=== PATIENT | male | born 1945 | race Caucasian/White ===

== ENCOUNTER → 2020-06-19 | Outpatient (CLI) | payer MEDICARE ==
[2014-05-10 12:00] VITALS: BP 143/79
[~2020-06-19] MED LIST: BUPR150T27 PO; DULO30CA44 PO; FURO-68 PO; INSU100I17 SQ; INSU100I18 SQ; INSU300I SQ; LACT10SO35 PO; LINA5TAB PO; LISI-334 PO; METF10007 PO; PANT40TA77 PO; PROP10TA PO
== END | disposition home or self-care (01) ==
LOC: LAB 14:57
PROVIDERS: ATTEND Internal Medicine Gastroenterology
DX: Z20.828 Contact with and (suspected) exposure to other viral communicable diseases (principal)
CPT/HCPCS: U0003-CS

== ENCOUNTER → 2020-06-22 | Day surgery (SDC) | payer MEDICARE, BC ==
[~2020-06-22] MED LIST changes: +IV RINGERS,LACTATED 1000ML 1,000 ML IV ONE; +LIDOCAINE 2% PF 5 ML VIAL. ONE; +PROPOFOL 10 MG/ML (20ML) VIAL. IV ONE
[2020-06-22 09:30] VITALS: BP 150/76
--- NOTE | 2020-06-29 11:08 | PATHOLOGY ---
[facility] Accession Number: [id number] . 01 Material submitted: . colon - RANDOM COLON BX . 01 Clinical history: . DIARRHEA, HX VARICES, COLITIS . 02 Diagnosis: Large bowel "random", endoscopic biopsy: - Large bowel mucosa with features suggestive of collagenous colitis. - Negative for active inflammation, crypt architectural distortion, granulomatous inflammation, dysplasia, and malignancy. (MLK:pit; 06/29/2020) QTP 06/29/2020 1037 Local . 02 Electronically signed: . Marco A Escalona MD, Pathologist NPI- [id number] . 01 Gross description: . The specimen is received in formalin, labeled "Derick Orourke, random colon biopsy". Received are multiple (greater than 10) segments of pale sanchez soft tissue ranging in size from 0.2 to 0.4 cm in maximum dimensions. The specimen is submitted entirely in cassette A1. (CAA; 06/22/2020) QAC/QA 06/22/2020 1653 Local . 02 Pathologist provided ICD-10: R19.7 . 02 CPT . 279310 Specimen Comment: A courtesy copy of this report has been sent to [phone], [phone] Specimen Comment: [id number] Specimen Comment: Report sent to / Performed at: 01 [facility] [address], [place] [id number] MD Dominick Draper MD Phone: [phone] Performed at: 02 [facility] [address] [place], [place] [id number] MD Derick Whaley MD Phone: [phone]
== END | disposition home or self-care (01) ==
LOC: ENDOS 07:38
PROVIDERS: ATTEND Internal Medicine Gastroenterology
DX: R19.7 Diarrhea, unspecified (principal); D64.9 Anemia, unspecified; I10 Essential (primary) hypertension; K52.89 Other specified noninfective gastroenteritis and colitis; K64.0 First degree hemorrhoids; K31.89 Other diseases of stomach and duodenum; I85.10 Secondary esophageal varices without bleeding; K74.60 Unspecified cirrhosis of liver; E11.9 Type 2 diabetes mellitus without complications; F41.9 Anxiety disorder, unspecified; Z98.890 Other specified postprocedural states; Z79.899 Other long term (current) drug therapy; Z83.3 Family history of diabetes mellitus; Z82.49 Family history of ischemic heart disease and other diseases of the circulatory system; Z79.84 Long term (current) use of oral hypoglycemic drugs
CPT/HCPCS: 43235; 45380; J2704

== ENCOUNTER 2020-09-03 10:00 | Outpatient (CLI) | payer MEDICARE, BC ==
[~2020-09-03] VITALS: Ht 190.5 cm; Wt 116.1 kg
[~2020-09-03 10:00] MED LIST changes: -IV RINGERS,LACTATED 1000ML 1,000 ML IV ONE; -LIDOCAINE 2% PF 5 ML VIAL. ONE; -PROPOFOL 10 MG/ML (20ML) VIAL. IV ONE
[2020-09-03] MEDS ORDERED: DULA0.75 SQ (10:31)
[2020-09-03] MEDS ORDERED: PROP80CA3 PO (10:31)
[2020-09-03 10:36] LABS: BASO % 1 % (0-3); EOS # 0.1 x10^3/uL (0.0-0.7); EOS % 3 % (0-3); HEMATOCRIT 32.5 % (39.0-53.0); HEMOGLOBIN 11.1 g/dL (13.0-17.5); LYMPH # 0.6 x10^3/uL (1.0-4.8); LYMPH % 22 % (24-48); MEAN CORPUSCULAR HEMOGLOBIN 33 pg (25-35); MEAN CORPUSCULAR HGB CONC 34 g/dL (31-37); MEAN CORPUSCULAR VOLUME 98 fL (79-100); MONO # 0.4 x10^3/uL (0.0-1.1); MONO % 13 % (0-9); NEUT # 1.7 x10^3/uL (1.8-7.7); NEUT % 62 % (31-73); PLATELET COUNT 73 x10^3/uL (140-400); RED BLOOD COUNT 3.33 x10^6/uL (4.30-5.70); RED CELL DISTRIBUTION WIDTH 15.3 % (11.5-14.5); WHITE BLOOD COUNT 2.8 x10^3/uL (4.0-11.0)
[2020-09-03 10:40] VITALS: BP 143/78
[2020-09-03] MEDS ORDERED: LIDOCAINE WITH 8.4% SOD BICARB 3 ML DISP.SYRIN. ONE (10:46)
[2020-09-03 10:47] LABS: CALCIUM 8.8 mg/dL (8.5-10.1); GFR 72.8; POTASSIUM 4.7 mmol/L (3.5-5.1)
[2020-09-03 11:07] VITALS: BP 150/78
[2020-09-03] MEDS ORDERED: LIDOCAINE WITH 8.4% SOD BICARB 3 ML DISP.SYRIN. INJ ONE (11:15)
[2020-09-03 11:20] VITALS: BP 150/70
[2020-09-03] MEDS ORDERED: ALBUMIN HUMAN 25% 200 ML IV ONE (11:31)
[2020-09-03 11:35] VITALS: BP 149/72
[2020-09-03] MEDS ORDERED: ALBUMIN HUMAN 25% 100 ML IV ONE ×2 (11:45)
[2020-09-03 11:50] VITALS: BP 131/69
[2020-09-03 12:20] VITALS: BP 152/76
--- NOTE | 2020-09-03 12:38 | NUR ---
pt discharged home with family. JONNA cheng.
--- NOTE | 2020-09-03 15:29 | RAD ---
Ultrasound-guided paracentesis 09/03/2020 1:26 PM Procedure: The risks and benefits of the procedure were discussed the patient. Informed consent was obtained. A timeout procedure was performed. Sonographic evaluation of the abdomen was performed demonstrating ascites . The right lower quadrant was prepped and draped using maximum sterile barrier technique. 1% lidocaine without epinephrine was administered for local anesthesia. Real-time ultrasonographic guidance was used in passing a 5 Frisian Yueh catheter into the fluid collection. 6.5 L of serous ascites was removed. The catheter was removed and pressure held to achieve hemostasis. A sterile dressing was applied. Impression: Successful ultrasound-guided paracentesis
== END 2020-09-03 12:42 | disposition home or self-care (01) ==
LOC: INTRAD 10:00
PROVIDERS: ATTEND Family Medicine
DX: R18.8 Other ascites (principal); I10 Essential (primary) hypertension; E78.00 Pure hypercholesterolemia, unspecified; F41.9 Anxiety disorder, unspecified; F32.9 Major depressive disorder, single episode, unspecified; M19.90 Unspecified osteoarthritis, unspecified site; M10.9 Gout, unspecified; Z85.46 Personal history of malignant neoplasm of prostate; Z79.899 Other long term (current) drug therapy; Z98.890 Other specified postprocedural states
CPT/HCPCS: 36415; 49083; 80048; 85025; 85610; C1892; J3490; P9046

== ENCOUNTER 2020-10-18 08:28 | Outpatient (CLI) | payer MEDICARE, BC ==
[2020-10-18] VITALS (8 sets, daily range): BP systolic 127–154; BP diastolic 62–86
[~2020-10-18] VITALS: Ht 190.5 cm; Wt 108.9 kg
[~2020-10-18 08:28] MED LIST changes: +DULA0.75 SQ; +PROP80CA3 PO
[2020-10-18 08:53] LABS: HEMATOCRIT 32.7 % (39.0-53.0); RED BLOOD COUNT 3.38 x10^6/uL (4.30-5.70); RED CELL DISTRIBUTION WIDTH 14.8 % (11.5-14.5); WHITE BLOOD COUNT 2.9 x10^3/uL (4.0-11.0)
[2020-10-18 09:02] LABS: CALCIUM 8.5 mg/dL (8.5-10.1); CREATININE 1.1 mg/dL (0.7-1.3); GFR 65.3
[2020-10-18 09:06] LABS: PROTHROMBIN TIME PATIENT 15.8 SEC (11.7-14.0)
[2020-10-18] MEDS ORDERED: LIDOCAINE WITH 8.4% SOD BICARB 3 ML DISP.SYRIN. ONE (09:19)
[2020-10-18] MEDS ORDERED: LIDOCAINE WITH 8.4% SOD BICARB 3 ML DISP.SYRIN. INJ ONE (09:30)
[2020-10-18] MEDS ORDERED: ALBUMIN HUMAN 25% 100 ML IV ONE ×4 (09:48→10:10)
--- NOTE | 2020-10-18 10:59 | NUR ---
Patient d/c, taken to vehicle via wheelchair. Instructions on incision site care, paracentesis given to patient. No questions at time of d/c. Told to continue home medications. All belongings w/ patient.
--- NOTE | 2020-10-18 12:18 | RAD ---
Ultrasound-guided paracentesis 10/18/2020 10:14 AM Procedure: The risks and benefits of the procedure were discussed the patient. Informed consent was obtained. A timeout procedure was performed. Sonographic evaluation of the abdomen was performed demonstrating ascites . The right lower quadrant was prepped and draped using maximum sterile barrier technique. 1% lidocaine without epinephrine was administered for local anesthesia. Real-time ultrasonographic guidance was used in passing a 5 Lebanese Yueh catheter into the fluid collection. 8.1 L of serous ascites was removed. The catheter was removed and pressure held to achieve hemostasis. A sterile dressing was applied. Impression: Successful ultrasound-guided paracentesis
== END 2020-10-18 11:00 | disposition home or self-care (01) ==
LOC: INTRAD 08:28
PROVIDERS: ATTEND Family Medicine
DX: R18.8 Other ascites (principal); K74.60 Unspecified cirrhosis of liver; I10 Essential (primary) hypertension; E78.00 Pure hypercholesterolemia, unspecified; E11.9 Type 2 diabetes mellitus without complications; M19.90 Unspecified osteoarthritis, unspecified site; F41.9 Anxiety disorder, unspecified; M10.9 Gout, unspecified; F32.9 Major depressive disorder, single episode, unspecified; Z98.42 Cataract extraction status, left eye; Z98.41 Cataract extraction status, right eye; Z90.89 Acquired absence of other organs; Z79.899 Other long term (current) drug therapy; Z98.890 Other specified postprocedural states; Z87.19 Personal history of other diseases of the digestive system; Z86.69 Personal history of other diseases of the nervous system and sense organs; Z85.46 Personal history of malignant neoplasm of prostate; Z79.4 Long term (current) use of insulin; Z72.89 Other problems related to lifestyle
CPT/HCPCS: 36415; 49083; 80048; 85027; 85610; C1892; J3490; P9046

== ENCOUNTER 2020-11-01 07:39 | Outpatient (CLI) | payer MEDICARE, BC ==
[~2020-11-01] VITALS: Ht 190.5 cm; Wt 108.9 kg
[2020-11-01] VITALS (8 sets, daily range): BP systolic 112–159; BP diastolic 62–83
[2020-11-01] MEDS ORDERED: LIDOCAINE WITH 8.4% SOD BICARB 3 ML DISP.SYRIN. ONE (08:12)
[2020-11-01] MEDS: LIDOCAINE WITH 8.4% SOD BICARB 3 ML DISP.SYRIN. IJ ONE ×2 (08:41→08:45)
[2020-11-01] MEDS ORDERED: ALBUMIN HUMAN 25% 200 ML IV ONE (08:57)
[2020-11-01] MEDS ORDERED: ALBUMIN HUMAN 25% 100 ML IV ONE ×2 (09:15)
--- NOTE | 2020-11-01 12:59 | RAD ---
Procedure: Ultrasound guided paracentesis Clinical Indication: Adult male with abdominal ascites Sedation: Local anesthesia only Antibiotics: None Fluoro Time: None Contrast: Not applicable Sterility: The procedure was performed in its entirety using appropriate elements of sterile technique. Consent: The procedure was explained in its entirety to the patient or the patients designated residential sales representative by a member of the treatment team, including a discussion of the risks, benefits and commonly accepted alternatives to the procedure, as well as the expected consequences of no therapy whatsoever. Discussion of the risks included, but was not limited to, those that are most frequent and those that are rare but possibly severe or life-threatening, as well as the possibility of unforeseen complications. Technique and Findings: Following informed consent, the patient was prepped and draped in the usual sterile fashion. Ultrasound interrogation of the abdomen revealed abdominal ascites. A hard copy ultrasound image was recorded. 1% Lidocaine was used to achieve local anesthesia over the area of interest, and a 6 Lao [id number] catheter was advanced into the peritoneal cavity under ultrasound guidance. 7400 cc of thin yellow ascites was then withdrawn. The catheter was removed and hemostasis was achieved with manual compression. Complications: No immediate Impression: 1. Ultrasound-guided paracentesis as described
== END 2020-11-01 10:20 | disposition home or self-care (01) ==
LOC: INTRAD 07:39
PROVIDERS: ATTEND Family Medicine
DX: K74.69 Other cirrhosis of liver (principal); I10 Essential (primary) hypertension; E11.9 Type 2 diabetes mellitus without complications; E78.00 Pure hypercholesterolemia, unspecified; M19.90 Unspecified osteoarthritis, unspecified site; M10.9 Gout, unspecified; F41.9 Anxiety disorder, unspecified; F32.9 Major depressive disorder, single episode, unspecified; Z85.46 Personal history of malignant neoplasm of prostate; Z79.899 Other long term (current) drug therapy; Z79.4 Long term (current) use of insulin; Z98.890 Other specified postprocedural states; Z72.89 Other problems related to lifestyle
CPT/HCPCS: 49083; C1892; J3490; P9046

== ENCOUNTER 2020-11-08 09:05 | Inpatient (IN) | payer MEDICARE, BC ==
[~2020-11-08] VITALS: Ht 190.5 cm; Wt 102.0 kg
[2020-11-08 08:50] VITALS: BP 142/71
[~2020-11-08 09:05] MED LIST changes: -LISI-334 PO; +LISI20TA18 PO
[2020-11-08] MEDS ORDERED: LOPE-101 PO (10:48)
[2020-11-08 11:59] VITALS: BP 141/70
--- NOTE | 2020-11-08 12:11 | PDOC2 ---
GI CONSULT Date of Service: DATE: 11/08/20 TIME: 11:47 Reason For Consult: cirrhosis liver, paracentesis, chronic diarrhea HPI: HPI: 75 y/o male transferred from [facility] w/ shortness of breath, +COVID 11/02/20. H/o cirrhosis reportedly from fatty liver and alcohol. H/o variceal bleeding and ascites/paracentesis in 2013. S/p TIPS then - no issues w/ bleeding or ascites since then until 08/2020 - TIPS thrombosed (see US here 09/17, also reports MRI by urologist in showed non-functioning TIPS). Paracentesis x 4 since then, last 7.4L on 11/01. Takes furosemide at home. He thought maybe he needed paracentesis again because he felt so short of breath but also says his abdomen is still pretty soft and isn't as big as it has been in the past before previous paracentesis. At [facility]: WBC 3.4, Hgb 10.8, MCV 95, plt 77, INR 1.4, D-dimer 7.41, bili 2.2, AST 60, ALT45, Alk Phos 86, AG ratio 0.7, BNP 2992, troponin 0.066, magnesium 1.6, lactic acid 2.3, ammonia 62. CT chest: no PE, groundglass and bandlike opacities throughout both lungs c/w atypical infection, cirrhosis w/ TIPS and moderate ascites. No reflux, dysphagia, n/v, constipation, hematochezia, melena, or change in appetite. EGD and colonoscopy w/ Dr. Hunter in 06/2020 - pathology indicates colon biopsies w/ collagenous colitis. Takes Imodium PRN - current bowel pattern is 1 soft stool every other day or so. No GB, pancreas, or PUD history. No NSAIDs. Hasn't been drinking recently. PMH: PMH: HTN, HLD, DM, prostate cancer, OA, gout radiation, bilateral knee replacement, cataract removal, tonsillectomy FH: Family History: No pertinent hx Social History: Smoke: No ALCOHOL: other (intermittent sobriety, no alcohol recently) Drugs: None ROS: GEN: Denies fevers, chills, sweats HEENT: Denies blurred vision, sore throat CV: Denies chest pain RESP: +SOA GI: Per HPI : Denies hematuria, dysuria ENDO: Denies weight changes NEURO: Denies confusion, dizziness MSK: +weakness SKIN: Denies jaundice, pruritus Vitals: Vitals: Vital Signs Date Time Temp Pulse Resp B/P (MAP) Pulse Ox O2 Delivery O2 Flow Rate FiO2 11/08/20 10:49 Nasal Cannula 3.0 11/08/20 08:50 97.0 73 18 142/71 (94) 97 97.0 Labs: Labs: Per HPI. Allergies: Coded Allergies: No Known Drug Allergies (Unverified , 06/22/20) Imaging: Imaging: Per HPI. PE: GEN: breathing heavily HEENT: Atraumatic, PERRL LUNGS: tachypneic, diminished, NC 3L HEART: RR ABD: round, large w/ ascites, still soft EXTREMITY: trace BLE edema SKIN: No rashes, no jaundice NEURO/PSYCH: A & O 3 A/P: A/P: COVID-19 infection (+11/02), resp failure - per primary Pancytopenia, coagulopathy, mildly elevated bili and AST, hyperammonemia Elevated BNP and D-dimer, mildly elevated troponin, hypomagnesemia, lactic acidosis - per primary Cirrhosis, h/o variceal bleeding and ascites - s/p TIPS in 2013 - now thrombosed and requiring paracentesis every couple weeks (last 11/01/20 7.4L) - MELD 16 CRC screen - UTD (06/2020) Collagenous colitis - takes Imodium PRN - denies diarrhea currently -- Moderate ascites on chest CT. Could consider repeating paracentesis soon - will review w/ Dr. Hunter. DAV LUNDY Nov 08, 2020 12:11
[2020-11-08] MEDS ORDERED: LACTULOSE 20 GM/30 ML SOLUTION. PO PRN (12:15)
[2020-11-08] MEDS ORDERED: DEXAMETHASONE SOD PHOS 4 MG/ML VIAL IVP ONE (12:30)
[2020-11-08] MEDS ORDERED: MAG HYDROX/ALUMINUM HYD/SIMETH 30 ML ORAL.SUSP PO PRN (12:45)
[2020-11-08] MEDS ORDERED: ACETAMINOPHEN 325 MG TABLET. PO PRN (12:45)
[2020-11-08] MEDS ORDERED: CALCIUM CARBONATE 500 MG TAB.CHEW PO PRN (12:45)
[2020-11-08] MEDS ORDERED: BISACODYL 10 MG SUPP.RECT. PR PRN (12:45)
[2020-11-08] MEDS: cefTRIAXone IV Push 1 GM VIAL. IVP SCH (13:11)
[2020-11-08 13:20] LABS: BASO % 0 % (0-3); EOS % 0 % (0-3); HEMATOCRIT 32.8 % (39.0-53.0); LYMPH # 0.1 x10^3/uL (1.0-4.8); LYMPH % 8 % (24-48); MEAN CORPUSCULAR HEMOGLOBIN 32 pg (25-35); MEAN CORPUSCULAR HGB CONC 34 g/dL (31-37); MEAN CORPUSCULAR VOLUME 96 fL (79-100); MONO # 0.1 x10^3/uL (0.0-1.1); MONO % 7 % (0-9); NEUT # 1.3 x10^3/uL (1.8-7.7); NEUT % 85 % (31-73); PLATELET COUNT 57 x10^3/uL (140-400); RED BLOOD COUNT 3.42 x10^6/uL (4.30-5.70); RED CELL DISTRIBUTION WIDTH 14.8 % (11.5-14.5)
[2020-11-08 13:23] LABS: WHITE BLOOD COUNT 1.6 x10^3/uL (4.0-11.0)
[2020-11-08 13:43] LABS: ALBUMIN 2.6 g/dL (3.4-5.0); ALBUMIN/GLOBULIN RATIO 0.6 (1.0-1.7); CALCIUM 8.4 mg/dL (8.5-10.1); CREATININE 1.3 mg/dL (0.7-1.3); GFR 53.8; TOTAL BILIRUBIN 2.4 mg/dL (0.2-1.0); TOTAL PROTEIN 6.9 g/dL (6.4-8.2)
--- NOTE | 2020-11-08 13:57 | PDOC1 ---
History and Physical Date of Admission Date of Admission DATE: 11/08/20 TIME: 13:57 Identification/Chief Complaint Chief Complaint Shortness of breath Source Source: Chart review, Patient History of Present Illness History of Present Illness Mr Orourke is a 75-year-old male w/ PMHx prostate ca (s/p radx 2014), depression, DM2, Cirrhosis who presents to [facility] with report of shortness of breath that occurred upon waking day of admission when getting up to go to the restroom. Patient was recently diagnosed with COVID-19 on 11/02/2020. Has cirrhosis with regular paracentesis, last paracentesis was approximately 1 week ago at [facility]. Patient reports his abdomen does not feel overly distended and does not think he needs paracentesis at this time. Reports subjective fever and chills. Denies trauma. Very short of breath. H/o cirrhosis reportedly from fatty liver and alcohol. H/o variceal bleeding and ascites/paracentesis in 2013. S/p TIPS then - no issues w/ bleeding or ascites since then until 08/2020 - TIPS thrombosed (see US here 09/17, also reports MRI by urologist in showed non-functioning TIPS). Paracentesis x 4 since then, last 7.4L on 11/01. Labs at [facility] with WBC 3.4, Hb 10.8, platelets 77, NA 136, K3.9, BUN 20, CR 1, glucose 137, magnesium 1.6, bilirubin 2.2, AST 60, ALT 45, INR 1.4, troponin 0 0.066, BNP 2592, albumin 2.6, ammonia 62, lactic acid 2.3, D-dimer 7.41 CTPA with no pulmonary embolism, bilateral diffuse groundglass opacities, cirrhosis with TIPS moderate ascites. EKG appears NSR at 88 bpm, some baseline artifact noted primarily to aVL, NO ST elevation, LAFB, QRS 86ms, QT/QTc 396/483ms Patient was found to be hypoxic upon EMS arrival. Improved with supplemental O2. Patient transferred to [place] for further care due to lack of GI resources at [facility]. Seen bedside with O2 saturations 91% on 3 L nasal cannula O2. Patient notes that he feels terrible. He is requested Covid treatment advised remdesivir and liver disease has not been well studied. He wishes to move forward with treatment. Past Medical History Cardiovascular: HTN Hepatobiliary: Cirrhosis Musculoskeletal: Osteoarthritis Endocrine: Diabetes Past Surgical History Past Surgical History: Other (TIPS) Family History Family History: Hypertension Social History Smoke: No ALCOHOL: other (intermittent sobriety, no alcohol recently) Drugs: None Current Medications Current Medications Current Medications Furosemide (Lasix) 40 mg DAILY PO ; Start 11/09/20 at 09:00 Lactulose (Lactulose) 20 gm DAILY PO ; Start 11/09/20 at 09:00 Lactulose (Lactulose) 20 gm PRN DAILY PRN PO CONSTIPATION; Start 11/08/20 at 12:15 Dexamethasone Sodium Phosphate (Decadron) 6 mg DAILY IVP ; Start 11/09/20 at 09:00 Dexamethasone Sodium Phosphate (Decadron) 6 mg 1X ONCE IVP Last administered on 11/08/20at 13:10; Start 11/08/20 at 12:30; Stop 11/08/20 at 12:35; Status DC Ceftriaxone Sodium (Rocephin) 1 gm Q24H IVP Last administered on 11/08/20at 13:11; Start 11/08/20 at 13:00; Stop 11/12/20 at 13:01 Doxycycline Hyclate 100 mg/ Dextrose 100 ml @ 50 mls/hr Q12HR IV ; Start 11/08/20 at 21:00; Stop 11/13/20 at 20:59 Ondansetron HCl (Zofran) 4 mg PRN Q6HRS PRN IVP NAUSEA/VOMITING; Start 11/08/20 at 12:45 Al Hydroxide/Mg Hydroxide (Mylanta Plus Xs) 30 ml PRN Q3HRS PRN PO HEARTBURN / GAS; Start 11/08/20 at 12:45 Calcium Carbonate/ Glycine (Tums) 500 mg PRN Q3HRS PRN PO UPSET STOMACH; Start 11/08/20 at 12:45 Acetaminophen (Tylenol) 650 mg PRN Q6HRS PRN PO Headaches, Temp > 101.5F; Start 11/08/20 at 12:45 Bisacodyl (Dulcolax Supp) 10 mg PRN DAILY PRN NC CONSTIPATION; Start 11/08/20 at 12:45 Enoxaparin Sodium (Lovenox 40mg Syringe) 40 mg Q24H SQ ; Start 11/08/20 at 16:00 Active Scripts Active Reported Imodium A-D (Loperamide HCl) 2 Mg Capsule 2 Mg PO PRN PRN Propranolol Hcl 80 Mg Cap.sa.24h 80 Mg PO DAILY Lisinopril 20 Mg Tablet 20 Mg PO DAILY Lasix (Furosemide) 40 Mg Tablet 40 Mg PO DAILY Metformin Hcl 1,000 Mg Tablet 1,000 Mg PO BIDWMEALS Toujeo Solostar (Insulin Glargine,Hum.rec.anlog) 300 Unit/1 Ml Insuln.pen 30 Unit SQ DAILY Novolog Flexpen (Insulin Aspart) 100 Unit/1 Ml Insuln.pen 25 Unit SQ TIDAC uses sliding scale based on Dexacom Duloxetine Hcl 30 Mg Capsule.dr 30 Mg PO DAILY Allergies Allergies: Coded Allergies: No Known Drug Allergies (Unverified , 06/22/20) ROS General: YES: Chills, Fatigue, Malaise, Appetite; No: Night Sweats, Other PSYCHOLOGICAL ROS: YES: Anxiety; No: Behavioral Disorder, Concentration difficultie, Decreased libido, Depression, Disorientation, Hallucinations, Hostility, Irritablity, Memory difficulties, Mood Swings, Obsessive thoughts, Physical abuse, Sexual abuse, Sleep disturbances, Suicidal ideation, Other Eyes: No Blurry vision, No Decreased vision, No Double vision, No Dry eyes, No Excessive tearing, No Eye Pain, No Itchy Eyes, No Loss of vision, No Photophobia, No Scotomata, No Uses contacts, No Uses glasses, No Other HEENT: No: Heacaches, Visual Changes, Hearing change, Nasal congestion, Nasal discharge, Oral lesions, Sinus pain, Sore Throat, Epistaxis, Sneezing, Snoring, Tinnitus, Vertigo, Vocal changes, Other ALLERGY AND IMMUNOLOGY: No: Hives, Insect Bite Sensitivity, Itchy/Watery Eyes, Nasal Congestion, Post Nasal Drip, Seasonal Allergies, Other Hematological and Lymphatic: YES: Bleeding Problems; No: Blood Clots, Blood Transfusions, Brusing, Night Sweats, Pallor, Swollen Lymph Nodes, Other ENDOCRINE: No: Breast Changes, Galactorrhea, Hair Pattern Changes, Hot Flashes, Malaise/lethargy, Mood Swings, Palpitations, Polydipsia/polyuria, Skin Changes, Temperature Intolerance, Unexpected Weight Changes, Other Breast: No New/Changing Breast Lumps, No Nipple changes, No Nipple discharge, No Other Respiratory: YES: Cough, Shortness of breath; No: Hemoptysis, Orthopnea, Pleuritic Pain, SOB with excertion, Sputum Changes, Stridor, Tachypnea, Wheezing, Other Cardiovascular: No Chest Pain, No Palpitations, No Orthopnea, No Paroxysmal Noc. Dyspnea, No Edema, No Lt Headedness, No Other Gastrointestinal: Yes Nausea; No Vomiting, No Abdominal Pain, No Diarrhea, No Constipation, No Melena, No Hematochezia, No Other Genitourinary: No Dysuria, No Frequency, No Incontinence, No Hematuria, No Retention, No Discharge, No Urgency, No Pain, No Flank Pain, No Other, No , No , No , No , No , No , No Musculoskeletal: No Gait Disturbance, No Joint Pain, No Joint Stiffness, No Joint Swelling, No Muscle Pain, No Muscular Weakness, No Pain In:, No Swelling In:, No Other Neurological: No Behavorial Changes, No Bowel/Bladder ControlChng, No Confusion, No Dizziness, No Gait Disturbance, No Headaches, No Impaired Coor d/balance, No Memory Loss, No Numbness/Tingling, No Seizures, No Speech Problems, No Tremors, No Visual Changes, No Weakness, No Other Skin: No Dry Skin, No Eczema, No Hair Changes, No Lumps, No Mole Changes, No Mottling, No Nail Changes, No Pruritus, No Rash, No Skin Lesion Changes, No Other, No Acne Physical Exam General: Alert, Oriented X3, Cooperative, moderate distress HEENT: Atraumatic, PERRLA, EOMI, Mucous membr. moist/pink Lungs: Other (Bilateral rhonchi) Heart: S1S2, RRR, no thrills, no rubs, no gallops, no murmurs Abdomen: Normal bowel sounds, Soft, No tenderness, No hepatosplenomegaly, No masses, Other (Fluid wave) Rectal Exam: not examined Extremities: No clubbing, No cyanosis, No edema, Normal pulses, No tenderness/swelling Skin: No rashes, No breakdown, No significant lesion Neuro: Normal gait, Normal speech, Strength at 5/5 X4 ext, Normal tone, Sensation intact, Cranial nerves 3-12 NL, Reflexes 2+ Psych/Mental Status: Mental status NL, Mood NL Vitals Vitals Vital Signs Date Time Temp Pulse Resp B/P (MAP) Pulse Ox O2 Delivery O2 Flow Rate FiO2 11/08/20 11:59 97.5 71 22 141/70 (93) 98 Nasal Cannula 3.0 97.5 Labs Labs Laboratory Tests Test 11/08/20 13:08 White Blood Count 1.6 x10^3/uL (4.0-11.0) Red Blood Count 3.42 x10^6/uL (4.30-5.70) Hemoglobin 11.0 g/dL (13.0-17.5) Hematocrit 32.8 % (39.0-53.0) Mean Corpuscular Volume 96 fL (79-100) Mean Corpuscular Hemoglobin 32 pg (25-35) Mean Corpuscular Hemoglobin Concent 34 g/dL (31-37) Red Cell Distribution Width 14.8 % (11.5-14.5) Platelet Count 57 x10^3/uL (140-400) Neutrophils (%) (Auto) 85 % (31-73) Lymphocytes (%) (Auto) 8 % (24-48) Monocytes (%) (Auto) 7 % (0-9) Eosinophils (%) (Auto) 0 % (0-3) Basophils (%) (Auto) 0 % (0-3) Neutrophils # (Auto) 1.3 x10^3/uL (1.8-7.7) Lymphocytes # (Auto) 0.1 x10^3/uL (1.0-4.8) Monocytes # (Auto) 0.1 x10^3/uL (0.0-1.1) Eosinophils # (Auto) 0.0 x10^3/uL (0.0-0.7) Basophils # (Auto) 0.0 x10^3/uL (0.0-0.2) Sodium Level 134 mmol/L (136-145) Potassium Level 5.0 mmol/L (3.5-5.1) Chloride Level 100 mmol/L (98-107) Carbon Dioxide Level 27 mmol/L (21-32) Anion Gap 7 (6-14) Blood Urea Nitrogen 21 mg/dL (8-26) Creatinine 1.3 mg/dL (0.7-1.3) Estimated GFR (Cockcroft-Gault) 53.8 BUN/Creatinine Ratio 16 (6-20) Glucose Level 273 mg/dL (70-99) Calcium Level 8.4 mg/dL (8.5-10.1) Total Bilirubin 2.4 mg/dL (0.2-1.0) Aspartate Amino Transf (AST/SGOT) 56 U/L (15-37) Alanine Aminotransferase (ALT/SGPT) 44 U/L (16-63) Alkaline Phosphatase 83 U/L (46-116) Total Protein 6.9 g/dL (6.4-8.2) Albumin 2.6 g/dL (3.4-5.0) Albumin/Globulin Ratio 0.6 (1.0-1.7) Laboratory Tests Test 11/08/20 13:08 White Blood Count 1.6 x10^3/uL (4.0-11.0) Red Blood Count 3.42 x10^6/uL (4.30-5.70) Hemoglobin 11.0 g/dL (13.0-17.5) Hematocrit 32.8 % (39.0-53.0) Mean Corpuscular Volume 96 fL (79-100) Mean Corpuscular Hemoglobin 32 pg (25-35) Mean Corpuscular Hemoglobin Concent 34 g/dL (31-37) Red Cell Distribution Width 14.8 % (11.5-14.5) Platelet Count 57 x10^3/uL (140-400) Neutrophils (%) (Auto) 85 % (31-73) Lymphocytes (%) (Auto) 8 % (24-48) Monocytes (%) (Auto) 7 % (0-9) Eosinophils (%) (Auto) 0 % (0-3) Basophils (%) (Auto) 0 % (0-3) Neutrophils # (Auto) 1.3 x10^3/uL (1.8-7.7) Lymphocytes # (Auto) 0.1 x10^3/uL (1.0-4.8) Monocytes # (Auto) 0.1 x10^3/uL (0.0-1.1) Eosinophils # (Auto) 0.0 x10^3/uL (0.0-0.7) Basophils # (Auto) 0.0 x10^3/uL (0.0-0.2) Sodium Level 134 mmol/L (136-145) Potassium Level 5.0 mmol/L (3.5-5.1) Chloride Level 100 mmol/L (98-107) Carbon Dioxide Level 27 mmol/L (21-32) Anion Gap 7 (6-14) Blood Urea Nitrogen 21 mg/dL (8-26) Creatinine 1.3 mg/dL (0.7-1.3) Estimated GFR (Cockcroft-Gault) 53.8 BUN/Creatinine Ratio 16 (6-20) Glucose Level 273 mg/dL (70-99) Calcium Level 8.4 mg/dL (8.5-10.1) Total Bilirubin 2.4 mg/dL (0.2-1.0) Aspartate Amino Transf (AST/SGOT) 56 U/L (15-37) Alanine Aminotransferase (ALT/SGPT) 44 U/L (16-63) Alkaline Phosphatase 83 U/L (46-116) Total Protein 6.9 g/dL (6.4-8.2) Albumin 2.6 g/dL (3.4-5.0) Albumin/Globulin Ratio 0.6 (1.0-1.7) Images Images CTPA with no pulmonary embolism, bilateral diffuse groundglass opacities, cirrhosis with TIPS moderate ascites. VTE Prophylaxis Ordered VTE Prophylaxis Devices: No VTE Pharmacological Prophylaxi: Yes Assessment/Plan Assessment/Plan A/P: Acute respiratory failure with Hypoxia - related to COVID 19 pneumonia, will also treat for likely gram negative pneumonia as well given his cirrhosis and risk factors.. Steroids and remdesivir ordered. Wean O2 as tolerated COVID-19 - with pneumonia, have d/w patient risks of remdesivir in liver disease, he wishes to have treatment Cirrhosis - with ascites. S/p TIPS for variceal bleeding in 2013. GI following. Will continue diuretics and monitor. EGD and colonoscopy w/ Dr. Hunter in 06/2020 - path w/ collagenous colitis. Hyperammonemia - likely related to cirrhosis Elevated troponin - likely demand ischemia, will trend Anemia- likely of chronic disease. will trend Leukopenia - likely related to liver disease and covid 19, will monitor HTN HLD DM -on Toujeo and sliding scale, will convert to Lantus and increase sliding scale while he is on dexamethasone. Prostate cancer - s/p radiation therapy, in remission OA - stable Gout - not in flare currently FEN - ADA diet PPX - lovenox, will watch platelets FULL CODE Dispo - inpatient telemetry monitoring in COVID 19 isolation unit Justifications for Admission Other Justification Acute respiratory failure with hypoxia, COVID-19 pneumonia VERÓNICA HOWELL MD Nov 08, 2020 13:57
[2020-11-08] MEDS ORDERED: DEXTROSE 50% 25 GM / 50ML DISP.SYRIN. IV PRN (14:15)
[2020-11-08] MEDS ORDERED: guaiFENesin DM 200MG/20MG 10 ML SYRUP PO PRN (14:45)
[2020-11-08] MEDS ORDERED: REMDESIVIR LOAD in IV NORMAL SALINE 250ML TV IV ONE (15:00)
[2020-11-08 15:02] VITALS: BP 148/96
[2020-11-08 15:09] LABS: % BANDS 14 % (0-9); % LYMPHS 2 % (24-48); % MONOS 3 % (0-10); % SEGS 81 % (35-66)
[2020-11-08 15:10] LABS: PLT ESTIMATE DECREASED (ADEQUATE)
[2020-11-08] MEDS: ENOXAPARIN 40 MG/0.4 ML SYRINGE. SQ SCH (15:52)
[2020-11-08] MEDS: THIAMINE 100 MG TABLET. PO SCH (15:52)
[2020-11-08] MEDS: ZINC SULFATE 220 MG CAPSULE. PO SCH (15:52)
[2020-11-08] MEDS: PROPRANOLOL ER 80 MG CAP.ER.24H. PO SCH (15:52)
[2020-11-08] MEDS: INSULIN LISPRO 300 UNITS/3 ML VIAL. SQ SCH ×2 (17:30→17:31)
[2020-11-08] MEDS: INSULIN GLARGINE SYRINGE. SQ SCH (20:46)
[2020-11-08] MEDS: DOXYCYCLINE HYCLATE 100 MG in IV DEXTROSE 5% 100ML 100 ML IV SCH (20:46)
[2020-11-08 20:51] VITALS: BP 172/79
[2020-11-08] MEDS ORDERED: INSULIN LISPRO 300 UNITS/3 ML VIAL. SQ ONE (21:45)
[2020-11-08] MEDS: ALBUTEROL SULFATE 8GM INHALER. INH PRN (22:55)
[2020-11-08 23:22] VITALS: BP 138/80
[2020-11-09 04:52] LABS: BASO % 0 % (0-3); EOS % 0 % (0-3); HEMATOCRIT 29.2 % (39.0-53.0); HEMOGLOBIN 9.9 g/dL (13.0-17.5); LYMPH # 0.1 x10^3/uL (1.0-4.8); LYMPH % 10 % (24-48); MEAN CORPUSCULAR HEMOGLOBIN 32 pg (25-35); MEAN CORPUSCULAR HGB CONC 34 g/dL (31-37); MEAN CORPUSCULAR VOLUME 94 fL (79-100); MONO # 0.2 x10^3/uL (0.0-1.1); MONO % 12 % (0-9); NEUT % 78 % (31-73); PLATELET COUNT 61 x10^3/uL (140-400); RED CELL DISTRIBUTION WIDTH 14.8 % (11.5-14.5)
[2020-11-09 04:54] LABS: WHITE BLOOD COUNT 1.3 x10^3/uL (4.0-11.0)
[2020-11-09 05:02] VITALS: BP 156/81
[2020-11-09 05:13] LABS: ALBUMIN 2.2 g/dL (3.4-5.0); ALBUMIN/GLOBULIN RATIO 0.6 (1.0-1.7); CALCIUM 7.9 mg/dL (8.5-10.1); CREATININE 1.1 mg/dL (0.7-1.3); GFR 65.3; POTASSIUM 4.3 mmol/L (3.5-5.1); TOTAL BILIRUBIN 1.3 mg/dL (0.2-1.0); TOTAL PROTEIN 6.1 g/dL (6.4-8.2)
[2020-11-09 05:35] LABS: MAGNESIUM 2.1 mg/dL (1.8-2.4)
[2020-11-09 07:00] VITALS: BP 153/70
[2020-11-09] MEDS: THIAMINE 100 MG TABLET. PO SCH (08:48)
[2020-11-09] MEDS: PROPRANOLOL ER 80 MG CAP.ER.24H. PO SCH (08:48)
[2020-11-09] MEDS: DOXYCYCLINE HYCLATE 100 MG in IV DEXTROSE 5% 100ML 100 ML IV SCH ×2 (08:48→20:12)
[2020-11-09] MEDS: DULoxetine HCL 30 MG CAPSULE.DR PO SCH (08:48)
[2020-11-09] MEDS: ZINC SULFATE 220 MG CAPSULE. PO SCH (08:48)
[2020-11-09] MEDS: LACTULOSE 20 GM/30 ML SOLUTION. PO SCH ×2 (08:49→09:00)
[2020-11-09] MEDS: DEXAMETHASONE SOD PHOS 4 MG/ML VIAL IVP SCH (08:49)
[2020-11-09] MEDS: FUROSEMIDE 40 MG TABLET. PO SCH (08:49)
[2020-11-09] MEDS: INSULIN LISPRO 300 UNITS/3 ML VIAL. SQ SCH ×6 (08:54→17:04)
--- NOTE | 2020-11-09 10:20 | PDOC ---
Date of Service: DATE: 11/09/20 TIME: 10:05 Subjective: Subjective: Doing okay. Objective: Objective: D/w nurse - no GI concerns. Vital Signs: Vital Signs Date Time Temp Pulse Resp B/P (MAP) Pulse Ox O2 Delivery O2 Flow Rate FiO2 11/09/20 08:48 62 153/70 11/09/20 07:00 96.1 18 91 Nasal Cannula 2.0 96.1 Labs: Laboratory Tests Test 11/08/20 11:58 11/08/20 13:08 11/09/20 04:30 Glucose (Fingerstick) 208 mg/dL White Blood Count 1.6 x10^3/uL 1.3 x10^3/uL Red Blood Count 3.42 x10^6/uL 3.10 x10^6/uL Hemoglobin 11.0 g/dL 9.9 g/dL Hematocrit 32.8 % 29.2 % Mean Corpuscular Volume 96 fL 94 fL Mean Corpuscular Hemoglobin 32 pg 32 pg Mean Corpuscular Hemoglobin Concent 34 g/dL 34 g/dL Red Cell Distribution Width 14.8 % 14.8 % Platelet Count 57 x10^3/uL 61 x10^3/uL Neutrophils (%) (Auto) 85 % 78 % Lymphocytes (%) (Auto) 8 % 10 % Monocytes (%) (Auto) 7 % 12 % Eosinophils (%) (Auto) 0 % 0 % Basophils (%) (Auto) 0 % 0 % Neutrophils # (Auto) 1.3 x10^3/uL 1.0 x10^3/uL Lymphocytes # (Auto) 0.1 x10^3/uL 0.1 x10^3/uL Monocytes # (Auto) 0.1 x10^3/uL 0.2 x10^3/uL Eosinophils # (Auto) 0.0 x10^3/uL 0.0 x10^3/uL Basophils # (Auto) 0.0 x10^3/uL 0.0 x10^3/uL Segmented Neutrophils % 81 % Band Neutrophils % 14 % Lymphocytes % 2 % Monocytes % 3 % Platelet Estimate Decreased Sodium Level 134 mmol/L 139 mmol/L Potassium Level 5.0 mmol/L 4.3 mmol/L Chloride Level 100 mmol/L 104 mmol/L Carbon Dioxide Level 27 mmol/L 26 mmol/L Anion Gap 7 9 Blood Urea Nitrogen 21 mg/dL 26 mg/dL Creatinine 1.3 mg/dL 1.1 mg/dL Estimated GFR (Cockcroft-Gault) 53.8 65.3 BUN/Creatinine Ratio 16 24 Glucose Level 273 mg/dL 248 mg/dL Calcium Level 8.4 mg/dL 7.9 mg/dL Total Bilirubin 2.4 mg/dL 1.3 mg/dL Aspartate Amino Transf (AST/SGOT) 56 U/L 44 U/L Alanine Aminotransferase (ALT/SGPT) 44 U/L 37 U/L Alkaline Phosphatase 83 U/L 75 U/L Total Protein 6.9 g/dL 6.1 g/dL Albumin 2.6 g/dL 2.2 g/dL Albumin/Globulin Ratio 0.6 0.6 D-Dimer (Mara) 3.96 ug/mlFEU Magnesium Level 2.1 mg/dL Ferritin 456 ng/mL Lactate Dehydrogenase 391 U/L Creatine Kinase 114 U/L HR-Wam-C-Type Natriuretic Peptide 897 pg/mL PE: GEN: in COVID isolation - visual exam done LUNGS: NC, seems more comfortable today HEART: RR ABD: stable distention NEURO/PSYCH: A & O 3 A/P: COVID-19 pneumonia Pancytopenia, elevated bili and AST (better) Cirrhosis, h/o variceal bleeding and ascites, TIPS occluded H/o collagenous colitis - no diarrhea currently -- Paracentesis PRN - last on 11/01 and 10/18. Justicifation of Admission Dx: Justifications for Admission: Justification of Admission Dx: Comment: DAV LUNDY Nov 09, 2020 10:20
[2020-11-09 11:00] VITALS: BP 152/70
--- NOTE | 2020-11-09 11:14 | PDOC ---
[employer] PROGRESS NOTE Date of Service DOS: DATE: 11/09/20 TIME: 11:01 Chief Complaint Chief Complaint A/P: Acute respiratory failure with Hypoxia - related to COVID 19 pneumonia, will also treat for likely gram negative pneumonia as well given his cirrhosis and risk factors.. Steroids and remdesivir ordered. Wean O2 as tolerated COVID-19 - with pneumonia, have d/w patient risks of remdesivir in liver disease, he wishes to have treatment Cirrhosis - with ascites. S/p TIPS for variceal bleeding in 2013. GI following. Will continue diuretics and monitor. EGD and colonoscopy w/ Dr. Hunter in 06/2020 - path w/ collagenous colitis. Hyperammonemia - likely related to cirrhosis Elevated troponin - likely demand ischemia, will trend Anemia- likely of chronic disease. will trend Leukopenia - likely related to liver disease and covid 19, will monitor HTN HLD DM -on Toujeo and sliding scale, will convert to Lantus and increase sliding sca le while he is on dexamethasone. Prostate cancer - s/p radiation therapy, in remission OA - stable Gout - not in flare currently FEN - ADA diet PPX - lovenox, will watch platelets FULL CODE Dispo - inpatient telemetry monitoring in COVID 19 isolation unit History of Present Illness History of Present Illness Mr Orourke is a 75-year-old male w/ PMHx prostate ca (s/p radx 2014), depression, DM2, Cirrhosis who presents to [place] ED with report of shortness of breath that occurred upon waking day of admission when getting up to go to the restroom. Patient was recently diagnosed with COVID-19 on 11/02/2020. Has cirrhosis with regular paracentesis, last paracentesis was approximately 1 week ago at [facility]. Patient reports his abdomen does not feel overly distended and does not think he needs paracentesis at this time. Reports subjective fever and chills. Denies trauma. Very short of breath. H/o cirrhosis reportedly from fatty liver and alcohol. H/o variceal bleeding and ascites/paracentesis in 2013. S/p TIPS then - no issues w/ bleeding or ascites since then until 08/2020 - TIPS thrombosed (see US here 09/17, also reports MRI by urologist in showed non-functioning TIPS). Paracentesis x 4 since then, last 7.4L on 11/01. Labs at [facility] with WBC 3.4, Hb 10.8, platelets 77, NA 136, K3.9, BUN 20, CR 1, glucose 137, magnesium 1.6, bilirubin 2.2, AST 60, ALT 45, INR 1.4, troponin 0 0.066, BNP 2592, albumin 2.6, ammonia 62, lactic acid 2.3, D-dimer 7.41 CTPA with no pulmonary embolism, bilateral diffuse groundglass opacities, cirrhosis with TIPS moderate ascites. EKG appears NSR at 88 bpm, some baseline artifact noted primarily to aVL, NO ST elevation, LAFB, QRS 86ms, QT/QTc 396/483ms Patient was found to be hypoxic upon EMS arrival. Improved with supplemental O2. Patient transferred to [place] for further care due to lack of GI resources at [place]. Seen bedside with O2 saturations 91% on 3 L nasal cannula O2. Patient notes that he feels terrible. He is requested Covid treatment advised remdesivir and liver disease has not been well studied. He wishes to move forward with treatment. 11/09: Patient afebrile, breathing on 2 L nasal cannula. Remdesivir day 2/. WBC 1.6 yesterday, WBC 1.3 today. This could be seen in viral infections or hypersplenism secondary to cirrhosis. Continue to monitor. Continue Rocephin, doxy, steroids, and supportive care. Vitals/I&O Vitals/I&O: Vital Signs Date Time Temp Pulse Resp B/P (MAP) Pulse Ox O2 Delivery O2 Flow Rate FiO2 11/09/20 08:48 62 153/70 11/09/20 07:00 96.1 18 91 Nasal Cannula 2.0 96.1 I & O 11/08/20 11/08/20 11/09/20 15:00 23:00 07:00 Intake Total 180 ml 180 ml Balance 180 ml 180 ml Physical Exam General: Alert, Oriented X3, mild distress Heart: Regular rate Lungs: Clear, Other Abdomen: Normal bowel sounds, Soft, Other (Fluid wave) Extremities: No clubbing, No cyanosis, No tenderness/swelling Skin: No rashes, No breakdown, No significant lesion Labs Labs: Laboratory Tests Test 11/08/20 11:58 11/08/20 13:08 11/09/20 04:30 Glucose (Fingerstick) 208 mg/dL (70-99) White Blood Count 1.6 x10^3/uL (4.0-11.0) 1.3 x10^3/uL (4.0-11.0) Red Blood Count 3.42 x10^6/uL (4.30-5.70) 3.10 x10^6/uL (4.30-5.70) Hemoglobin 11.0 g/dL (13.0-17.5) 9.9 g/dL (13.0-17.5) Hematocrit 32.8 % (39.0-53.0) 29.2 % (39.0-53.0) Mean Corpuscular Volume 96 fL (79-100) 94 fL (79-100) Mean Corpuscular Hemoglobin 32 pg (25-35) 32 pg (25-35) Mean Corpuscular Hemoglobin Concent 34 g/dL (31-37) 34 g/dL (31-37) Red Cell Distribution Width 14.8 % (11.5-14.5) 14.8 % (11.5-14.5) Platelet Count 57 x10^3/uL (140-400) 61 x10^3/uL (140-400) Neutrophils (%) (Auto) 85 % (31-73) 78 % (31-73) Lymphocytes (%) (Auto) 8 % (24-48) 10 % (24-48) Monocytes (%) (Auto) 7 % (0-9) 12 % (0-9) Eosinophils (%) (Auto) 0 % (0-3) 0 % (0-3) Basophils (%) (Auto) 0 % (0-3) 0 % (0-3) Neutrophils # (Auto) 1.3 x10^3/uL (1.8-7.7) 1.0 x10^3/uL (1.8-7.7) Lymphocytes # (Auto) 0.1 x10^3/uL (1.0-4.8) 0.1 x10^3/uL (1.0-4.8) Monocytes # (Auto) 0.1 x10^3/uL (0.0-1.1) 0.2 x10^3/uL (0.0-1.1) Eosinophils # (Auto) 0.0 x10^3/uL (0.0-0.7) 0.0 x10^3/uL (0.0-0.7) Basophils # (Auto) 0.0 x10^3/uL (0.0-0.2) 0.0 x10^3/uL (0.0-0.2) Segmented Neutrophils % 81 % (35-66) Band Neutrophils % 14 % (0-9) Lymphocytes % 2 % (24-48) Monocytes % 3 % (0-10) Platelet Estimate Decreased (ADEQUATE) Sodium Level 134 mmol/L (136-145) 139 mmol/L (136-145) Potassium Level 5.0 mmol/L (3.5-5.1) 4.3 mmol/L (3.5-5.1) Chloride Level 100 mmol/L (98-107) 104 mmol/L (98-107) Carbon Dioxide Level 27 mmol/L (21-32) 26 mmol/L (21-32) Anion Gap 7 (6-14) 9 (6-14) Blood Urea Nitrogen 21 mg/dL (8-26) 26 mg/dL (8-26) Creatinine 1.3 mg/dL (0.7-1.3) 1.1 mg/dL (0.7-1.3) Estimated GFR (Cockcroft-Gault) 53.8 65.3 BUN/Creatinine Ratio 16 (6-20) 24 (6-20) Glucose Level 273 mg/dL (70-99) 248 mg/dL (70-99) Calcium Level 8.4 mg/dL (8.5-10.1) 7.9 mg/dL (8.5-10.1) Total Bilirubin 2.4 mg/dL (0.2-1.0) 1.3 mg/dL (0.2-1.0) Aspartate Amino Transf (AST/SGOT) 56 U/L (15-37) 44 U/L (15-37) Alanine Aminotransferase (ALT/SGPT) 44 U/L (16-63) 37 U/L (16-63) Alkaline Phosphatase 83 U/L (46-116) 75 U/L (46-116) Total Protein 6.9 g/dL (6.4-8.2) 6.1 g/dL (6.4-8.2) Albumin 2.6 g/dL (3.4-5.0) 2.2 g/dL (3.4-5.0) Albumin/Globulin Ratio 0.6 (1.0-1.7) 0.6 (1.0-1.7) D-Dimer (Mara) 3.96 ug/mlFEU (0.00-0.50) Magnesium Level 2.1 mg/dL (1.8-2.4) Ferritin 456 ng/mL (26-388) Lactate Dehydrogenase 391 U/L (85-227) Creatine Kinase 114 U/L (39-308) [id number]-[id number]-Type Natriuretic Peptide 897 pg/mL (0-449) Comment Review of Relevant I have reviewed the following items amador (where applicable) has been applied. Medications: Current Medications Medications (Trade) Dose Ordered Sig/Gaby Route PRN Reason Start Time Stop Time Status Last Admin Dose Admin Furosemide (Lasix) 40 mg DAILY PO 11/09/20 09:00 11/09/20 08:49 Dexamethasone Sodium Phosphate (Decadron) 6 mg DAILY IVP 11/09/20 09:00 11/09/20 08:49 Dexamethasone Sodium Phosphate (Decadron) 6 mg 1X ONCE IVP 11/08/20 12:30 11/08/20 12:35 DC 11/08/20 13:10 Ceftriaxone Sodium (Rocephin) 1 gm Q24H IVP 11/08/20 13:00 11/12/20 13:01 11/08/20 13:11 Doxycycline Hyclate 100 mg/ Dextrose 100 ml @ 50 mls/hr Q12HR IV 11/08/20 21:00 11/13/20 20:59 11/09/20 08:48 Enoxaparin Sodium (Lovenox 40mg Syringe) 40 mg Q24H SQ 11/08/20 16:00 11/08/20 15:52 Duloxetine HCl (Cymbalta) 30 mg DAILY PO 11/09/20 09:00 11/09/20 08:48 Insulin Human Lispro (HumaLOG) 8 units TIDWMEALS SQ 11/08/20 17:00 11/09/20 08:54 Insulin Glargine (Lantus Syringe) 30 unit QHS SQ 11/08/20 21:00 11/08/20 20:46 Insulin Human Lispro (HumaLOG) 0-9 UNITS TIDWMEALS SQ 11/08/20 17:00 11/09/20 08:54 Remdesivir 200 mg/ Sodium Chloride 210 ml @ 210 mls/hr 1X ONCE IV 11/08/20 15:00 11/08/20 15:59 DC 11/08/20 15:51 Zinc Sulfate (Orazinc) 220 mg DAILY PO 11/08/20 14:45 11/09/20 08:48 Thiamine Mononitrate (Vitamin B-1) 100 mg DAILY PO 11/08/20 14:45 11/09/20 08:48 Propranolol HCl (Inderal La) 80 mg DAILY PO 11/08/20 14:45 11/09/20 08:48 Albuterol Sulfate (Ventolin Hfa) 2 puff PRN Q4HRS PRN INH SHORTNESS OF BREATH 11/08/20 15:15 11/08/20 22:55 Insulin Human Lispro (HumaLOG) 13 units 1X ONCE SQ 11/08/20 21:45 11/08/20 21:53 DC 11/08/20 21:51 Justifications for Admission Other Justification Acute respiratory failure with hypoxia, COVID-19 pneumonia DASH ROBLES MD Nov 09, 2020 11:14
[2020-11-09] MEDS: cefTRIAXone IV Push 1 GM VIAL. IVP SCH (12:02)
[2020-11-09] MEDS: ONDANSETRON PF 4 MG/2 ML VIAL. IVP PRN ×2 (12:17→20:13)
[2020-11-09 15:00] VITALS: BP 144/71
[2020-11-09] MEDS: REMDESIVIR 100mg in NORMAL SALINE 250ML X 4 DAYS IV SCH (15:13)
[2020-11-09] MEDS: ENOXAPARIN 40 MG/0.4 ML SYRINGE. SQ SCH (15:14)
[2020-11-09 19:51] VITALS: BP 137/68
[2020-11-09] MEDS: FAMOTIDINE 20 MG TABLET. PO SCH (20:12)
[2020-11-09] MEDS: INSULIN GLARGINE SYRINGE. SQ SCH (20:45)
[2020-11-09 23:26] VITALS: BP 141/81
[2020-11-10 03:52] VITALS: BP 153/81
[2020-11-10 05:38] LABS: CALCIUM 8.5 mg/dL (8.5-10.1); CREATININE 0.9 mg/dL (0.7-1.3); GFR 82.3; POTASSIUM 4.2 mmol/L (3.5-5.1)
[2020-11-10 07:00] VITALS: BP 159/82
[2020-11-10] MEDS: PROPRANOLOL ER 80 MG CAP.ER.24H. PO SCH (08:52)
[2020-11-10] MEDS: DULoxetine HCL 30 MG CAPSULE.DR PO SCH (08:53)
[2020-11-10] MEDS: ZINC SULFATE 220 MG CAPSULE. PO SCH (08:53)
[2020-11-10] MEDS: THIAMINE 100 MG TABLET. PO SCH (08:53)
[2020-11-10] MEDS: FUROSEMIDE 40 MG TABLET. PO SCH (08:53)
[2020-11-10] MEDS: DEXAMETHASONE SOD PHOS 4 MG/ML VIAL IVP SCH (08:54)
[2020-11-10] MEDS: DOXYCYCLINE HYCLATE 100 MG in IV DEXTROSE 5% 100ML 100 ML IV SCH ×2 (08:57→20:57)
[2020-11-10] MEDS: INSULIN LISPRO 300 UNITS/3 ML VIAL. SQ SCH ×6 (09:09→17:35)
[2020-11-10 11:00] VITALS: BP 180/86
[2020-11-10 11:51] LABS: ALBUMIN 2.4 g/dL (3.4-5.0); BASO % 0 % (0-3); DIRECT BILIRUBIN 0.5 mg/dL (0.0-0.2); EOS % 0 % (0-3); HEMATOCRIT 31.3 % (39.0-53.0); HEMOGLOBIN 10.3 g/dL (13.0-17.5); LYMPH # 0.2 x10^3/uL (1.0-4.8); LYMPH % 5 % (24-48); MEAN CORPUSCULAR HEMOGLOBIN 32 pg (25-35); MEAN CORPUSCULAR HGB CONC 33 g/dL (31-37); MEAN CORPUSCULAR VOLUME 96 fL (79-100); MONO # 0.3 x10^3/uL (0.0-1.1); MONO % 9 % (0-9); NEUT # 3.2 x10^3/uL (1.8-7.7); NEUT % 86 % (31-73); PLATELET COUNT 87 x10^3/uL (140-400); RED BLOOD COUNT 3.26 x10^6/uL (4.30-5.70); RED CELL DISTRIBUTION WIDTH 15.1 % (11.5-14.5); TOTAL BILIRUBIN 1.3 mg/dL (0.2-1.0); TOTAL PROTEIN 6.5 g/dL (6.4-8.2); WHITE BLOOD COUNT 3.7 x10^3/uL (4.0-11.0)
[2020-11-10] MEDS: ALBUTEROL SULFATE 8GM INHALER. INH PRN (12:18)
[2020-11-10 15:00] VITALS: BP 177/85
[2020-11-10] MEDS: REMDESIVIR 100mg in NORMAL SALINE 250ML X 4 DAYS IV SCH (17:24)
[2020-11-10] MEDS: ENOXAPARIN 40 MG/0.4 ML SYRINGE. SQ SCH (17:24)
[2020-11-10] MEDS: cefTRIAXone IV Push 1 GM VIAL. IVP SCH (17:24)
[2020-11-10 19:00] VITALS: BP 168/84
--- NOTE | 2020-11-10 20:13 | PDOC ---
[employer] PROGRESS NOTE Date of Service DOS: DATE: 11/10/20 TIME: 20:12 Chief Complaint Chief Complaint A/P: Acute respiratory failure with Hypoxia - related to COVID 19 pneumonia, will also treat for likely gram negative pneumonia as well given his cirrhosis and risk factors.. Steroids and remdesivir ordered. Wean O2 as tolerated COVID-19 - with pneumonia, have d/w patient risks of remdesivir in liver disease, he wishes to have treatment Cirrhosis - with ascites. S/p TIPS for variceal bleeding in 2013. GI following. Will continue diuretics and monitor. EGD and colonoscopy w/ Dr. Hunter in 06/2020 - path w/ collagenous colitis. Hyperammonemia - likely related to cirrhosis Elevated troponin - likely demand ischemia, will trend Anemia- likely of chronic disease. will trend Leukopenia - likely related to liver disease and covid 19, will monitor HTN HLD DM -on Toujeo and sliding scale, will convert to Lantus and increase sliding sca le while he is on dexamethasone. Prostate cancer - s/p radiation therapy, in remission OA - stable Gout - not in flare currently FEN - ADA diet PPX - lovenox, will watch platelets FULL CODE Dispo - inpatient telemetry monitoring in COVID 19 isolation unit History of Present Illness History of Present Illness Mr Orourke is a 75-year-old male w/ PMHx prostate ca (s/p radx 2014), depression, DM2, Cirrhosis who presents to [place] ED with report of shortness of breath that occurred upon waking day of admission when getting up to go to the restroom. Patient was recently diagnosed with COVID-19 on 11/02/2020. Has cirrhosis with regular paracentesis, last paracentesis was approximately 1 week ago at [facility]. Patient reports his abdomen does not feel overly distended and does not think he needs paracentesis at this time. Reports subjective fever and chills. Denies trauma. Very short of breath. H/o cirrhosis reportedly from fatty liver and alcohol. H/o variceal bleeding and ascites/paracentesis in 2013. S/p TIPS then - no issues w/ bleeding or ascites since then until 08/2020 - TIPS thrombosed (see US here 09/17, also reports MRI by urologist in showed non-functioning TIPS). Paracentesis x 4 since then, last 7.4L on 11/01. Labs at [facility] with WBC 3.4, Hb 10.8, platelets 77, NA 136, K3.9, BUN 20, CR 1, glucose 137, magnesium 1.6, bilirubin 2.2, AST 60, ALT 45, INR 1.4, troponin 0 0.066, BNP 2592, albumin 2.6, ammonia 62, lactic acid 2.3, D-dimer 7.41 CTPA with no pulmonary embolism, bilateral diffuse groundglass opacities, cirrhosis with TIPS moderate ascites. EKG appears NSR at 88 bpm, some baseline artifact noted primarily to aVL, NO ST elevation, LAFB, QRS 86ms, QT/QTc 396/483ms Patient was found to be hypoxic upon EMS arrival. Improved with supplemental O2. Patient transferred to [place] for further care due to lack of GI resources at [place]. Seen bedside with O2 saturations 91% on 3 L nasal cannula O2. Patient notes that he feels terrible. He is requested Covid treatment advised remdesivir and liver disease has not been well studied. He wishes to move forward with treatment. 11/09: Patient afebrile, breathing on 2 L nasal cannula. Remdesivir day 2/. WBC 1.6 yesterday, WBC 1.3 today. This could be seen in viral infections or hypersplenism secondary to cirrhosis. Continuetomonitor. Continue Rocephin, doxy, steroids, and supportive care. 11/10: Afebrile, breathing 2 L nasal cannula. WBC slightly improved. Liver enzymes are not significantly elevated, will continue to monitor. Continue treatment with remdesivir, steroids, antibiotics. Vitals/I&O Vitals/I&O: Vital Signs Date Time Temp Pulse Resp B/P (MAP) Pulse Ox O2 Delivery O2 Flow Rate FiO2 11/10/20 15:00 97.9 58 18 177/85 (115) 93 Nasal Cannula 6.0 97.9 I & O 11/09/20 11/09/20 11/10/20 15:00 23:00 07:00 Intake Total 400 ml 200 ml 120 ml Output Total 550 ml Balance 400 ml 200 ml -430 ml Physical Exam General: Alert, Oriented X3, mild distress Heart: Regular rate Lungs: Clear, Other Abdomen: Normal bowel sounds, Soft, Other (Fluid wave) Extremities: No clubbing, No cyanosis, No tenderness/swelling Skin: No rashes, No breakdown, No significant lesion Labs Labs: Laboratory Tests Test 11/10/20 03:30 White Blood Count 3.7 x10^3/uL (4.0-11.0) Red Blood Count 3.26 x10^6/uL (4.30-5.70) Hemoglobin 10.3 g/dL (13.0-17.5) Hematocrit 31.3 % (39.0-53.0) Mean Corpuscular Volume 96 fL (79-100) Mean Corpuscular Hemoglobin 32 pg (25-35) Mean Corpuscular Hemoglobin Concent 33 g/dL (31-37) Red Cell Distribution Width 15.1 % (11.5-14.5) Platelet Count 87 x10^3/uL (140-400) Neutrophils (%) (Auto) 86 % (31-73) Lymphocytes (%) (Auto) 5 % (24-48) Monocytes (%) (Auto) 9 % (0-9) Eosinophils (%) (Auto) 0 % (0-3) Basophils (%) (Auto) 0 % (0-3) Neutrophils # (Auto) 3.2 x10^3/uL (1.8-7.7) Lymphocytes # (Auto) 0.2 x10^3/uL (1.0-4.8) Monocytes # (Auto) 0.3 x10^3/uL (0.0-1.1) Eosinophils # (Auto) 0.0 x10^3/uL (0.0-0.7) Basophils # (Auto) 0.0 x10^3/uL (0.0-0.2) Sodium Level 140 mmol/L (136-145) Potassium Level 4.2 mmol/L (3.5-5.1) Chloride Level 105 mmol/L (98-107) Carbon Dioxide Level 28 mmol/L (21-32) Anion Gap 7 (6-14) Blood Urea Nitrogen 24 mg/dL (8-26) Creatinine 0.9 mg/dL (0.7-1.3) Estimated GFR (Cockcroft-Gault) 82.3 Glucose Level 193 mg/dL (70-99) Calcium Level 8.5 mg/dL (8.5-10.1) Total Bilirubin 1.3 mg/dL (0.2-1.0) Direct Bilirubin 0.5 mg/dL (0.0-0.2) Aspartate Amino Transf (AST/SGOT) 47 U/L (15-37) Alanine Aminotransferase (ALT/SGPT) 36 U/L (16-63) Alkaline Phosphatase 76 U/L (46-116) Total Protein 6.5 g/dL (6.4-8.2) Albumin 2.4 g/dL (3.4-5.0) Comment Review of Relevant I have reviewed the following items amador (where applicable) has been applied. Medications: Current Medications Medications (Trade) Dose Ordered Sig/Gaby Route PRN Reason Start Time Stop Time Status Last Admin Dose Admin Famotidine (Pepcid) 20 mg QHS PO 11/09/20 21:00 11/09/20 20:12 Justifications for Admission Other Justification Acute respiratory failure with hypoxia, COVID-19 pneumonia DASH ROBLES MD Nov 10, 2020 20:13
[2020-11-10] MEDS: FAMOTIDINE 20 MG TABLET. PO SCH (20:57)
--- NOTE | 2020-11-10 21:00 | NUR ---
FSBS result per pt was 308, night time sched Lantus 30 units given. Will continue to monitor patient.
[2020-11-10] MEDS: INSULIN GLARGINE SYRINGE. SQ SCH (21:33)
[2020-11-10] MEDS ORDERED: LOPERAMIDE 2 MG CAPSULE PO PRN (21:45)
[2020-11-10 23:00] VITALS: BP 190/86
[2020-11-11] VITALS (7 sets, daily range): BP systolic 154–182; BP diastolic 79–88
[2020-11-11] MEDS ORDERED: hydrALAZINE 20 MG/ML VIAL. IVP PRN (00:15)
[2020-11-11 05:36] LABS: BASO % 0 % (0-3); EOS % 0 % (0-3); HEMATOCRIT 30.6 % (39.0-53.0); HEMOGLOBIN 10.2 g/dL (13.0-17.5); LYMPH # 0.1 x10^3/uL (1.0-4.8); LYMPH % 4 % (24-48); MEAN CORPUSCULAR HEMOGLOBIN 32 pg (25-35); MEAN CORPUSCULAR HGB CONC 33 g/dL (31-37); MEAN CORPUSCULAR VOLUME 95 fL (79-100); MONO # 0.3 x10^3/uL (0.0-1.1); MONO % 10 % (0-9); NEUT # 2.3 x10^3/uL (1.8-7.7); NEUT % 86 % (31-73); PLATELET COUNT 70 x10^3/uL (140-400); RED BLOOD COUNT 3.21 x10^6/uL (4.30-5.70); RED CELL DISTRIBUTION WIDTH 15.2 % (11.5-14.5); WHITE BLOOD COUNT 2.7 x10^3/uL (4.0-11.0)
[2020-11-11 05:48] LABS: CALCIUM 8.5 mg/dL (8.5-10.1); CREATININE 0.9 mg/dL (0.7-1.3); GFR 82.3; POTASSIUM 4.2 mmol/L (3.5-5.1)
[2020-11-11 05:50] LABS: ALBUMIN 2.4 g/dL (3.4-5.0); DIRECT BILIRUBIN 0.5 mg/dL (0.0-0.2); TOTAL BILIRUBIN 1.3 mg/dL (0.2-1.0); TOTAL PROTEIN 6.3 g/dL (6.4-8.2)
[2020-11-11 06:36] LABS: MAGNESIUM 1.9 mg/dL (1.8-2.4)
[2020-11-11] MEDS: DOXYCYCLINE HYCLATE 100 MG in IV DEXTROSE 5% 100ML 100 ML IV SCH ×2 (08:28→20:28)
[2020-11-11] MEDS: THIAMINE 100 MG TABLET. PO SCH (08:29)
[2020-11-11] MEDS: ZINC SULFATE 220 MG CAPSULE. PO SCH (08:29)
[2020-11-11] MEDS: DEXAMETHASONE SOD PHOS 4 MG/ML VIAL IVP SCH (08:29)
[2020-11-11] MEDS: FUROSEMIDE 40 MG TABLET. PO SCH (08:29)
[2020-11-11] MEDS: PROPRANOLOL ER 80 MG CAP.ER.24H. PO SCH (08:29)
[2020-11-11] MEDS: DULoxetine HCL 30 MG CAPSULE.DR PO SCH (08:29)
[2020-11-11] MEDS: INSULIN LISPRO 300 UNITS/3 ML VIAL. SQ SCH ×6 (08:32→17:42)
--- NOTE | 2020-11-11 09:20 | PDOC ---
[employer] PROGRESS NOTE Date of Service DOS: DATE: 11/11/20 TIME: 09:19 Chief Complaint Chief Complaint A/P: Acute respiratory failure with Hypoxia - related to COVID 19 pneumonia, will also treat for likely gram negative pneumonia as well given his cirrhosis and risk factors.. Steroids and remdesivir ordered. Wean O2 as tolerated COVID-19 - with pneumonia, have d/w patient risks of remdesivir in liver disease, he wishes to have treatment Cirrhosis - with ascites. S/p TIPS for variceal bleeding in 2013. GI following. Will continue diuretics and monitor. EGD and colonoscopy w/ Dr. Hunter in 06/2020 - path w/ collagenous colitis. Hyperammonemia - likely related to cirrhosis Elevated troponin - likely demand ischemia, will trend Anemia- likely of chronic disease. will trend Leukopenia - likely related to liver disease and covid 19, will monitor HTN HLD DM -on Toujeo and sliding scale, will convert to Lantus and increase sliding sca le while he is on dexamethasone. Prostate cancer - s/p radiation therapy, in remission OA - stable Gout - not in flare currently FEN - ADA diet PPX - lovenox, will watch platelets FULL CODE Dispo - inpatient telemetry monitoring in COVID 19 isolation unit History of Present Illness History of Present Illness Mr Orourke is a 75-year-old male w/ PMHx prostate ca (s/p radx 2014), depression, DM2, Cirrhosis who presents to [place] ED with report of shortness of breath that occurred upon waking day of admission when getting up to go to the restroom. Patient was recently diagnosed with COVID-19 on 11/02/2020. Has cirrhosis with regular paracentesis, last paracentesis was approximately 1 week ago at [facility]. Patient reports his abdomen does not feel overly distended and does not think he needs paracentesis at this time. Reports subjective fever and chills. Denies trauma. Very short of breath. H/o cirrhosis reportedly from fatty liver and alcohol. H/o variceal bleeding and ascites/paracentesis in 2013. S/p TIPS then - no issues w/ bleeding or ascites since then until 08/2020 - TIPS thrombosed (see US here 09/17, also reports MRI by urologist in showed non-functioning TIPS). Paracentesis x 4 since then, last 7.4L on 11/01. Labs at [facility] with WBC 3.4, Hb 10.8, platelets 77, NA 136, K3.9, BUN 20, CR 1, glucose 137, magnesium 1.6, bilirubin 2.2, AST 60, ALT 45, INR 1.4, troponin 0 0.066, BNP 2592, albumin 2.6, ammonia 62, lactic acid 2.3, D-dimer 7.41 CTPA with no pulmonary embolism, bilateral diffuse groundglass opacities, cirrhosis with TIPS moderate ascites. EKG appears NSR at 88 bpm, some baseline artifact noted primarily to aVL, NO ST elevation, LAFB, QRS 86ms, QT/QTc 396/483ms Patient was found to be hypoxic upon EMS arrival. Improved with supplemental O2. Patient transferred to [place] for further care due to lack of GI resources at [place]. Seen bedside with O2 saturations 91% on 3 L nasal cannula O2. Patient notes that he feels terrible. He is requested Covid treatment advised remdesivir and liver disease has not been well studied. He wishes to move forward with treatment. 11/09: Patient afebrile, breathing on 2 L nasal cannula. Remdesivir day 2/. WBC 1.6 yesterday, WBC 1.3 today. This could be seen in viral infections or hypersplenism secondary to cirrhosis. Continuetomonitor. Continue Rocephin, doxy, steroids, and supportive care. 11/10: Afebrile, breathing 2 L nasal cannula. WBC slightly improved. Liver enzymes are not significantly elevated, will continue to monitor. Continue treatment with remdesivir, steroids, antibiotics. 11/11: Patient breathing on 6 L nasal cannula. Afebrile. LFTs good. Continue remdesivir, steroids, antibiotics. Vitals/I&O Vitals/I&O: Vital Signs Date Time Temp Pulse Resp B/P (MAP) Pulse Ox O2 Delivery O2 Flow Rate FiO2 11/11/20 08:29 62 174/86 11/11/20 07:00 96.1 24 94 Nasal Cannula 6.0 96.1 I & O 11/10/20 11/10/20 11/11/20 15:00 23:00 07:00 Intake Total 120 ml 0 ml Output Total 250 ml Balance -130 ml 0 ml Physical Exam General: Alert, Oriented X3, mild distress Heart: Regular rate Lungs: Clear, Other Abdomen: Normal bowel sounds, Soft, Other (Fluid wave) Extremities: No clubbing, No cyanosis, No tenderness/swelling Skin: No rashes, No breakdown, No significant lesion Labs Labs: Laboratory Tests Test 11/11/20 04:30 11/11/20 05:00 [id number]-[id number]-Type Natriuretic Peptide 2865 pg/mL (0-449) White Blood Count 2.7 x10^3/uL (4.0-11.0) Red Blood Count 3.21 x10^6/uL (4.30-5.70) Hemoglobin 10.2 g/dL (13.0-17.5) Hematocrit 30.6 % (39.0-53.0) Mean Corpuscular Volume 95 fL (79-100) Mean Corpuscular Hemoglobin 32 pg (25-35) Mean Corpuscular Hemoglobin Concent 33 g/dL (31-37) Red Cell Distribution Width 15.2 % (11.5-14.5) Platelet Count 70 x10^3/uL (140-400) Neutrophils (%) (Auto) 86 % (31-73) Lymphocytes (%) (Auto) 4 % (24-48) Monocytes (%) (Auto) 10 % (0-9) Eosinophils (%) (Auto) 0 % (0-3) Basophils (%) (Auto) 0 % (0-3) Neutrophils # (Auto) 2.3 x10^3/uL (1.8-7.7) Lymphocytes # (Auto) 0.1 x10^3/uL (1.0-4.8) Monocytes # (Auto) 0.3 x10^3/uL (0.0-1.1) Eosinophils # (Auto) 0.0 x10^3/uL (0.0-0.7) Basophils # (Auto) 0.0 x10^3/uL (0.0-0.2) D-Dimer (Mara) 8.55 ug/mlFEU (0.00-0.50) Sodium Level 140 mmol/L (136-145) Potassium Level 4.2 mmol/L (3.5-5.1) Chloride Level 105 mmol/L (98-107) Carbon Dioxide Level 32 mmol/L (21-32) Anion Gap 3 (6-14) Blood Urea Nitrogen 24 mg/dL (8-26) Creatinine 0.9 mg/dL (0.7-1.3) Estimated GFR (Cockcroft-Gault) 82.3 Glucose Level 228 mg/dL (70-99) Calcium Level 8.5 mg/dL (8.5-10.1) Magnesium Level 1.9 mg/dL (1.8-2.4) Ferritin 542 ng/mL (26-388) Total Bilirubin 1.3 mg/dL (0.2-1.0) Direct Bilirubin 0.5 mg/dL (0.0-0.2) Aspartate Amino Transf (AST/SGOT) 44 U/L (15-37) Alanine Aminotransferase (ALT/SGPT) 40 U/L (16-63) Alkaline Phosphatase 81 U/L (46-116) Lactate Dehydrogenase 518 U/L (85-227) Creatine Kinase 90 U/L (39-308) Total Protein 6.3 g/dL (6.4-8.2) Albumin 2.4 g/dL (3.4-5.0) Comment Review of Relevant I have reviewed the following items amador (where applicable) has been applied. Medications: Current Medications Medications (Trade) Dose Ordered Sig/Gaby Route PRN Reason Start Time Stop Time Status Last Admin Dose Admin Loperamide HCl (Imodium) 2 mg PRN Q15MIN PRN PO DIARRHEA 11/10/20 21:45 11/10/20 22:34 Justifications for Admission Other Justification Acute respiratory failure with hypoxia, COVID-19 pneumonia DASH ROBLES MD Nov 11, 2020 09:20
[2020-11-11] MEDS: cefTRIAXone IV Push 1 GM VIAL. IVP SCH (12:38)
[2020-11-11] MEDS: REMDESIVIR 100mg in NORMAL SALINE 250ML X 4 DAYS IV SCH (14:23)
[2020-11-11] MEDS: ENOXAPARIN 40 MG/0.4 ML SYRINGE. SQ SCH (17:40)
[2020-11-11] MEDS: FAMOTIDINE 20 MG TABLET. PO SCH (20:27)
[2020-11-11] MEDS: INSULIN GLARGINE SYRINGE. SQ SCH (21:17)
[2020-11-12 02:16] VITALS: BP 171/88
[2020-11-12 07:17] LABS: ALBUMIN 2.4 g/dL (3.4-5.0); DIRECT BILIRUBIN 0.5 mg/dL (0.0-0.2); TOTAL BILIRUBIN 1.5 mg/dL (0.2-1.0); TOTAL PROTEIN 6.5 g/dL (6.4-8.2)
[2020-11-12 07:20] LABS: BASO % 0 % (0-3); EOS % 0 % (0-3); HEMATOCRIT 31.8 % (39.0-53.0); HEMOGLOBIN 10.5 g/dL (13.0-17.5); LYMPH # 0.1 x10^3/uL (1.0-4.8); LYMPH % 3 % (24-48); MEAN CORPUSCULAR HEMOGLOBIN 32 pg (25-35); MEAN CORPUSCULAR HGB CONC 33 g/dL (31-37); MEAN CORPUSCULAR VOLUME 96 fL (79-100); MONO # 0.4 x10^3/uL (0.0-1.1); MONO % 10 % (0-9); NEUT # 3.3 x10^3/uL (1.8-7.7); NEUT % 87 % (31-73); PLATELET COUNT 68 x10^3/uL (140-400); RED BLOOD COUNT 3.33 x10^6/uL (4.30-5.70); RED CELL DISTRIBUTION WIDTH 14.9 % (11.5-14.5); WHITE BLOOD COUNT 3.9 x10^3/uL (4.0-11.0)
[2020-11-12 07:31] VITALS: BP 180/92
[2020-11-12] MEDS: INSULIN LISPRO 300 UNITS/3 ML VIAL. SQ SCH ×6 (08:00→17:00)
[2020-11-12] MEDS: DEXAMETHASONE SOD PHOS 4 MG/ML VIAL IVP SCH (08:17)
[2020-11-12] MEDS: ZINC SULFATE 220 MG CAPSULE. PO SCH (08:17)
[2020-11-12] MEDS: PROPRANOLOL ER 80 MG CAP.ER.24H. PO SCH (08:18)
[2020-11-12] MEDS: ALBUTEROL SULFATE 8GM INHALER. INH PRN (08:18)
[2020-11-12] MEDS: THIAMINE 100 MG TABLET. PO SCH (08:18)
[2020-11-12] MEDS: DULoxetine HCL 30 MG CAPSULE.DR PO SCH (08:18)
[2020-11-12] MEDS: FUROSEMIDE 40 MG TABLET. PO SCH (08:18)
[2020-11-12] MEDS: DOXYCYCLINE HYCLATE 100 MG in IV DEXTROSE 5% 100ML 100 ML IV SCH ×2 (08:19→20:29)
--- NOTE | 2020-11-12 10:29 | PDOC ---
PROGRESS NOTES Date of Service: DATE: 11/12/20 TIME: 10:29 Chief Complaint Chief Complaint impression Acute respiratory failure with Hypoxia - related to COVID 19 pneumonia, will also treat for likely gram negative pneumonia as well given his cirrhosis and risk factors.. Steroids and remdesivir ordered. Wean O2 as tolerated COVID-19 - with pneumonia, have d/w patient risks of remdesivir in liver disease, he wishes to have treatment, WORSENING HYPOXIA Cirrhosis - with ascites. S/p TIPS for variceal bleeding in 2013. GI following. Will continue diuretics and monitor. EGD and colonoscopy w/ Dr. Hunter in 06/2020 - path w/ collagenous colitis. Hyperammonemia - likely related to cirrhosis Elevated troponin - likely demand ischemia, will trend Anemia- likely of chronic disease. will trend Leukopenia - likely related to liver disease and covid 19, will monitor HTN HLD DM -on Toujeo and sliding scale, will convert to Lantus and increase sliding scale while he is on dexamethasone. Prostate cancer - s/p radiation therapy, in remission OA - stable Gout - not in flare currently Pancytopenia, elevated bili and AST Cirrhosis, h/o variceal bleeding and ascites, TIPS occluded collagenous colitis - takes Imodium PRN at home PLAN FEN - ADA diet PPX - lovenox, will watch platelets DNR OF 11-12 D/W DR VELASCO Dispmaddie - inpatient telemetry monitoring in COVID 19 isolation unit paracentesis today 11-12 39 MIN pt exam, chart review, > 50% of time spent with exam, chart review, pt care coordination History of Present Illness History of Present Illness Mr Orourke is a 75-year-old male w/ PMHx prostate ca (s/p radx 2014), depression, DM2, Cirrhosis who presents to [facility] with report of shortness of breath that occurred upon waking day of admission when getting up to go to the restroom. Patient was recently diagnosed with COVID-19 on 11/02/2020. Has cirrhosis with regular paracentesis, last paracentesis was approximately 1 week ago at [facility]. Patient reports his abdomen does not feel overly distended and does not think he needs paracentesis at this time. Reports subjective fever and chills. Denies trauma. Very short of breath. H/o cirrhosis reportedly from fatty liver and alcohol. H/o variceal bleeding and ascites/paracentesis in 2013. S/p TIPS then - no issues w/ bleeding or ascites since then until 08/2020 - TIPS thrombosed (see US here 09/17, also reports MRI by urologist in showed non-functioning TIPS). Paracentesis x 4 since then, last 7.4L on 11/01. Labs at [facility] with WBC 3.4, Hb 10.8, platelets 77, NA 136, K3.9, BUN 20, CR 1, glucose 137, magnesium 1.6, bilirubin 2.2, AST 60, ALT 45, INR 1.4, troponin 0 0.066, BNP 2592, albumin 2.6, ammonia 62, lactic acid 2.3, D-dimer 7.41 CTPA with no pulmonary embolism, bilateral diffuse groundglass opacities, cirrhosis with TIPS moderate ascites. EKG appears NSR at 88 bpm, some baseline artifact noted primarily to aVL, NO ST elevation, LAFB, QRS 86ms, QT/QTc 396/483ms Patient was found to be hypoxic upon EMS arrival. Improved with supplemental O2. Patient transferred to [facility] for further care due to lack of GI resources at [facility]. Seen bedside with O2 saturations 91% on 3 L nasal cannula O2. Patient notes that he feels terrible. He is requested Covid treatment advised remdesivir and liver disease has not been well studied. He wishes to move forward with treatment. 11/09: Patient afebrile, breathing on 2 L nasal cannula. Remdesivir day 2/. WBC 1.6 yesterday, WBC 1.3 today. This could be seen in viral infections or hypersplenism secondary to cirrhosis. Continuetomonitor. Continue Rocephin, doxy, steroids, and supportive care. 11/10: Afebrile, breathing 2 L nasal cannula. WBC slightly improved. Liver enzymes are not significantly elevated, will continue to monitor. Continue treatment with remdesivir, steroids, antibiotics. 11/11: Patient breathing on 6 L nasal cannula. Afebrile. LFTs good. Continue remdesivir, steroids, antibiotics. 11-12 INC HYPOXIA ON NRB 15 LITERS NC , NOW DNR DR VELASCO CONSULTED Pancytopenia, elevated bili and AST (better) Cirrhosis, h/o variceal bleeding and ascites, TIPS occluded collagenous colitis - takes Imodium PRN at home Vitals Vitals Vital Signs Date Time Temp Pulse Resp B/P (MAP) Pulse Ox O2 Delivery O2 Flow Rate FiO2 11/12/20 08:18 62 180/92 11/12/20 07:31 97.8 24 90 Nasal Cannula 5.0 97.8 Physical Exam General: Alert, Oriented X3, Cooperative, mild distress Heart: Regular rate Lungs: Clear, Other Abdomen: Normal bowel sounds, Soft, Other (Fluid wave) Extremities: No clubbing, No cyanosis, No tenderness/swelling Skin: No rashes, No breakdown, No significant lesion Labs LABS PATIENT: MAT OROURKE ACCOUNT: [id number] : 1945 LOCATION: [address] [place] [address] AGE: 75 SEX: M EXAM STATUS: ADM IN ORD. PHYSICIAN: RENNY ARCINIEGA MD REASON: ascites PROCEDURE: ABDOMEN COMPLETE EXAM: ABDOMINAL ULTRASOUND. HISTORY: Ascites. COMPARISON: None. FINDINGS: Sonographic evaluation of the abdomen was performed. Mild hepatic surface nodularity is consistent with cirrhotic change. Hepatic parenchymal echotexture is coarsened. There are no focal lesions. The main portal vein is enlarged at 16 mm. It is mostly thrombosed. Portions of the intrahepatic portal venous system remains patent. The TIPS is not well visualized. The spleen measures 16.2 cm. Mild gallbladder wall thickening is consistent with liver disease. It is not distended. There is no sonographic Ibrahim sign. The common duct measures 4 mm. The pancreas is obscured currently. The right kidney measures 12.3 cm. Cortical thickness and echogenicity are preserved. There is no hydronephrosis. The left kidney measures 10.9 cm. Cortical thickness and echogenicity are preserved. There is no hydronephrosis. There is moderate ascites. The visualized portions of the abdominal aorta and inferior vena cava are grossly patent and normal in caliber. IMPRESSION: 1. Thrombosis of the main portal vein. The TIPS is not well-visualized and was not assessed on this study. 2. Cirrhotic change. Moderate ascites. No focal lesions are appreciated. 3. Moderate splenomegaly. 4. The pancreas is obscured currently. Electronically signed by: George Main MD (09/17/2020 8:38 PM) [facility] DICTATED and SIGNED BY: SUSANA MAIN MD DATE: 09/17/20 [id number] Laboratory Tests Test 11/12/20 06:17 White Blood Count 3.9 x10^3/uL (4.0-11.0) Red Blood Count 3.33 x10^6/uL (4.30-5.70) Hemoglobin 10.5 g/dL (13.0-17.5) Hematocrit 31.8 % (39.0-53.0) Mean Corpuscular Volume 96 fL (79-100) Mean Corpuscular Hemoglobin 32 pg (25-35) Mean Corpuscular Hemoglobin Concent 33 g/dL (31-37) Red Cell Distribution Width 14.9 % (11.5-14.5) Platelet Count 68 x10^3/uL (140-400) Neutrophils (%) (Auto) 87 % (31-73) Lymphocytes (%) (Auto) 3 % (24-48) Monocytes (%) (Auto) 10 % (0-9) Eosinophils (%) (Auto) 0 % (0-3) Basophils (%) (Auto) 0 % (0-3) Neutrophils # (Auto) 3.3 x10^3/uL (1.8-7.7) Lymphocytes # (Auto) 0.1 x10^3/uL (1.0-4.8) Monocytes # (Auto) 0.4 x10^3/uL (0.0-1.1) Eosinophils # (Auto) 0.0 x10^3/uL (0.0-0.7) Basophils # (Auto) 0.0 x10^3/uL (0.0-0.2) Total Bilirubin 1.5 mg/dL (0.2-1.0) Direct Bilirubin 0.5 mg/dL (0.0-0.2) Aspartate Amino Transf (AST/SGOT) 45 U/L (15-37) Alanine Aminotransferase (ALT/SGPT) 37 U/L (16-63) Alkaline Phosphatase 112 U/L (46-116) Total Protein 6.5 g/dL (6.4-8.2) Albumin 2.4 g/dL (3.4-5.0) Comment Review of Relevant I have reviewed the following items amador (where applicable) has been applied. Labs Laboratory Tests Test 11/11/20 04:30 11/11/20 05:00 11/12/20 06:17 VQ-Aeo-O-Type Natriuretic Peptide 2865 pg/mL (0-449) White Blood Count 2.7 x10^3/uL (4.0-11.0) 3.9 x10^3/uL (4.0-11.0) Red Blood Count 3.21 x10^6/uL (4.30-5.70) 3.33 x10^6/uL (4.30-5.70) Hemoglobin 10.2 g/dL (13.0-17.5) 10.5 g/dL (13.0-17.5) Hematocrit 30.6 % (39.0-53.0) 31.8 % (39.0-53.0) Mean Corpuscular Volume 95 fL (79-100) 96 fL (79-100) Mean Corpuscular Hemoglobin 32 pg (25-35) 32 pg (25-35) Mean Corpuscular Hemoglobin Concent 33 g/dL (31-37) 33 g/dL (31-37) Red Cell Distribution Width 15.2 % (11.5-14.5) 14.9 % (11.5-14.5) Platelet Count 70 x10^3/uL (140-400) 68 x10^3/uL (140-400) Neutrophils (%) (Auto) 86 % (31-73) 87 % (31-73) Lymphocytes (%) (Auto) 4 % (24-48) 3 % (24-48) Monocytes (%) (Auto) 10 % (0-9) 10 % (0-9) Eosinophils (%) (Auto) 0 % (0-3) 0 % (0-3) Basophils (%) (Auto) 0 % (0-3) 0 % (0-3) Neutrophils # (Auto) 2.3 x10^3/uL (1.8-7.7) 3.3 x10^3/uL (1.8-7.7) Lymphocytes # (Auto) 0.1 x10^3/uL (1.0-4.8) 0.1 x10^3/uL (1.0-4.8) Monocytes # (Auto) 0.3 x10^3/uL (0.0-1.1) 0.4 x10^3/uL (0.0-1.1) Eosinophils # (Auto) 0.0 x10^3/uL (0.0-0.7) 0.0 x10^3/uL (0.0-0.7) Basophils # (Auto) 0.0 x10^3/uL (0.0-0.2) 0.0 x10^3/uL (0.0-0.2) D-Dimer (Mara) 8.55 ug/mlFEU (0.00-0.50) Sodium Level 140 mmol/L (136-145) Potassium Level 4.2 mmol/L (3.5-5.1) Chloride Level 105 mmol/L (98-107) Carbon Dioxide Level 32 mmol/L (21-32) Anion Gap 3 (6-14) Blood Urea Nitrogen 24 mg/dL (8-26) Creatinine 0.9 mg/dL (0.7-1.3) Estimated GFR (Cockcroft-Gault) 82.3 Glucose Level 228 mg/dL (70-99) Calcium Level 8.5 mg/dL (8.5-10.1) Magnesium Level 1.9 mg/dL (1.8-2.4) Ferritin 542 ng/mL (26-388) Total Bilirubin 1.3 mg/dL (0.2-1.0) 1.5 mg/dL (0.2-1.0) Direct Bilirubin 0.5 mg/dL (0.0-0.2) 0.5 mg/dL (0.0-0.2) Aspartate Amino Transf (AST/SGOT) 44 U/L (15-37) 45 U/L (15-37) Alanine Aminotransferase (ALT/SGPT) 40 U/L (16-63) 37 U/L (16-63) Alkaline Phosphatase 81 U/L (46-116) 112 U/L (46-116) Lactate Dehydrogenase 518 U/L (85-227) Creatine Kinase 90 U/L (39-308) Total Protein 6.3 g/dL (6.4-8.2) 6.5 g/dL (6.4-8.2) Albumin 2.4 g/dL (3.4-5.0) 2.4 g/dL (3.4-5.0) Laboratory Tests Test 11/12/20 06:17 White Blood Count 3.9 x10^3/uL (4.0-11.0) Red Blood Count 3.33 x10^6/uL (4.30-5.70) Hemoglobin 10.5 g/dL (13.0-17.5) Hematocrit 31.8 % (39.0-53.0) Mean Corpuscular Volume 96 fL (79-100) Mean Corpuscular Hemoglobin 32 pg (25-35) Mean Corpuscular Hemoglobin Concent 33 g/dL (31-37) Red Cell Distribution Width 14.9 % (11.5-14.5) Platelet Count 68 x10^3/uL (140-400) Neutrophils (%) (Auto) 87 % (31-73) Lymphocytes (%) (Auto) 3 % (24-48) Monocytes (%) (Auto) 10 % (0-9) Eosinophils (%) (Auto) 0 % (0-3) Basophils (%) (Auto) 0 % (0-3) Neutrophils # (Auto) 3.3 x10^3/uL (1.8-7.7) Lymphocytes # (Auto) 0.1 x10^3/uL (1.0-4.8) Monocytes # (Auto) 0.4 x10^3/uL (0.0-1.1) Eosinophils # (Auto) 0.0 x10^3/uL (0.0-0.7) Basophils # (Auto) 0.0 x10^3/uL (0.0-0.2) Total Bilirubin 1.5 mg/dL (0.2-1.0) Direct Bilirubin 0.5 mg/dL (0.0-0.2) Aspartate Amino Transf (AST/SGOT) 45 U/L (15-37) Alanine Aminotransferase (ALT/SGPT) 37 U/L (16-63) Alkaline Phosphatase 112 U/L (46-116) Total Protein 6.5 g/dL (6.4-8.2) Albumin 2.4 g/dL (3.4-5.0) Medications Current Medications Furosemide (Lasix) 40 mg DAILY PO Last administered on 11/12/20at 08:18; Start 11/09/20 at 09:00 Lactulose (Lactulose) 20 gm DAILY PO ; Start 11/09/20 at 09:00; Stop 11/09/20 at 10:20; Status DC Lactulose (Lactulose) 20 gm PRN DAILY PRN PO CONSTIPATION; Start 11/08/20 at 12:15 Dexamethasone Sodium Phosphate (Decadron) 6 mg DAILY IVP Last administered on 11/12/20at 08:17; Start 11/09/20 at 09:00 Dexamethasone Sodium Phosphate (Decadron) 6 mg 1X ONCE IVP Last administered on 11/08/20at 13:10; Start 11/08/20 at 12:30; Stop 11/08/20 at 12:35; Status DC Ceftriaxone Sodium (Rocephin) 1 gm Q24H IVP Last administered on 11/11/20at 12:38; Start 11/08/20 at 13:00; Stop 11/12/20 at 13:01 Doxycycline Hyclate 100 mg/ Dextrose 100 ml @ 50 mls/hr Q12HR IV Last administered on 11/12/20at 08:19; Start 11/08/20 at 21:00; Stop 11/13/20 at 20:59 Ondansetron HCl (Zofran) 4 mg PRN Q6HRS PRN IVP NAUSEA/VOMITING Last administered on 11/09/20at 20:13; Start 11/08/20 at 12:45 Al Hydroxide/Mg Hydroxide (Mylanta Plus Xs) 30 ml PRN Q3HRS PRN PO HEARTBURN / GAS; Start 11/08/20 at 12:45 Calcium Carbonate/ Glycine (Tums) 500 mg PRN Q3HRS PRN PO UPSET STOMACH; Start 11/08/20 at 12:45 Acetaminophen (Tylenol) 650 mg PRN Q6HRS PRN PO Headaches, Temp > 101.5F; Start 11/08/20 at 12:45 Bisacodyl (Dulcolax Supp) 10 mg PRN DAILY PRN HI CONSTIPATION; Start 11/08/20 at 12:45 Enoxaparin Sodium (Lovenox 40mg Syringe) 40 mg Q24H SQ Last administered on 11/11/20at 17:40; Start 11/08/20 at 16:00 Duloxetine HCl (Cymbalta) 30 mg DAILY PO Last administered on 11/12/20at 08:18; Start 11/09/20 at 09:00 Insulin Human Lispro (HumaLOG) 8 units TIDWMEALS SQ Last administered on 11/12/20at 08:23; Start 11/08/20 at 17:00 Insulin Glargine (Lantus Syringe) 30 unit QHS SQ Last administered on 11/11/20at 21:17; Start 11/08/20 at 21:00 Insulin Human Lispro (HumaLOG) 0-9 UNITS TIDWMEALS SQ Last administered on 11/11/20at 17:41; Start 11/08/20 at 17:00 Dextrose (Dextrose 50%-Water Syringe) 12.5 gm PRN Q15MIN PRN IV SEE COMMENTS; Start 11/08/20 at 14:15 Remdesivir 200 mg/ Sodium Chloride 210 ml @ 210 mls/hr 1X ONCE IV Last administered on 11/08/20at 15:51; Start 11/08/20 at 15:00; Stop 11/08/20 at 15:59; Status DC Remdesivir 100 mg/ Sodium Chloride 230 ml @ 460 mls/hr Q24H IV Last administered on 11/11/20at 14:23; Start 11/09/20 at 15:00; Stop 11/12/20 at 15:29 Zinc Sulfate (Orazinc) 220 mg DAILY PO Last administered on 11/12/20at 08:17; Start 11/08/20 at 14:45 Thiamine Mononitrate (Vitamin B-1) 100 mg DAILY PO Last administered on 11/12/20at 08:18; Start 11/08/20 at 14:45 Guaifenesin (Robitussin Dm) 10 ml PRN Q6HRS PRN PO COUGH; Start 11/08/20 at 14:45 Propranolol HCl (Inderal La) 80 mg DAILY PO Last administered on 11/12/20at 08:18; Start 11/08/20 at 14:45 Albuterol Sulfate (Ventolin Hfa) 2 puff PRN Q4HRS PRN INH SHORTNESS OF BREATH Last administered on 11/12/20at 08:18; Start 11/08/20 at 15:15 Insulin Human Lispro (HumaLOG) 13 units 1X ONCE SQ Last administered on 11/08/20at 21:51; Start 11/08/20 at 21:45; Stop 11/08/20 at 21:53; Status DC Famotidine (Pepcid) 20 mg QHS PO Last administered on 11/11/20at 20:27; Start 11/09/20 at 21:00 Loperamide HCl (Imodium) 2 mg PRN Q15MIN PRN PO DIARRHEA Last administered on 11/10/20at 22:34; Start 11/10/20 at 21:45 Hydralazine HCl (Apresoline Inj) 10 mg PRN Q2HRS PRN IVP ELEVATED BP, SEE COMMENTS; Start 11/11/20 at 00:15 Active Scripts Active Reported Imodium A-D (Loperamide HCl) 2 Mg Capsule 2 Mg PO PRN PRN Propranolol Hcl 80 Mg Cap.sa.24h 80 Mg PO DAILY Lisinopril 20 Mg Tablet 20 Mg PO DAILY Lasix (Furosemide) 40 Mg Tablet 40 Mg PO DAILY Metformin Hcl 1,000 Mg Tablet 1,000 Mg PO BIDWMEALS Toujeo Solostar (Insulin Glargine,Hum.rec.anlog) 300 Unit/1 Ml Insuln.pen 30 Unit SQ DAILY Novolog Flexpen (Insulin Aspart) 100 Unit/1 Ml Insuln.pen 25 Unit SQ TIDAC uses sliding scale based on Dexacom Duloxetine Hcl 30 Mg Capsule.dr 30 Mg PO DAILY Vitals/I & O Vital Sign - Last 24 Hours 11/11/20 11/11/20 11/11/20 11/11/20 11:00 15:00 19:00 20:00 Temp 94.0 96.7 97.2 94.0 96.7 97.2 Pulse 59 58 60 Resp 26 22 30 B/P (MAP) 169/84 (112) 154/80 (104) 168/79 (108) Pulse Ox 94 94 92 O2 Delivery Nasal Cannula Nasal Cannula Nasal Cannula Nasal Cannula O2 Flow Rate 6.0 5.0 5.0 6.0 11/11/20 11/12/20 11/12/20 11/12/20 23:32 02:16 07:31 08:18 Temp 97.4 97.4 97.8 97.4 97.4 97.8 Pulse 57 57 62 62 Resp 25 24 B/P (MAP) 171/88 (115) 171/88 (115) 180/92 (121) 180/92 Pulse Ox 90 90 90 O2 Delivery Nasal Cannula Nasal Cannula Nasal Cannula O2 Flow Rate 5.0 5.0 5.0 Intake and Output 11/11/20 11/11/20 11/12/20 15:00 23:00 07:00 Intake Total 250 ml 0 ml Output Total 600 ml Balance 250 ml 0 ml -600 ml Nutrition Consultation Dietary Evaluation: Recommendations by RD: Dietary education by RD Comments: REC cardiac ( low Na ) diet , ADA offer snacks/supplements from unit prn Expected Outcomes/Goals: to meet >75% est nutr needs Malnutrition Findings: Food and Nutrition Intake (Sev: <50% est energy req 5days Weight Status: Overweight Fluid Accumulation (Severe): Severe Justicifation of Admission Dx: Justifications for Admission: Justification of Admission Dx: Comment: RENNY ARCINIEGA MD Nov 12, 2020 10:29
--- NOTE | 2020-11-12 10:57 | PDOC ---
Date of Service: DATE: 11/12/20 TIME: 10:50 Subjective: Subjective: "I just messed." I asked about ascites - first says he doesn't know if worse, then says worse. Objective: Objective: Nurse asks about paracentesis - pt brings it up. Says he gets confused, takes off O2, gets in chair. Vital Signs: Vital Signs Date Time Temp Pulse Resp B/P (MAP) Pulse Ox O2 Delivery O2 Flow Rate FiO2 11/12/20 08:18 62 180/92 11/12/20 07:31 97.8 24 90 Nasal Cannula 5.0 97.8 Labs: Laboratory Tests Test 11/12/20 06:17 White Blood Count 3.9 x10^3/uL Red Blood Count 3.33 x10^6/uL Hemoglobin 10.5 g/dL Hematocrit 31.8 % Mean Corpuscular Volume 96 fL Mean Corpuscular Hemoglobin 32 pg Mean Corpuscular Hemoglobin Concent 33 g/dL Red Cell Distribution Width 14.9 % Platelet Count 68 x10^3/uL Neutrophils (%) (Auto) 87 % Lymphocytes (%) (Auto) 3 % Monocytes (%) (Auto) 10 % Eosinophils (%) (Auto) 0 % Basophils (%) (Auto) 0 % Neutrophils # (Auto) 3.3 x10^3/uL Lymphocytes # (Auto) 0.1 x10^3/uL Monocytes # (Auto) 0.4 x10^3/uL Eosinophils # (Auto) 0.0 x10^3/uL Basophils # (Auto) 0.0 x10^3/uL Total Bilirubin 1.5 mg/dL Direct Bilirubin 0.5 mg/dL Aspartate Amino Transf (AST/SGOT) 45 U/L Alanine Aminotransferase (ALT/SGPT) 37 U/L Alkaline Phosphatase 112 U/L Total Protein 6.5 g/dL Albumin 2.4 g/dL PE: GEN: appears ill LUNGS: tachypneic, difficultly speaking - NC off and at foot of bed - I replaced HEART: RR ABD: some ascites but not tight NEURO/PSYCH: awake and alert A/P: COVID-19 resp failure - per primary Pancytopenia, elevated bili and AST (better) Cirrhosis, h/o variceal bleeding and ascites, TIPS occluded H/o collagenous colitis - takes Imodium PRN at home -- Worse than when I saw last week. Has had SOA associated w/ ascites in the past - doesn't seem to be the case this time but will ask for paracentesis, check ammonia. Justicifation of Admission Dx: Justifications for Admission: Justification of Admission Dx: Comment: DAV LUNDY Nov 12, 2020 10:57
[2020-11-12 11:38] VITALS: BP 148/82
[2020-11-12 11:39] LABS: CALCIUM 8.6 mg/dL (8.5-10.1); CREATININE 0.7 mg/dL (0.7-1.3); GFR 109.9; POTASSIUM 4.1 mmol/L (3.5-5.1)
[2020-11-12 11:45] LABS: BASE EXCESS ABG 3 mmol/L (-3-3); HCO3 ABG 28 mmol/L (21-28); PCO2 ABG 45 mmHg (35-46); SAT O2 ABG 79 % (92-99)
[2020-11-12 11:50] LABS: FIO2 ABG 40/ 5l nc; PO2 ABG 45 mmHg (65-108)
[2020-11-12 12:41] LABS: PROTHROMBIN TIME PATIENT 21.9 SEC (11.7-14.0)
[2020-11-12] MEDS: cefTRIAXone IV Push 1 GM VIAL. IVP SCH (13:00)
--- NOTE | 2020-11-12 13:10 | CONS ---
DATE OF CONSULTATION: PULMONARY CONSULTATION ATTENDING PHYSICIAN: Sb Carpenter MD REASON FOR CONSULTATION: Hypoxic respiratory failure. HISTORY OF PRESENT ILLNESS: The patient is a 75-year-old with history of prostate cancer, history of cirrhosis, who presented to [facility] after he was diagnosed with COVID-19 on 11/02/2020. The patient has history of cirrhosis with regular paracentesis. Last paracentesis was about a week ago. The patient had a TIPS procedure, which is now nonfunctioning. The patient was consulted by us today due to progressive hypoxia. He underwent a CT angiogram, which was reviewed by me. The patient has bilateral patchy ground glass infiltrates. No significant pleural effusion seen. There was no definite pulmonary embolism observed. The patient is now on 100% nonrebreather mask. He has a mild cough. No chest pain. Consultation requested for further evaluation and management. PAST MEDICAL HISTORY: Significant for hypertension and cirrhosis. ____ osteoarthritis and diabetes. No significant tobacco history. PAST SURGICAL HISTORY: TIPS. FAMILY HISTORY: Hypertension. ALLERGIES: None. MEDICATIONS: Reviewed as listed in the MRAD including remdesivir, dexamethasone and Rocephin. REVIEW OF SYSTEMS: Ten-point system obtained. Pertinent positives discussed in my history of present illness, otherwise noncontributory. All systems that were negative were reviewed as well. PHYSICAL EXAMINATION: VITAL SIGNS: He is on nonrebreather mask. Afebrile, blood pressure is stable. GENERAL: Visual exam done due to COVID-19 pneumonia. No paradoxical breathing, no skin rash. He is obese. LABORATORY DATA: Reviewed. His white cell count was 1.3, now is 3.9. ABGs with a pH of 7.42, pCO2 of 45 and a pO2 of 45 on 40% FiO2. IMPRESSION: 1. Acute hypoxic respiratory failure secondary to COVID-19 pneumonia. 2. No evidence of pulmonary embolism. 3. Abnormal CT chest with bilateral ground glass infiltrates, suggestive of COVID-19 pneumonia. 4. The patient with history of cirrhosis, status post TIPS procedure, which recently failed and has been requiring paracentesis regularly. 5. No significant tobacco history. 6. Markedly elevated D-dimer. We will need to follow closely. This could be secondary to multifactorial etiologies. 7. Leukopenia, now improving. Likely due to viral infection. RECOMMENDATIONS: 1. Discussed with the patient, RN and RT. We will continue 100% FiO2. 2. I have discussed advanced directives and he agrees to be DNR. 3. Continue present remdesivir, 5-day course. 4. IV dexamethasone. 5. Empiric antibiotic. 6. Lovenox for DVT prophylaxis and follow D-dimer as needed. 7. We will follow along with you. Critical care time 30 minutes. LORRI VELASCO MD DR: SARAY/isaac JOB#: [id number] / [id number]
[2020-11-12 15:19] VITALS: BP 151/80
[2020-11-12] MEDS: ENOXAPARIN 40 MG/0.4 ML SYRINGE. SQ SCH (17:24)
[2020-11-12] MEDS: REMDESIVIR 100mg in NORMAL SALINE 250ML X 4 DAYS IV SCH (17:24)
[2020-11-12 19:00] VITALS: BP 190/91
[2020-11-12] MEDS ORDERED: LORazepam 0.5 MG TABLET PO ONE (20:15)
[2020-11-12] MEDS: FAMOTIDINE 20 MG TABLET. PO SCH (20:27)
[2020-11-12] MEDS: INSULIN GLARGINE SYRINGE. SQ SCH (21:50)
[2020-11-12 21:55] LABS: BASE EXCESS ABG 2 mmol/L (-3-3); HCO3 ABG 26 mmol/L (21-28); PCO2 ABG 40 mmHg (35-46); PO2 ABG 86 mmHg (65-108); SAT O2 ABG 96 % (92-99)
[2020-11-12 21:59] LABS: FIO2 ABG 100% 15L NRB
[2020-11-12 23:00] VITALS: BP 161/78
[2020-11-13 03:00] VITALS: BP 165/76
--- NOTE | 2020-11-13 06:49 | PDOC ---
PROGRESS NOTES Date of Service: DATE: 11/13/20 TIME: 06:49 Chief Complaint Chief Complaint impression Acute respiratory failure with Hypoxia - related to COVID 19 pneumonia, will also treat for likely gram negative pneumonia as well given his cirrhosis and risk factors.. Steroids and remdesivir ordered. Wean O2 as tolerated COVID-19 - with pneumonia, have d/w patient risks of remdesivir in liver disease, he wishes to have treatment, WORSENING HYPOXIA Cirrhosis - with ascites. S/p TIPS for variceal bleeding in 2013. GI following. Will continue diuretics and monitor. EGD and colonoscopy w/ Dr. Hunter in 06/2020 - path w/ collagenous colitis. Hyperammonemia - likely related to cirrhosis Elevated troponin - likely demand ischemia, will trend Anemia- likely of chronic disease. will trend Leukopenia - likely related to liver disease and covid 19, will monitor HTN HLD DM -on Toujeo and sliding scale, will convert to Lantus and increase sliding scale while he is on dexamethasone. Prostate cancer - s/p radiation therapy, in remission OA - stable Gout - not in flare currently Pancytopenia, elevated bili and AST Cirrhosis, h/o variceal bleeding and ascites, TIPS occluded collagenous colitis - takes Imodium PRN at home SEVERE PROTEIN-CALORIC MALNUTRITION PLAN FEN - ADA diet PPX - lovenox, will watch platelets DNR OF 11-12 D/W DR KRISTA Bueno - inpatient telemetry monitoring in COVID 19 isolation unit paracentesis today 11-12 CANCELLED no paracentesis until COVID infection cleared. 11-13 POOR INTAKE, D/W RN, will consult hospice, DNR// Pulmonary status worsening. 29 MIN pt exam, chart review, > 50% of time spent with exam, chart review, pt care coordination History of Present Illness History of Present Illness Mr Orourke is a 75-year-old male w/ PMHx prostate ca (s/p radx 2014), depression, DM2, Cirrhosis who presents to [facility] ED with report of shortness of breath that occurred upon waking day of admission when getting up to go to the restroom. Patient was recently diagnosed with COVID-19 on 11/02/2020. Has cirrhosis with regular paracentesis, last paracentesis was approximately 1 week ago at [facility]. Patient reports his abdomen does not feel overly distended and does not think he needs paracentesis at this time. Reports subjective fever and chills. Denies trauma. Very short of breath. H/o cirrhosis reportedly from fatty liver and alcohol. H/o variceal bleeding and ascites/paracentesis in 2013. S/p TIPS then - no issues w/ bleeding or ascites since then until 08/2020 - TIPS thrombosed (see US here 09/17, also reports MRI by urologist in showed non-functioning TIPS). Paracentesis x 4 since then, last 7.4L on 11/01. Labs at [facility] with WBC 3.4, Hb 10.8, platelets 77, NA 136, K3.9, BUN 20, CR 1, glucose 137, magnesium 1.6, bilirubin 2.2, AST 60, ALT 45, INR 1.4, troponin 0 0.066, BNP 2592, albumin 2.6, ammonia 62, lactic acid 2.3, D-dimer 7.41 CTPA with no pulmonary embolism, bilateral diffuse groundglass opacities, cirrhosis with TIPS moderate ascites. EKG appears NSR at 88 bpm, some baseline artifact noted primarily to aVL, NO ST elevation, LAFB, QRS 86ms, QT/QTc 396/483ms Patient was found to be hypoxic upon EMS arrival. Improved with supplemental O2. Patient transferred to [facility] for further care due to lack of GI resources at [facility]. Seen bedside with O2 saturations 91% on 3 L nasal cannula O2. Patient notes that he feels terrible. He is requested Covid treatment advised remdesivir and liver disease has not been well studied. He wishes to move forward with treatment. 11/09: Patient afebrile, breathing on 2 L nasal cannula. Remdesivir day 2/5. WBC 1.6 yesterday, WBC 1.3 today. This could be seen in viral infections or hypersplenism secondary to cirrhosis. Continuetomonitor. Continue Rocephin, doxy, steroids, and supportive care. 11/10: Afebrile, breathing 2 L nasal cannula. WBC slightly improved. Liver e nzymes are not significantly elevated, will continue to monitor. Continue treatment with remdesivir, steroids, antibiotics. 11/11: Patient breathing on 6 L nasal cannula. Afebrile. LFTs good. Continue remdesivir, steroids, antibiotics. 11-12 INC HYPOXIA ON NRB 15 LITERS NC , NOW DNR DR VELASCO CONSULTED Pancytopenia, elevated bili and AST (better) Cirrhosis, h/o variceal bleeding and ascites, TIPS occluded collagenous colitis - takes Imodium PRN at home 1= HOSPICE intake discussed, poor prognosis, D/W CASE MGT Vitals Vitals Vital Signs Date Time Temp Pulse Resp B/P (MAP) Pulse Ox O2 Delivery O2 Flow Rate FiO2 11/13/20 03:00 97.1 71 30 165/76 (105) 92 NonRebreather Mask 15.0 97.1 Physical Exam General: Alert, Oriented X3, Cooperative, mild distress Heart: Regular rate Lungs: Clear, Other Abdomen: Normal bowel sounds, Soft, Other (Fluid wave) Extremities: No clubbing, No cyanosis, No tenderness/swelling Skin: No rashes, No breakdown, No significant lesion Labs LABS Laboratory Tests Test 11/12/20 11:43 11/12/20 12:05 11/12/20 21:45 O2 Saturation 79 % (92-99) 96 % (92-99) Arterial Blood pH 7.42 (7.35-7.45) 7.43 (7.35-7.45) Arterial Blood pCO2 at Patient Temp 45 mmHg (35-46) 40 mmHg (35-46) Arterial Blood pO2 at Patient Temp 45 mmHg (65-108) 86 mmHg (65-108) Arterial Blood HCO3 28 mmol/L (21-28) 26 mmol/L (21-28) Arterial Blood Base Excess 3 mmol/L (-3-3) 2 mmol/L (-3-3) FiO2 40/ 5l nc 100% 15l nrb Prothrombin Time 21.9 SEC (11.7-14.0) Prothromb Time International Ratio 1.9 (0.8-1.1) Activated Partial Thromboplast Time 32 SEC (24-38) Ammonia < 10 mcmol/L (11-34) Comment Review of Relevant I have reviewed the following items amador (where applicable) has been applied. Labs Laboratory Tests Test 11/12/20 06:17 11/12/20 11:43 11/12/20 12:05 11/12/20 21:45 White Blood Count 3.9 x10^3/uL (4.0-11.0) Red Blood Count 3.33 x10^6/uL (4.30-5.70) Hemoglobin 10.5 g/dL (13.0-17.5) Hematocrit 31.8 % (39.0-53.0) Mean Corpuscular Volume 96 fL (79-100) Mean Corpuscular Hemoglobin 32 pg (25-35) Mean Corpuscular Hemoglobin Concent 33 g/dL (31-37) Red Cell Distribution Width 14.9 % (11.5-14.5) Platelet Count 68 x10^3/uL (140-400) Neutrophils (%) (Auto) 87 % (31-73) Lymphocytes (%) (Auto) 3 % (24-48) Monocytes (%) (Auto) 10 % (0-9) Eosinophils (%) (Auto) 0 % (0-3) Basophils (%) (Auto) 0 % (0-3) Neutrophils # (Auto) 3.3 x10^3/uL (1.8-7.7) Lymphocytes # (Auto) 0.1 x10^3/uL (1.0-4.8) Monocytes # (Auto) 0.4 x10^3/uL (0.0-1.1) Eosinophils # (Auto) 0.0 x10^3/uL (0.0-0.7) Basophils # (Auto) 0.0 x10^3/uL (0.0-0.2) Sodium Level 145 mmol/L (136-145) Potassium Level 4.1 mmol/L (3.5-5.1) Chloride Level 107 mmol/L (98-107) Carbon Dioxide Level 34 mmol/L (21-32) Anion Gap 4 (6-14) Blood Urea Nitrogen 22 mg/dL (8-26) Creatinine 0.7 mg/dL (0.7-1.3) Estimated GFR (Cockcroft-Gault) 109.9 Glucose Level 119 mg/dL (70-99) Calcium Level 8.6 mg/dL (8.5-10.1) Total Bilirubin 1.5 mg/dL (0.2-1.0) Direct Bilirubin 0.5 mg/dL (0.0-0.2) Aspartate Amino Transf (AST/SGOT) 45 U/L (15-37) Alanine Aminotransferase (ALT/SGPT) 37 U/L (16-63) Alkaline Phosphatase 112 U/L (46-116) Total Protein 6.5 g/dL (6.4-8.2) Albumin 2.4 g/dL (3.4-5.0) O2 Saturation 79 % (92-99) 96 % (92-99) Arterial Blood pH 7.42 (7.35-7.45) 7.43 (7.35-7.45) Arterial Blood pCO2 at Patient Temp 45 mmHg (35-46) 40 mmHg (35-46) Arterial Blood pO2 at Patient Temp 45 mmHg (65-108) 86 mmHg (65-108) Arterial Blood HCO3 28 mmol/L (21-28) 26 mmol/L (21-28) Arterial Blood Base Excess 3 mmol/L (-3-3) 2 mmol/L (-3-3) FiO2 40/ 5l nc 100% 15l nrb Prothrombin Time 21.9 SEC (11.7-14.0) Prothromb Time International Ratio 1.9 (0.8-1.1) Activated Partial Thromboplast Time 32 SEC (24-38) Ammonia < 10 mcmol/L (11-34) Laboratory Tests Test 11/12/20 11:43 11/12/20 12:05 11/12/20 21:45 O2 Saturation 79 % (92-99) 96 % (92-99) Arterial Blood pH 7.42 (7.35-7.45) 7.43 (7.35-7.45) Arterial Blood pCO2 at Patient Temp 45 mmHg (35-46) 40 mmHg (35-46) Arterial Blood pO2 at Patient Temp 45 mmHg (65-108) 86 mmHg (65-108) Arterial Blood HCO3 28 mmol/L (21-28) 26 mmol/L (21-28) Arterial Blood Base Excess 3 mmol/L (-3-3) 2 mmol/L (-3-3) FiO2 40/ 5l nc 100% 15l nrb Prothrombin Time 21.9 SEC (11.7-14.0) Prothromb Time International Ratio 1.9 (0.8-1.1) Activated Partial Thromboplast Time 32 SEC (24-38) Ammonia < 10 mcmol/L (11-34) Medications Current Medications Furosemide (Lasix) 40 mg DAILY PO Last administered on 11/12/20at 08:18; Start 11/09/20 at 09:00 Lactulose (Lactulose) 20 gm DAILY PO ; Start 11/09/20 at 09:00; Stop 11/09/20 at 10:20; Status DC Lactulose (Lactulose) 20 gm PRN DAILY PRN PO CONSTIPATION; Start 11/08/20 at 12:15 Dexamethasone Sodium Phosphate (Decadron) 6 mg DAILY IVP Last administered on 11/12/20at 08:17; Start 11/09/20 at 09:00 Dexamethasone Sodium Phosphate (Decadron) 6 mg 1X ONCE IVP Last administered on 11/08/20at 13:10; Start 11/08/20 at 12:30; Stop 11/08/20 at 12:35; Status DC Ceftriaxone Sodium (Rocephin) 1 gm Q24H IVP Last administered on 11/12/20at 13:00; Start 11/08/20 at 13:00; Stop 11/12/20 at 13:01; Status DC Doxycycline Hyclate 100 mg/ Dextrose 100 ml @ 50 mls/hr Q12HR IV Last administered on 11/12/20at 20:29; Start 11/08/20 at 21:00; Stop 11/13/20 at 20:59 Ondansetron HCl (Zofran) 4 mg PRN Q6HRS PRN IVP NAUSEA/VOMITING Last administered on 11/09/20at 20:13; Start 11/08/20 at 12:45 Al Hydroxide/Mg Hydroxide (Mylanta Plus Xs) 30 ml PRN Q3HRS PRN PO HEARTBURN / GAS; Start 11/08/20 at 12:45 Calcium Carbonate/ Glycine (Tums) 500 mg PRN Q3HRS PRN PO UPSET STOMACH; Start 11/08/20 at 12:45 Acetaminophen (Tylenol) 650 mg PRN Q6HRS PRN PO Headaches, Temp > 101.5F; Start 11/08/20 at 12:45 Bisacodyl (Dulcolax Supp) 10 mg PRN DAILY PRN NM CONSTIPATION; Start 11/08/20 at 12:45 Enoxaparin Sodium (Lovenox 40mg Syringe) 40 mg Q24H SQ Last administered on 11/12/20at 17:24; Start 11/08/20 at 16:00 Duloxetine HCl (Cymbalta) 30 mg DAILY PO Last administered on 11/12/20at 08:18; Start 11/09/20 at 09:00 Insulin Human Lispro (HumaLOG) 8 units TIDWMEALS SQ Last administered on 11/12/20at 12:00; Start 11/08/20 at 17:00 Insulin Glargine (Lantus Syringe) 30 unit QHS SQ Last administered on 11/12/20at 21:50; Start 11/08/20 at 21:00 Insulin Human Lispro (HumaLOG) 0-9 UNITS TIDWMEALS SQ Last administered on 11/11/20at 17:41; Start 11/08/20 at 17:00 Dextrose (Dextrose 50%-Water Syringe) 12.5 gm PRN Q15MIN PRN IV SEE COMMENTS; Start 11/08/20 at 14:15 Remdesivir 200 mg/ Sodium Chloride 210 ml @ 210 mls/hr 1X ONCE IV Last a dministered on 11/08/20at 15:51; Start 11/08/20 at 15:00; Stop 11/08/20 at 15:59; Status DC Remdesivir 100 mg/ Sodium Chloride 230 ml @ 460 mls/hr Q24H IV Last administered on 11/12/20at 17:24; Start 11/09/20 at 15:00; Stop 11/12/20 at 15:29; Status DC Zinc Sulfate (Orazinc) 220 mg DAILY PO Last administered on 11/12/20at 08:17; Start 11/08/20 at 14:45 Thiamine Mononitrate (Vitamin B-1) 100 mg DAILY PO Last administered on 11/12/20at 08:18; Start 11/08/20 at 14:45 Guaifenesin (Robitussin Dm) 10 ml PRN Q6HRS PRN PO COUGH; Start 11/08/20 at 14:45 Propranolol HCl (Inderal La) 80 mg DAILY PO Last administered on 11/12/20at 08:18; Start 11/08/20 at 14:45 Albuterol Sulfate (Ventolin Hfa) 2 puff PRN Q4HRS PRN INH SHORTNESS OF BREATH Last administered on 11/12/20at 08:18; Start 11/08/20 at 15:15 Insulin Human Lispro (HumaLOG) 13 units 1X ONCE SQ Last administered on 11/08/20at 21:51; Start 11/08/20 at 21:45; Stop 11/08/20 at 21:53; Status DC Famotidine (Pepcid) 20 mg QHS PO Last administered on 11/12/20at 20:27; Start 11/09/20 at 21:00 Loperamide HCl (Imodium) 2 mg PRN Q15MIN PRN PO DIARRHEA Last administered on 11/10/20at 22:34; Start 11/10/20 at 21:45 Hydralazine HCl (Apresoline Inj) 10 mg PRN Q2HRS PRN IVP ELEVATED BP, SEE COMMENTS Last administered on 11/12/20at 20:31; Start 11/11/20 at 00:15 Lorazepam (Ativan) 0.25 mg 1X ONCE PO Last administered on 11/12/20at 20:27; Start 11/12/20 at 20:15; Stop 11/12/20 at 20:16; Status DC Lorazepam (Ativan) 0.25 mg PRN Q6HRS PRN PO ANXIETY / AGITATION; Start 11/12/20 at 23:45 Active Scripts Active Reported Imodium A-D (Loperamide HCl) 2 Mg Capsule 2 Mg PO PRN PRN Propranolol Hcl 80 Mg Cap.sa.24h 80 Mg PO DAILY Lisinopril 20 Mg Tablet 20 Mg PO DAILY Lasix (Furosemide) 40 Mg Tablet 40 Mg PO DAILY Metformin Hcl 1,000 Mg Tablet 1,000 Mg PO BIDWMEALS Toujeo Solostar (Insulin Glargine,Hum.rec.anlog) 300 Unit/1 Ml Insuln.pen 30 Unit SQ DAILY Novolog Flexpen (Insulin Aspart) 100 Unit/1 Ml Insuln.pen 25 Unit SQ TIDAC uses sliding scale based on Dexacom Duloxetine Hcl 30 Mg Capsule.dr 30 Mg PO DAILY Vitals/I & O Vital Sign - Last 24 Hours 11/12/20 11/12/20 11/12/20 11/12/20 07:31 08:00 08:18 11:38 Temp 97.8 97.7 97.8 97.7 Pulse 62 62 63 Resp 24 24 B/P (MAP) 180/92 (121) 180/92 148/82 (104) Pulse Ox 90 88 O2 Delivery Nasal Cannula Nasal Cannula Nasal Cannula O2 Flow Rate 5.0 15.0 5.0 11/12/20 11/12/20 11/12/20 11/12/20 11:38 15:19 19:00 20:00 Temp 97.6 95.0 97.6 95.0 Pulse 60 66 Resp 26 30 B/P (MAP) 151/80 (103) 190/91 (124) Pulse Ox 85 88 92 O2 Delivery Nasal Cannula NonRebreather Mask NonRebreather Mask Non-Rebreather O2 Flow Rate 5.0 15.0 15.0 15.0 11/12/20 11/12/20 11/12/20 11/13/20 20:31 21:45 23:00 03:00 Temp 97.3 97.1 97.3 97.1 Pulse 56 59 71 Resp 16 30 B/P (MAP) 190/91 161/78 (105) 165/76 (105) Pulse Ox 96 93 92 O2 Delivery NonRebreather Mask NonRebreather Mask NonRebreather Mask O2 Flow Rate 15.0 15.0 15.0 Intake and Output 11/12/20 11/12/20 11/13/20 15:00 23:00 07:00 Intake Total 400 ml 100 ml 0 ml Balance 400 ml 100 ml 0 ml Nutrition Consultation Dietary Evaluation: Recommendations by RD: Dietary education by RD Comments: REC cardiac ( low Na ) diet , ADA offer snacks/supplements from unit prn Expected Outcomes/Goals: to meet >75% est nutr needs Malnutrition Findings: Food and Nutrition Intake (Sev: <50% est energy req 5days Weight Status: Overweight Fluid Accumulation (Severe): Severe Justicifation of Admission Dx: Justifications for Admission: Justification of Admission Dx: Comment: RENNY ARCINIEGA MD Nov 13, 2020 06:49
[2020-11-13 07:00] VITALS: BP 184/86
[2020-11-13] MEDS: INSULIN LISPRO 300 UNITS/3 ML VIAL. SQ SCH ×6 (08:00→17:00)
[2020-11-13 08:29] LABS: BASO % 0 % (0-3); EOS % 0 % (0-3); HEMATOCRIT 33.3 % (39.0-53.0); LYMPH # 0.1 x10^3/uL (1.0-4.8); LYMPH % 2 % (24-48); MEAN CORPUSCULAR HEMOGLOBIN 31 pg (25-35); MEAN CORPUSCULAR HGB CONC 33 g/dL (31-37); MEAN CORPUSCULAR VOLUME 95 fL (79-100); MONO # 0.6 x10^3/uL (0.0-1.1); MONO % 11 % (0-9); NEUT # 4.9 x10^3/uL (1.8-7.7); NEUT % 86 % (31-73); PLATELET COUNT 69 x10^3/uL (140-400); RED BLOOD COUNT 3.51 x10^6/uL (4.30-5.70); RED CELL DISTRIBUTION WIDTH 15.1 % (11.5-14.5); WHITE BLOOD COUNT 5.7 x10^3/uL (4.0-11.0)
[2020-11-13 08:48] LABS: ALBUMIN 2.4 g/dL (3.4-5.0); DIRECT BILIRUBIN 0.7 mg/dL (0.0-0.2); TOTAL PROTEIN 6.5 g/dL (6.4-8.2)
[2020-11-13] MEDS: PROPRANOLOL ER 80 MG CAP.ER.24H. PO SCH (08:56)
[2020-11-13] MEDS: ZINC SULFATE 220 MG CAPSULE. PO SCH (08:57)
[2020-11-13] MEDS: THIAMINE 100 MG TABLET. PO SCH (08:57)
[2020-11-13] MEDS: DEXAMETHASONE SOD PHOS 4 MG/ML VIAL IVP SCH (08:57)
[2020-11-13] MEDS: FUROSEMIDE 40 MG TABLET. PO SCH (08:57)
[2020-11-13] MEDS: DULoxetine HCL 30 MG CAPSULE.DR PO SCH (08:57)
[2020-11-13] MEDS: DOXYCYCLINE HYCLATE 100 MG in IV DEXTROSE 5% 100ML 100 ML IV SCH (09:00)
[2020-11-13 09:05] LABS: CALCIUM 8.9 mg/dL (8.5-10.1); CREATININE 0.7 mg/dL (0.7-1.3); GFR 109.9; POTASSIUM 4.3 mmol/L (3.5-5.1)
--- NOTE | 2020-11-13 09:05 | PDOC ---
PULMONARY PROGRESS NOTES DATE: 11/13/20 TIME: 09:02 Subjective Patient is resting on 100% nonrebreather Vitals Vital Signs Date Time Temp Pulse Resp B/P (MAP) Pulse Ox O2 Delivery O2 Flow Rate FiO2 11/13/20 08:56 62 184/86 11/13/20 07:31 Non-Rebreather 15.0 11/13/20 07:00 96.2 21 90 96.2 Comments Patient is seen during COVID- pandemic, visual exam performed Regular rate and rhythm 100% nonrebreather mild increase in resp. effort no edema or rash Lungs: Clear, Other Labs Laboratory Tests Test 11/12/20 06:17 11/12/20 11:43 11/12/20 12:05 11/12/20 21:45 White Blood Count 3.9 x10^3/uL (4.0-11.0) Red Blood Count 3.33 x10^6/uL (4.30-5.70) Hemoglobin 10.5 g/dL (13.0-17.5) Hematocrit 31.8 % (39.0-53.0) Mean Corpuscular Volume 96 fL (79-100) Mean Corpuscular Hemoglobin 32 pg (25-35) Mean Corpuscular Hemoglobin Concent 33 g/dL (31-37) Red Cell Distribution Width 14.9 % (11.5-14.5) Platelet Count 68 x10^3/uL (140-400) Neutrophils (%) (Auto) 87 % (31-73) Lymphocytes (%) (Auto) 3 % (24-48) Monocytes (%) (Auto) 10 % (0-9) Eosinophils (%) (Auto) 0 % (0-3) Basophils (%) (Auto) 0 % (0-3) Neutrophils # (Auto) 3.3 x10^3/uL (1.8-7.7) Lymphocytes # (Auto) 0.1 x10^3/uL (1.0-4.8) Monocytes # (Auto) 0.4 x10^3/uL (0.0-1.1) Eosinophils # (Auto) 0.0 x10^3/uL (0.0-0.7) Basophils # (Auto) 0.0 x10^3/uL (0.0-0.2) Sodium Level 145 mmol/L (136-145) Potassium Level 4.1 mmol/L (3.5-5.1) Chloride Level 107 mmol/L (98-107) Carbon Dioxide Level 34 mmol/L (21-32) Anion Gap 4 (6-14) Blood Urea Nitrogen 22 mg/dL (8-26) Creatinine 0.7 mg/dL (0.7-1.3) Estimated GFR (Cockcroft-Gault) 109.9 Glucose Level 119 mg/dL (70-99) Calcium Level 8.6 mg/dL (8.5-10.1) Total Bilirubin 1.5 mg/dL (0.2-1.0) Direct Bilirubin 0.5 mg/dL (0.0-0.2) Aspartate Amino Transf (AST/SGOT) 45 U/L (15-37) Alanine Aminotransferase (ALT/SGPT) 37 U/L (16-63) Alkaline Phosphatase 112 U/L (46-116) Total Protein 6.5 g/dL (6.4-8.2) Albumin 2.4 g/dL (3.4-5.0) O2 Saturation 79 % (92-99) 96 % (92-99) Arterial Blood pH 7.42 (7.35-7.45) 7.43 (7.35-7.45) Arterial Blood pCO2 at Patient Temp 45 mmHg (35-46) 40 mmHg (35-46) Arterial Blood pO2 at Patient Temp 45 mmHg (65-108) 86 mmHg (65-108) Arterial Blood HCO3 28 mmol/L (21-28) 26 mmol/L (21-28) Arterial Blood Base Excess 3 mmol/L (-3-3) 2 mmol/L (-3-3) FiO2 40/ 5l nc 100% 15l nrb Prothrombin Time 21.9 SEC (11.7-14.0) Prothromb Time International Ratio 1.9 (0.8-1.1) Activated Partial Thromboplast Time 32 SEC (24-38) Ammonia < 10 mcmol/L (11-34) Test 11/13/20 08:04 White Blood Count 5.7 x10^3/uL (4.0-11.0) Red Blood Count 3.51 x10^6/uL (4.30-5.70) Hemoglobin 11.0 g/dL (13.0-17.5) Hematocrit 33.3 % (39.0-53.0) Mean Corpuscular Volume 95 fL (79-100) Mean Corpuscular Hemoglobin 31 pg (25-35) Mean Corpuscular Hemoglobin Concent 33 g/dL (31-37) Red Cell Distribution Width 15.1 % (11.5-14.5) Platelet Count 69 x10^3/uL (140-400) Neutrophils (%) (Auto) 86 % (31-73) Lymphocytes (%) (Auto) 2 % (24-48) Monocytes (%) (Auto) 11 % (0-9) Eosinophils (%) (Auto) 0 % (0-3) Basophils (%) (Auto) 0 % (0-3) Neutrophils # (Auto) 4.9 x10^3/uL (1.8-7.7) Lymphocytes # (Auto) 0.1 x10^3/uL (1.0-4.8) Monocytes # (Auto) 0.6 x10^3/uL (0.0-1.1) Eosinophils # (Auto) 0.0 x10^3/uL (0.0-0.7) Basophils # (Auto) 0.0 x10^3/uL (0.0-0.2) Total Bilirubin 2.0 mg/dL (0.2-1.0) Direct Bilirubin 0.7 mg/dL (0.0-0.2) Aspartate Amino Transf (AST/SGOT) 45 U/L (15-37) Alanine Aminotransferase (ALT/SGPT) 40 U/L (16-63) Alkaline Phosphatase 126 U/L (46-116) Total Protein 6.5 g/dL (6.4-8.2) Albumin 2.4 g/dL (3.4-5.0) Laboratory Tests Test 11/12/20 11:43 11/12/20 12:05 11/12/20 21:45 11/13/20 08:04 O2 Saturation 79 % (92-99) 96 % (92-99) Arterial Blood pH 7.42 (7.35-7.45) 7.43 (7.35-7.45) Arterial Blood pCO2 at Patient Temp 45 mmHg (35-46) 40 mmHg (35-46) Arterial Blood pO2 at Patient Temp 45 mmHg (65-108) 86 mmHg (65-108) Arterial Blood HCO3 28 mmol/L (21-28) 26 mmol/L (21-28) Arterial Blood Base Excess 3 mmol/L (-3-3) 2 mmol/L (-3-3) FiO2 40/ 5l nc 100% 15l nrb Prothrombin Time 21.9 SEC (11.7-14.0) Prothromb Time International Ratio 1.9 (0.8-1.1) Activated Partial Thromboplast Time 32 SEC (24-38) Ammonia < 10 mcmol/L (11-34) White Blood Count 5.7 x10^3/uL (4.0-11.0) Red Blood Count 3.51 x10^6/uL (4.30-5.70) Hemoglobin 11.0 g/dL (13.0-17.5) Hematocrit 33.3 % (39.0-53.0) Mean Corpuscular Volume 95 fL (79-100) Mean Corpuscular Hemoglobin 31 pg (25-35) Mean Corpuscular Hemoglobin Concent 33 g/dL (31-37) Red Cell Distribution Width 15.1 % (11.5-14.5) Platelet Count 69 x10^3/uL (140-400) Neutrophils (%) (Auto) 86 % (31-73) Lymphocytes (%) (Auto) 2 % (24-48) Monocytes (%) (Auto) 11 % (0-9) Eosinophils (%) (Auto) 0 % (0-3) Basophils (%) (Auto) 0 % (0-3) Neutrophils # (Auto) 4.9 x10^3/uL (1.8-7.7) Lymphocytes # (Auto) 0.1 x10^3/uL (1.0-4.8) Monocytes # (Auto) 0.6 x10^3/uL (0.0-1.1) Eosinophils # (Auto) 0.0 x10^3/uL (0.0-0.7) Basophils # (Auto) 0.0 x10^3/uL (0.0-0.2) Total Bilirubin 2.0 mg/dL (0.2-1.0) Direct Bilirubin 0.7 mg/dL (0.0-0.2) Aspartate Amino Transf (AST/SGOT) 45 U/L (15-37) Alanine Aminotransferase (ALT/SGPT) 40 U/L (16-63) Alkaline Phosphatase 126 U/L (46-116) Total Protein 6.5 g/dL (6.4-8.2) Albumin 2.4 g/dL (3.4-5.0) Medications Active Scripts Medications Dose Route/Sig Max Daily Dose Days Date Category Dose Instructions Imodium A-D (Loperamide HCl) 2 Mg Capsule 2 Mg PO PRN PRN 11/08/20 Reported Propranolol Hcl 80 Mg Cap.sa.24h 80 Mg PO DAILY 09/03/20 Reported Lisinopril 20 Mg Tablet 20 Mg PO DAILY 06/22/20 Reported Lasix (Furosemide) 40 Mg Tablet 40 Mg PO DAILY 06/22/20 Reported Metformin Hcl 1,000 Mg Tablet 1,000 Mg PO BIDWMEALS 06/22/20 Reported Toujeo Solostar (Insulin Glargine,Hum.rec.anlog) 300 Unit/1 Ml Insuln.pen 30 Unit SQ DAILY 06/22/20 Reported Novolog Flexpen (Insulin Aspart) 100 Unit/1 Ml Insuln.pen 25 Unit SQ TIDAC 01/07/14 Reported uses sliding scale based on Dexacom Duloxetine Hcl 30 Mg Capsule.dr 30 Mg PO DAILY 01/07/14 Reported Impression . IMPRESSION: 1. Acute hypoxic respiratory failure secondary to COVID-19 pneumonia. 2. No evidence of pulmonary embolism. 3. Abnormal CT chest with bilateral ground glass infiltrates, suggestive of COVID-19 pneumonia. 4. The patient with history of cirrhosis, status post TIPS procedure, which recently failed and has been requiring paracentesis regularly. 5. No significant tobacco history. 6. Markedly elevated D-dimer. We will need to follow closely. This could be secondary to multifactorial etiologies. 7. Leukopenia, now improving. Likely due to viral infection. Plan . RECOMMENDATIONS: Continue supplemental oxygen, currently on 100% nonrebreather Patient has completed full course of remdesivir Continue empiric antibiotics currently on doxycycline Continue dexamethasone for a full 10-day course with slow taper DVT/GI prophylaxis Patient is a DO NOT RESUSCITATE Discussed with LORRI KUMAR MD Nov 13, 2020 09:05
--- NOTE | 2020-11-13 09:39 | NUR ---
Pt uses own glucometer to check FSBS. ONDINA Chacon reported to this RN that FSBS was 122.
--- NOTE | 2020-11-13 09:54 | PDOC ---
Date of Service: DATE: 11/13/20 TIME: 09:49 Objective: Objective: 2 stools charted. Per IR - no paracentesis until COVID infection cleared. Vital Signs: Vital Signs Date Time Temp Pulse Resp B/P (MAP) Pulse Ox O2 Delivery O2 Flow Rate FiO2 11/13/20 08:56 62 184/86 11/13/20 07:31 Non-Rebreather 15.0 11/13/20 07:00 96.2 21 90 96.2 Labs: Laboratory Tests Test 11/12/20 11:43 11/12/20 12:05 11/12/20 21:45 11/13/20 08:04 O2 Saturation 79 % 96 % Arterial Blood pH 7.42 7.43 Arterial Blood pCO2 at Patient Temp 45 mmHg 40 mmHg Arterial Blood pO2 at Patient Temp 45 mmHg 86 mmHg Arterial Blood HCO3 28 mmol/L 26 mmol/L Arterial Blood Base Excess 3 mmol/L 2 mmol/L FiO2 40/ 5l nc 100% 15l nrb Prothrombin Time 21.9 SEC Prothromb Time International Ratio 1.9 Activated Partial Thromboplast Time 32 SEC Ammonia < 10 mcmol/L White Blood Count 5.7 x10^3/uL Red Blood Count 3.51 x10^6/uL Hemoglobin 11.0 g/dL Hematocrit 33.3 % Mean Corpuscular Volume 95 fL Mean Corpuscular Hemoglobin 31 pg Mean Corpuscular Hemoglobin Concent 33 g/dL Red Cell Distribution Width 15.1 % Platelet Count 69 x10^3/uL Neutrophils (%) (Auto) 86 % Lymphocytes (%) (Auto) 2 % Monocytes (%) (Auto) 11 % Eosinophils (%) (Auto) 0 % Basophils (%) (Auto) 0 % Neutrophils # (Auto) 4.9 x10^3/uL Lymphocytes # (Auto) 0.1 x10^3/uL Monocytes # (Auto) 0.6 x10^3/uL Eosinophils # (Auto) 0.0 x10^3/uL Basophils # (Auto) 0.0 x10^3/uL Sodium Level 145 mmol/L Potassium Level 4.3 mmol/L Chloride Level 107 mmol/L Carbon Dioxide Level 35 mmol/L Anion Gap 3 Blood Urea Nitrogen 22 mg/dL Creatinine 0.7 mg/dL Estimated GFR (Cockcroft-Gault) 109.9 Glucose Level 106 mg/dL Calcium Level 8.9 mg/dL Total Bilirubin 2.0 mg/dL Direct Bilirubin 0.7 mg/dL Aspartate Amino Transf (AST/SGOT) 45 U/L Alanine Aminotransferase (ALT/SGPT) 40 U/L Alkaline Phosphatase 126 U/L Total Protein 6.5 g/dL Albumin 2.4 g/dL PE: GEN: in COVID isolation - visual exam done - breakfast untouched LUNGS: non-rebreather mask 15L HEART: RR per chart/monitor ABD: stable distention/ascites NEURO/PSYCH: resting A/P: COVID-19 pneumonia Cirrhosis w/ occluded TIPS, ascites -- Continue support. Justicifation of Admission Dx: Justifications for Admission: Justification of Admission Dx: Comment: DAV LUNDY Nov 13, 2020 09:53
[2020-11-13 11:00] VITALS: BP 185/90
--- NOTE | 2020-11-13 11:27 | NUR ---
Lunchtime FSBS reported to this RN by ONDINA Chacon. FSBS 113.
[2020-11-13 15:00] VITALS: BP 156/74
[2020-11-13] MEDS: ENOXAPARIN 40 MG/0.4 ML SYRINGE. SQ SCH (16:00)
--- NOTE | 2020-11-13 17:22 | NUR ---
Dinner FSBS 130, reported by ONDINA Chacon.
--- NOTE | 2020-11-13 18:18 | NUR ---
This RN attempted to gain IV access x2 without success. Susan, nursing dredge operator supervisor notified to come attempt. Will pass along to night RN.
[2020-11-13 19:55] VITALS: BP 133/70
[2020-11-13] MEDS: FAMOTIDINE 20 MG TABLET. PO SCH (21:04)
[2020-11-13] MEDS: INSULIN GLARGINE SYRINGE. SQ SCH (21:06)
[2020-11-13] MEDS: LORazepam 0.5 MG TABLET PO PRN (21:06)
[2020-11-13 23:21] VITALS: BP 147/71
[2020-11-14 03:25] VITALS: BP 141/70
[2020-11-14 07:00] VITALS: BP 192/86
[2020-11-14] MEDS: INSULIN LISPRO 300 UNITS/3 ML VIAL. SQ SCH ×6 (08:00→16:58)
--- NOTE | 2020-11-14 08:40 | PDOC ---
PROGRESS NOTES Date of Service: DATE: 11/14/20 TIME: 08:40 Chief Complaint Chief Complaint impression Acute respiratory failure with Hypoxia - related to COVID 19 pneumonia, will also treat for likely gram negative pneumonia as well given his cirrhosis and risk factors.. Steroids and remdesivir ordered. Wean O2 as tolerated COVID-19 - with pneumonia, have d/w patient risks of remdesivir in liver disease, he wishes to have treatment, WORSENING HYPOXIA Cirrhosis - with ascites. S/p TIPS for variceal bleeding in 2013. GI following. Will continue diuretics and monitor. EGD and colonoscopy w/ Dr. Hunter in 06/2020 - path w/ collagenous colitis. Hyperammonemia - likely related to cirrhosis Elevated troponin - likely demand ischemia, will trend Anemia- likely of chronic disease. will trend Leukopenia - likely related to liver disease and covid 19, will monitor HTN HLD DM -on Toujeo and sliding scale, will convert to Lantus and increase sliding scale while he is on dexamethasone. Prostate cancer - s/p radiation therapy, in remission OA - stable Gout - not in flare currently Pancytopenia, elevated bili and AST Cirrhosis, h/o variceal bleeding and ascites, TIPS occluded collagenous colitis - takes Imodium PRN at home SEVERE PROTEIN-CALORIC MALNUTRITION PLAN FEN - ADA diet PPX - lovenox, will watch platelets DNR OF 11-12 D/W DR KRISTA Bueno - inpatient telemetry monitoring in COVID 19 isolation unit paracentesis today 11-12 CANCELLED no paracentesis until COVID infection cleared. 11-13 POOR INTAKE, D/W RN, will consult hospice, DNR// Pulmonary status worsening. 11-14 hospice consult for goals of care //D-dimer may be liver disease. CPM 38 MIN pt exam, chart review, > 50% of time spent with exam, chart review, pt care coordination History of Present Illness History of Present Illness Mr Orourke is a 75-year-old male w/ PMHx prostate ca (s/p radx 2014), depression, DM2, Cirrhosis who presents to [facility] ED with report of shortness of breath that occurred upon waking day of admission when getting up to go to the restroom. Patient was recently diagnosed with COVID-19 on 11/02/2020. Has cirrhosis with regular paracentesis, last paracentesis was approximately 1 week ago at [facility]. Patient reports his abdomen does not feel overly distended and does not think he needs paracentesis at this time. Reports subjective fever and chills. Denies trauma. Very short of breath. H/o cirrhosis reportedly from fatty liver and alcohol. H/o variceal bleeding and ascites/paracentesis in 2013. S/p TIPS then - no issues w/ bleeding or ascites since then until 08/2020 - TIPS thrombosed (see US here 09/17, also reports MRI by urologist in showed non-functioning TIPS). Paracentesis x 4 since then, last 7.4L on 11/01. Labs at [facility] with WBC 3.4, Hb 10.8, platelets 77, NA 136, K3.9, BUN 20, CR 1, glucose 137, magnesium 1.6, bilirubin 2.2, AST 60, ALT 45, INR 1.4, troponin 0 0.066, BNP 2592, albumin 2.6, ammonia 62, lactic acid 2.3, D-dimer 7.41 CTPA with no pulmonary embolism, bilateral diffuse groundglass opacities, cirrhosis with TIPS moderate ascites. EKG appears NSR at 88 bpm, some baseline artifact noted primarily to aVL, NO ST elevation, LAFB, QRS 86ms, QT/QTc 396/483ms Patient was found to be hypoxic upon EMS arrival. Improved with supplemental O2. Patient transferred to [place] for further care due to lack of GI resources at [facility]. Seen bedside with O2 saturations 91% on 3 L nasal cannula O2. Patient notes that he feels terrible. He is requested Covid treatment advised remdesivir and liver disease has not been well studied. He wishes to move forward with treatment. 11/09: Patient afebrile, breathing on 2 L nasal cannula. Remdesivir day 2/5. WBC 1.6 yesterday, WBC 1.3 today. This could be seen in viral infections or hypersplenism secondary to cirrhosis. Continuetomonitor. Continue Rocephin, doxy, steroids, and supportive care. 11/10: Afebrile, breathing 2 L nasal cannula. WBC slightly improved. Liver enzymes are not significantly elevated, will continue to monitor. Continue treatment with remdesivir, steroids, antibiotics. 11/11: Patient breathing on 6 L nasal cannula. Afebrile. LFTs good. Continue remdesivir, steroids, antibiotics. 11-12 INC HYPOXIA ON NRB 15 LITERS NC , NOW DNR DR VELASCO CONSULTED Pancytopenia, elevated bili and AST (better) Cirrhosis, h/o variceal bleeding and ascites, TIPS occluded collagenous colitis - takes Imodium PRN at home 1 HOSPICE intake discussed, poor prognosis, D/W CASE MGT 11-14 hospice consult for goals of care today Vitals Vitals Vital Signs Date Time Temp Pulse Resp B/P (MAP) Pulse Ox O2 Delivery O2 Flow Rate FiO2 11/14/20 07:28 97 BiPAP/CPAP 11/14/20 03:25 97.5 57 27 141/70 (93) 97.5 11/13/20 20:00 15.0 Physical Exam General: Alert, Oriented X3, Cooperative, mild distress Heart: Regular rate Lungs: Clear, Other Abdomen: Normal bowel sounds, Soft, Other (Fluid wave) Extremities: No clubbing, No cyanosis, No tenderness/swelling Skin: No rashes, No breakdown, No significant lesion Comment Review of Relevant I have reviewed the following items amador (where applicable) has been applied. Labs Laboratory Tests Test 11/12/20 11:43 11/12/20 12:05 11/12/20 21:45 11/13/20 08:04 O2 Saturation 79 % (92-99) 96 % (92-99) Arterial Blood pH 7.42 (7.35-7.45) 7.43 (7.35-7.45) Arterial Blood pCO2 at Patient Temp 45 mmHg (35-46) 40 mmHg (35-46) Arterial Blood pO2 at Patient Temp 45 mmHg (65-108) 86 mmHg (65-108) Arterial Blood HCO3 28 mmol/L (21-28) 26 mmol/L (21-28) Arterial Blood Base Excess 3 mmol/L (-3-3) 2 mmol/L (-3-3) FiO2 40/ 5l nc 100% 15l nrb Prothrombin Time 21.9 SEC (11.7-14.0) Prothromb Time International Ratio 1.9 (0.8-1.1) Activated Partial Thromboplast Time 32 SEC (24-38) Ammonia < 10 mcmol/L (11-34) White Blood Count 5.7 x10^3/uL (4.0-11.0) Red Blood Count 3.51 x10^6/uL (4.30-5.70) Hemoglobin 11.0 g/dL (13.0-17.5) Hematocrit 33.3 % (39.0-53.0) Mean Corpuscular Volume 95 fL (79-100) Mean Corpuscular Hemoglobin 31 pg (25-35) Mean Corpuscular Hemoglobin Concent 33 g/dL (31-37) Red Cell Distribution Width 15.1 % (11.5-14.5) Platelet Count 69 x10^3/uL (140-400) Neutrophils (%) (Auto) 86 % (31-73) Lymphocytes (%) (Auto) 2 % (24-48) Monocytes (%) (Auto) 11 % (0-9) Eosinophils (%) (Auto) 0 % (0-3) Basophils (%) (Auto) 0 % (0-3) Neutrophils # (Auto) 4.9 x10^3/uL (1.8-7.7) Lymphocytes # (Auto) 0.1 x10^3/uL (1.0-4.8) Monocytes # (Auto) 0.6 x10^3/uL (0.0-1.1) Eosinophils # (Auto) 0.0 x10^3/uL (0.0-0.7) Basophils # (Auto) 0.0 x10^3/uL (0.0-0.2) D-Dimer (Mara) > 20.00 ug/mlFEU Sodium Level 145 mmol/L (136-145) Potassium Level 4.3 mmol/L (3.5-5.1) Chloride Level 107 mmol/L (98-107) Carbon Dioxide Level 35 mmol/L (21-32) Anion Gap 3 (6-14) Blood Urea Nitrogen 22 mg/dL (8-26) Creatinine 0.7 mg/dL (0.7-1.3) Estimated GFR (Cockcroft-Gault) 109.9 Glucose Level 106 mg/dL (70-99) Calcium Level 8.9 mg/dL (8.5-10.1) Magnesium Level 2.0 mg/dL (1.8-2.4) Ferritin 435 ng/mL (26-388) Total Bilirubin 2.0 mg/dL (0.2-1.0) Direct Bilirubin 0.7 mg/dL (0.0-0.2) Aspartate Amino Transf (AST/SGOT) 45 U/L (15-37) Alanine Aminotransferase (ALT/SGPT) 40 U/L (16-63) Alkaline Phosphatase 126 U/L (46-116) Lactate Dehydrogenase 594 U/L (85-227) Creatine Kinase 70 U/L (39-308) FS-Hce-U-Type Natriuretic Peptide 3757 pg/mL (0-449) Total Protein 6.5 g/dL (6.4-8.2) Albumin 2.4 g/dL (3.4-5.0) Medications Current Medications Furosemide (Lasix) 40 mg DAILY PO Last administered on 11/13/20at 08:57; Start 11/09/20 at 09:00 Lactulose (Lactulose) 20 gm DAILY PO ; Start 11/09/20 at 09:00; Stop 11/09/20 at 10:20; Status DC Lactulose (Lactulose) 20 gm PRN DAILY PRN PO CONSTIPATION; Start 11/08/20 at 12:15 Dexamethasone Sodium Phosphate (Decadron) 6 mg DAILY IVP Last administered on 11/13/20at 08:57; Start 11/09/20 at 09:00 Dexamethasone Sodium Phosphate (Decadron) 6 mg 1X ONCE IVP Last administered on 11/08/20at 13:10; Start 11/08/20 at 12:30; Stop 11/08/20 at 12:35; Status DC Ceftriaxone Sodium (Rocephin) 1 gm Q24H IVP Last administered on 11/12/20at 13 :00; Start 11/08/20 at 13:00; Stop 11/12/20 at 13:01; Status DC Doxycycline Hyclate 100 mg/ Dextrose 100 ml @ 50 mls/hr Q12HR IV Last administered on 11/13/20at 09:00; Start 11/08/20 at 21:00; Stop 11/13/20 at 20:59; Status DC Ondansetron HCl (Zofran) 4 mg PRN Q6HRS PRN IVP NAUSEA/VOMITING Last administered on 11/09/20at 20:13; Start 11/08/20 at 12:45 Al Hydroxide/Mg Hydroxide (Mylanta Plus Xs) 30 ml PRN Q3HRS PRN PO HEARTBURN / GAS; Start 11/08/20 at 12:45 Calcium Carbonate/ Glycine (Tums) 500 mg PRN Q3HRS PRN PO UPSET STOMACH; Start 11/08/20 at 12:45 Acetaminophen (Tylenol) 650 mg PRN Q6HRS PRN PO Headaches, Temp > 101.5F; Start 11/08/20 at 12:45 Bisacodyl (Dulcolax Supp) 10 mg PRN DAILY PRN DC CONSTIPATION; Start 11/08/20 at 12:45 Enoxaparin Sodium (Lovenox 40mg Syringe) 40 mg Q24H SQ Last administered on 11/12/20at 17:24; Start 11/08/20 at 16:00 Duloxetine HCl (Cymbalta) 30 mg DAILY PO Last administered on 11/13/20at 08:57; Start 11/09/20 at 09:00 Insulin Human Lispro (HumaLOG) 8 units TIDWMEALS SQ Last administered on 11/12/20at 12:00; Start 11/08/20 at 17:00 Insulin Glargine (Lantus Syringe) 30 unit QHS SQ Last administered on 11/13/20at 21:06; Start 11/08/20 at 21:00 Insulin Human Lispro (HumaLOG) 0-9 UNITS TIDWMEALS SQ Last administered on 11/11at 17:41; Start 11/08/20 at 17:00 Dextrose (Dextrose 50%-Water Syringe) 12.5 gm PRN Q15MIN PRN IV SEE COMMENTS; Start 11/08/20 at 14:15 Remdesivir 200 mg/ Sodium Chloride 210 ml @ 210 mls/hr 1X ONCE IV Last administered on 11/08/20at 15:51; Start 11/08/20 at 15:00; Stop 11/08/20 at 15:59; Status DC Remdesivir 100 mg/ Sodium Chloride 230 ml @ 460 mls/hr Q24H IV Last adminis tered on 11/12/20at 17:24; Start 11/09/20 at 15:00; Stop 11/12/20 at 15:29; Status DC Zinc Sulfate (Orazinc) 220 mg DAILY PO Last administered on 11/13/20at 08:57; Start 11/08/20 at 14:45 Thiamine Mononitrate (Vitamin B-1) 100 mg DAILY PO Last administered on 11/13/20at 08:57; Start 11/08/20 at 14:45 Guaifenesin (Robitussin Dm) 10 ml PRN Q6HRS PRN PO COUGH; Start 11/08/20 at 14:45 Propranolol HCl (Inderal La) 80 mg DAILY PO Last administered on 11/13/20at 08:56; Start 11/08/20 at 14:45 Albuterol Sulfate (Ventolin Hfa) 2 puff PRN Q4HRS PRN INH SHORTNESS OF BREATH Last administered on 11/12/20at 08:18; Start 11/08/20 at 15:15 Insulin Human Lispro (HumaLOG) 13 units 1X ONCE SQ Last administered on 11/08/20at 21:51; Start 11/08/20 at 21:45; Stop 11/08/20 at 21:53; Status DC Famotidine (Pepcid) 20 mg QHS PO Last administered on 11/13/20at 21:04; Start 11/09/20 at 21:00 Loperamide HCl (Imodium) 2 mg PRN Q15MIN PRN PO DIARRHEA Last administered on 11/10/20at 22:34; Start 11/10/20 at 21:45 Hydralazine HCl (Apresoline Inj) 10 mg PRN Q2HRS PRN IVP ELEVATED BP, SEE COMMENTS Last administered on 11/12/20at 20:31; Start 11/11/20 at 00:15 Lorazepam (Ativan) 0.25 mg 1X ONCE PO Last administered on 11/12/20at 20:27; Start 11/12/20 at 20:15; Stop 11/12/20 at 20:16; Status DC Lorazepam (Ativan) 0.25 mg PRN Q6HRS PRN PO ANXIETY / AGITATION Last administered on 11/13/20at 21:06; Start 11/12/20 at 23:45 Active Scripts Active Reported Imodium A-D (Loperamide HCl) 2 Mg Capsule 2 Mg PO PRN PRN Propranolol Hcl 80 Mg Cap.sa.24h 80 Mg PO DAILY Lisinopril 20 Mg Tablet 20 Mg PO DAILY Lasix (Furosemide) 40 Mg Tablet 40 Mg PO DAILY Metformin Hcl 1,000 Mg Tablet 1,000 Mg PO BIDWMEALS Toujeo Solostar (Insulin Glargine,Hum.rec.anlog) 300 Unit/1 Ml Insuln.pen 30 Unit SQ DAILY Novolog Flexpen (Insulin Aspart) 100 Unit/1 Ml Insuln.pen 25 Unit SQ TIDAC uses sliding scale based on Dexacom Duloxetine Hcl 30 Mg Capsule.dr 30 Mg PO DAILY Vitals/I & O Vital Sign - Last 24 Hours 11/13/20 11/13/20 11/13/20 11/13/20 08:56 11:00 15:00 17:58 Temp 97.2 96.3 97.2 96.3 Pulse 62 62 66 Resp 20 20 B/P (MAP) 184/86 185/90 (121) 156/74 (101) Pulse Ox 89 88 94 O2 Delivery NonRebreather Mask NonRebreather Mask BiPAP/CPAP O2 Flow Rate 15.0 15.0 11/13/20 11/13/20 11/13/20 11/13/20 19:55 20:00 20:00 23:21 Temp 97.8 97.4 97.8 97.4 Pulse 58 58 Resp 20 27 B/P (MAP) 133/70 (91) 147/71 (96) Pulse Ox 94 97 O2 Delivery NonRebreather Mask Bi-pap Room Air O2 Flow Rate 15.0 15.0 11/14/20 11/14/20 11/14/20 11/14/20 00:52 03:25 04:45 07:28 Temp 97.5 97.5 Pulse 57 Resp 27 B/P (MAP) 141/70 (93) Pulse Ox 96 97 96 97 O2 Delivery BiPAP/CPAP BiPAP/CPAP BiPAP/CPAP BiPAP/CPAP Intake and Output 11/13/20 11/13/20 11/14/20 14:59 22:59 06:59 Intake Total 100 ml 210 ml Balance 100 ml 210 ml Nutrition Consultation Dietary Evaluation: Recommendations by RD: Dietary education by RD, Increase Calorie Intake, Protein supplementation Comments: REC continue cardiac ( low Na ) diet , ADA offer snacks/supplements from unit prn will send Glucerna supplements tid Expected Outcomes/Goals: to meet >75% est nutr needs- not met, goal ongoing Malnutrition Findings: Food and Nutrition Intake (Sev: <50% est energy req 5days Weight Status: Overweight Fluid Accumulation (Severe): Severe Justicifation of Admission Dx: Justifications for Admission: Justification of Admission Dx: Comment: RENNY ARCINIEGA MD Nov 14, 2020 08:40
[2020-11-14 08:47] LABS: BASO % 0 % (0-3); EOS % 0 % (0-3); HEMATOCRIT 33.9 % (39.0-53.0); HEMOGLOBIN 11.2 g/dL (13.0-17.5); LYMPH # 0.1 x10^3/uL (1.0-4.8); LYMPH % 3 % (24-48); MEAN CORPUSCULAR HEMOGLOBIN 32 pg (25-35); MEAN CORPUSCULAR HGB CONC 33 g/dL (31-37); MEAN CORPUSCULAR VOLUME 96 fL (79-100); MONO # 0.4 x10^3/uL (0.0-1.1); MONO % 12 % (0-9); NEUT # 3.2 x10^3/uL (1.8-7.7); NEUT % 85 % (31-73); PLATELET COUNT 56 x10^3/uL (140-400); RED BLOOD COUNT 3.54 x10^6/uL (4.30-5.70); RED CELL DISTRIBUTION WIDTH 15.2 % (11.5-14.5); WHITE BLOOD COUNT 3.8 x10^3/uL (4.0-11.0)
[2020-11-14] MEDS: PROPRANOLOL ER 80 MG CAP.ER.24H. PO SCH ×3 (09:00→09:33)
[2020-11-14] MEDS: DEXAMETHASONE SOD PHOS 4 MG/ML VIAL IVP SCH (09:32)
[2020-11-14] MEDS: ZINC SULFATE 220 MG CAPSULE. PO SCH (09:32)
[2020-11-14] MEDS: DULoxetine HCL 30 MG CAPSULE.DR PO SCH (09:33)
[2020-11-14] MEDS: THIAMINE 100 MG TABLET. PO SCH (09:33)
[2020-11-14] MEDS: FUROSEMIDE 40 MG TABLET. PO SCH (09:33)
--- NOTE | 2020-11-14 09:49 | PDOC ---
Date of Service: DATE: 11/14/20 TIME: 09:45 Objective: Objective: Reviewed chart. Vital Signs: Vital Signs Date Time Temp Pulse Resp B/P (MAP) Pulse Ox O2 Delivery O2 Flow Rate FiO2 11/14/20 09:33 54 192/86 11/14/20 07:28 97 BiPAP/CPAP 11/14/20 07:00 95.5 20 95.5 11/13/20 20:00 15.0 Labs: Laboratory Tests Test 11/14/20 08:00 White Blood Count 3.8 x10^3/uL Red Blood Count 3.54 x10^6/uL Hemoglobin 11.2 g/dL Hematocrit 33.9 % Mean Corpuscular Volume 96 fL Mean Corpuscular Hemoglobin 32 pg Mean Corpuscular Hemoglobin Concent 33 g/dL Red Cell Distribution Width 15.2 % Platelet Count 56 x10^3/uL Neutrophils (%) (Auto) 85 % Lymphocytes (%) (Auto) 3 % Monocytes (%) (Auto) 12 % Eosinophils (%) (Auto) 0 % Basophils (%) (Auto) 0 % Neutrophils # (Auto) 3.2 x10^3/uL Lymphocytes # (Auto) 0.1 x10^3/uL Monocytes # (Auto) 0.4 x10^3/uL Eosinophils # (Auto) 0.0 x10^3/uL Basophils # (Auto) 0.0 x10^3/uL D-dimer >20 yesterday PE: GEN: in COVID isolation, visual exam done LUNGS: BiPAP HEART: RR ABD: distention NEURO/PSYCH: sleeping A/P: COVID-19 pneumonia - now on BiPAP Cirrhosis w/ occluded TIPS, pancytopenia, ascites HTN -- Continue support. Justicifation of Admission Dx: Justifications for Admission: Justification of Admission Dx: Comment: DAV LUNDY Nov 14, 2020 09:49
[2020-11-14 11:00] VITALS: BP 158/158
--- NOTE | 2020-11-14 11:41 | PDOC ---
PULMONARY PROGRESS NOTES DATE: 11/14/20 TIME: 11:39 Subjective Patient is now on 100% BiPAP Afebrile Vitals Vital Signs Date Time Temp Pulse Resp B/P (MAP) Pulse Ox O2 Delivery O2 Flow Rate FiO2 11/14/20 11:00 96.8 59 20 158/158 (158) 94 BiPAP/CPAP 96.8 11/13/20 20:00 15.0 Comments Patient is seen during , visual exam performed Regular rate and rhythm 100% nonrebreather mild increase in resp. effort no edema or rash Lungs: Crackles Labs Laboratory Tests Test 11/12/20 11:43 11/12/20 12:05 11/12/20 21:45 11/13/20 08:04 O2 Saturation 79 % (92-99) 96 % (92-99) Arterial Blood pH 7.42 (7.35-7.45) 7.43 (7.35-7.45) Arterial Blood pCO2 at Patient Temp 45 mmHg (35-46) 40 mmHg (35-46) Arterial Blood pO2 at Patient Temp 45 mmHg (65-108) 86 mmHg (65-108) Arterial Blood HCO3 28 mmol/L (21-28) 26 mmol/L (21-28) Arterial Blood Base Excess 3 mmol/L (-3-3) 2 mmol/L (-3-3) FiO2 40/ 5l nc 100% 15l nrb Prothrombin Time 21.9 SEC (11.7-14.0) Prothromb Time International Ratio 1.9 (0.8-1.1) Activated Partial Thromboplast Time 32 SEC (24-38) Ammonia < 10 mcmol/L (11-34) White Blood Count 5.7 x10^3/uL (4.0-11.0) Red Blood Count 3.51 x10^6/uL (4.30-5.70) Hemoglobin 11.0 g/dL (13.0-17.5) Hematocrit 33.3 % (39.0-53.0) Mean Corpuscular Volume 95 fL (79-100) Mean Corpuscular Hemoglobin 31 pg (25-35) Mean Corpuscular Hemoglobin Concent 33 g/dL (31-37) Red Cell Distribution Width 15.1 % (11.5-14.5) Platelet Count 69 x10^3/uL (140-400) Neutrophils (%) (Auto) 86 % (31-73) Lymphocytes (%) (Auto) 2 % (24-48) Monocytes (%) (Auto) 11 % (0-9) Eosinophils (%) (Auto) 0 % (0-3) Basophils (%) (Auto) 0 % (0-3) Neutrophils # (Auto) 4.9 x10^3/uL (1.8-7.7) Lymphocytes # (Auto) 0.1 x10^3/uL (1.0-4.8) Monocytes # (Auto) 0.6 x10^3/uL (0.0-1.1) Eosinophils # (Auto) 0.0 x10^3/uL (0.0-0.7) Basophils # (Auto) 0.0 x10^3/uL (0.0-0.2) D-Dimer (Mara) > 20.00 ug/mlFEU Sodium Level 145 mmol/L (136-145) Potassium Level 4.3 mmol/L (3.5-5.1) Chloride Level 107 mmol/L (98-107) Carbon Dioxide Level 35 mmol/L (21-32) Anion Gap 3 (6-14) Blood Urea Nitrogen 22 mg/dL (8-26) Creatinine 0.7 mg/dL (0.7-1.3) Estimated GFR (Cockcroft-Gault) 109.9 Glucose Level 106 mg/dL (70-99) Calcium Level 8.9 mg/dL (8.5-10.1) Magnesium Level 2.0 mg/dL (1.8-2.4) Ferritin 435 ng/mL (26-388) Total Bilirubin 2.0 mg/dL (0.2-1.0) Direct Bilirubin 0.7 mg/dL (0.0-0.2) Aspartate Amino Transf (AST/SGOT) 45 U/L (15-37) Alanine Aminotransferase (ALT/SGPT) 40 U/L (16-63) Alkaline Phosphatase 126 U/L (46-116) Lactate Dehydrogenase 594 U/L (85-227) Creatine Kinase 70 U/L (39-308) GR-Uxt-E-Type Natriuretic Peptide 3757 pg/mL (0-449) Total Protein 6.5 g/dL (6.4-8.2) Albumin 2.4 g/dL (3.4-5.0) Test 11/14/20 08:00 White Blood Count 3.8 x10^3/uL (4.0-11.0) Red Blood Count 3.54 x10^6/uL (4.30-5.70) Hemoglobin 11.2 g/dL (13.0-17.5) Hematocrit 33.9 % (39.0-53.0) Mean Corpuscular Volume 96 fL (79-100) Mean Corpuscular Hemoglobin 32 pg (25-35) Mean Corpuscular Hemoglobin Concent 33 g/dL (31-37) Red Cell Distribution Width 15.2 % (11.5-14.5) Platelet Count 56 x10^3/uL (140-400) Neutrophils (%) (Auto) 85 % (31-73) Lymphocytes (%) (Auto) 3 % (24-48) Monocytes (%) (Auto) 12 % (0-9) Eosinophils (%) (Auto) 0 % (0-3) Basophils (%) (Auto) 0 % (0-3) Neutrophils # (Auto) 3.2 x10^3/uL (1.8-7.7) Lymphocytes # (Auto) 0.1 x10^3/uL (1.0-4.8) Monocytes # (Auto) 0.4 x10^3/uL (0.0-1.1) Eosinophils # (Auto) 0.0 x10^3/uL (0.0-0.7) Basophils # (Auto) 0.0 x10^3/uL (0.0-0.2) Laboratory Tests Test 11/14/20 08:00 White Blood Count 3.8 x10^3/uL (4.0-11.0) Red Blood Count 3.54 x10^6/uL (4.30-5.70) Hemoglobin 11.2 g/dL (13.0-17.5) Hematocrit 33.9 % (39.0-53.0) Mean Corpuscular Volume 96 fL (79-100) Mean Corpuscular Hemoglobin 32 pg (25-35) Mean Corpuscular Hemoglobin Concent 33 g/dL (31-37) Red Cell Distribution Width 15.2 % (11.5-14.5) Platelet Count 56 x10^3/uL (140-400) Neutrophils (%) (Auto) 85 % (31-73) Lymphocytes (%) (Auto) 3 % (24-48) Monocytes (%) (Auto) 12 % (0-9) Eosinophils (%) (Auto) 0 % (0-3) Basophils (%) (Auto) 0 % (0-3) Neutrophils # (Auto) 3.2 x10^3/uL (1.8-7.7) Lymphocytes # (Auto) 0.1 x10^3/uL (1.0-4.8) Monocytes # (Auto) 0.4 x10^3/uL (0.0-1.1) Eosinophils # (Auto) 0.0 x10^3/uL (0.0-0.7) Basophils # (Auto) 0.0 x10^3/uL (0.0-0.2) Medications Active Scripts Medications Dose Route/Sig Max Daily Dose Days Date Category Dose Instructions Imodium A-D (Loperamide HCl) 2 Mg Capsule 2 Mg PO PRN PRN 11/08/20 Reported Propranolol Hcl 80 Mg Cap.sa.24h 80 Mg PO DAILY 09/03/20 Reported Lisinopril 20 Mg Tablet 20 Mg PO DAILY 06/22/20 Reported Lasix (Furosemide) 40 Mg Tablet 40 Mg PO DAILY 06/22/20 Reported Metformin Hcl 1,000 Mg Tablet 1,000 Mg PO BIDWMEALS 06/22/20 Reported Toujeo Solostar (Insulin Glargine,Hum.rec.anlog) 300 Unit/1 Ml Insuln.pen 30 Unit SQ DAILY 06/22/20 Reported Novolog Flexpen (Insulin Aspart) 100 Unit/1 Ml Insuln.pen 25 Unit SQ TIDAC 01/07/14 Reported uses sliding scale based on Dexacom Duloxetine Hcl 30 Mg Capsule.dr 30 Mg PO DAILY 01/07/14 Reported Impression . IMPRESSION: 1. Acute hypoxic respiratory failure secondary to COVID-19 pneumonia. 2. No evidence of pulmonary embolism. 3. Abnormal CT chest with bilateral ground glass infiltrates, suggestive of COVID-19 pneumonia. 4. The patient with history of cirrhosis, status post TIPS procedure, which recently failed and has been requiring paracentesis regularly. 5. No significant tobacco history. 6. Markedly elevated D-dimer. We will need to follow closely. This could be secondary to multifactorial etiologies. 7. Leukopenia, now improving. Likely due to viral infection. Plan . RECOMMENDATIONS: Continue supplemental oxygen, currently on 100% BiPAP Markedly elevated D-dimer, will obtain CTA of chest, treatment dose Lovenox in the interim Patient has completed full course of remdesivir Follow GI recommendations Continue dexamethasone for a full 10-day course with slow taper Is completed full course of doxycycline Physical therapy/Occupational Therapy DVT/GI prophylaxis Patient is a DO NOT RESUSCITATE Discussed with RN Poor prognosis LORRI VELASCO MD Nov 14, 2020 11:41
--- NOTE | 2020-11-14 12:09 | NUR ---
YUE following this BPCI patient today. SW asked to call pt's and ask about hospice. Roxana spoke with the on 11/13 and declined per chart review. YUE spoke with pt's today, 11/14 and she is agreeable to a hospice referral for evaluation. Pt's remains hopeful that pt will get better and be able to come home with HH. Pt's stated no preference in hospice provider. SW obtained order for evaluation and faxed referral to [facility]. Patient choice of vendor form competed. Pt's asked for a call from physician. Dr. Carpenter notified. Addendum: 11/14/20 at 1243 by FREDI TURNER Spoke with Constance who stated pt meets GIP criteria if is willing to withdraw care.
--- NOTE | 2020-11-14 12:09 | NUR ---
Pt refused Blood sugar check, and pt did not eat any lunch. Lunch dose Insulin was held. Will continue to monitor.
--- NOTE | 2020-11-14 13:19 | RAD ---
EXAM: AP View of the chest DATE: 11/14/2020 12:58 PM INDICATION: PNEUMONIA COMPARISON: No Prior FINDINGS: The heart is not enlarged. Aorta is tortuous with atherosclerotic calcifications. Diffuse bilateral parenchymal airspace opacities are seen, particularly prominent peripherally in the left lung. Trace left pleural effusion. No definite pneumothorax. IMPRESSION: Diffuse bilateral parenchymal airspace opacities, likely multifocal consolidative process such as pne umonia. Electronically signed by: Hola Joe MD (11/14/2020 1:17 PM) ANA
[2020-11-14 15:04] VITALS: BP 188/87
[2020-11-14 19:00] VITALS: BP 113/68
[2020-11-14] MEDS: FAMOTIDINE 20 MG TABLET. PO SCH (21:29)
[2020-11-14] MEDS: INSULIN GLARGINE SYRINGE. SQ SCH (21:37)
[2020-11-14 23:16] VITALS: BP 130/63
[2020-11-15 03:34] VITALS: BP 130/62
[2020-11-15 07:00] VITALS: BP 156/74
[2020-11-15] MEDS: DEXAMETHASONE SOD PHOS 4 MG/ML VIAL IVP SCH (07:59)
[2020-11-15] MEDS: ZINC SULFATE 220 MG CAPSULE. PO SCH (08:00)
[2020-11-15] MEDS: THIAMINE 100 MG TABLET. PO SCH (08:00)
[2020-11-15] MEDS: DULoxetine HCL 30 MG CAPSULE.DR PO SCH (08:01)
[2020-11-15] MEDS: FUROSEMIDE 40 MG TABLET. PO SCH (08:01)
[2020-11-15] MEDS: INSULIN LISPRO 300 UNITS/3 ML VIAL. SQ SCH ×6 (08:02→17:00)
[2020-11-15 08:43] LABS: BASO % 0 % (0-3); EOS % 0 % (0-3); HEMATOCRIT 33.5 % (39.0-53.0); HEMOGLOBIN 11.1 g/dL (13.0-17.5); LYMPH # 0.1 x10^3/uL (1.0-4.8); LYMPH % 3 % (24-48); MEAN CORPUSCULAR HEMOGLOBIN 32 pg (25-35); MEAN CORPUSCULAR HGB CONC 33 g/dL (31-37); MEAN CORPUSCULAR VOLUME 95 fL (79-100); MONO # 0.5 x10^3/uL (0.0-1.1); MONO % 13 % (0-9); NEUT % 84 % (31-73); PLATELET COUNT 57 x10^3/uL (140-400); RED BLOOD COUNT 3.51 x10^6/uL (4.30-5.70); RED CELL DISTRIBUTION WIDTH 15.2 % (11.5-14.5); WHITE BLOOD COUNT 3.6 x10^3/uL (4.0-11.0)
--- NOTE | 2020-11-15 08:57 | PDOC ---
PULMONARY PROGRESS NOTES DATE: 11/15/20 TIME: 08:55 Subjective Patient is now on 100% BiPAP Afebrile more awake today Vitals Vital Signs Date Time Temp Pulse Resp B/P (MAP) Pulse Ox O2 Delivery O2 Flow Rate FiO2 11/15/20 07:00 97.2 63 24 156/74 (101) 98 BiPAP/CPAP 97.2 11/14/20 19:31 15.0 Comments Patient is seen during - pandemic, visual exam performed Regular rate and rhythm BIPAP no resp. distress no edema or rash Lungs: Crackles Labs Laboratory Tests Test 11/14/20 08:00 11/14/20 19:17 11/15/20 07:10 White Blood Count 3.8 x10^3/uL (4.0-11.0) Red Blood Count 3.54 x10^6/uL (4.30-5.70) Hemoglobin 11.2 g/dL (13.0-17.5) Hematocrit 33.9 % (39.0-53.0) Mean Corpuscular Volume 96 fL (79-100) Mean Corpuscular Hemoglobin 32 pg (25-35) Mean Corpuscular Hemoglobin Concent 33 g/dL (31-37) Red Cell Distribution Width 15.2 % (11.5-14.5) Platelet Count 56 x10^3/uL (140-400) Neutrophils (%) (Auto) 85 % (31-73) Lymphocytes (%) (Auto) 3 % (24-48) Monocytes (%) (Auto) 12 % (0-9) Eosinophils (%) (Auto) 0 % (0-3) Basophils (%) (Auto) 0 % (0-3) Neutrophils # (Auto) 3.2 x10^3/uL (1.8-7.7) Lymphocytes # (Auto) 0.1 x10^3/uL (1.0-4.8) Monocytes # (Auto) 0.4 x10^3/uL (0.0-1.1) Eosinophils # (Auto) 0.0 x10^3/uL (0.0-0.7) Basophils # (Auto) 0.0 x10^3/uL (0.0-0.2) Glucose (Fingerstick) 234 mg/dL (70-99) 195 mg/dL (70-99) Laboratory Tests Test 11/14/20 19:17 11/15/20 07:10 Glucose (Fingerstick) 234 mg/dL (70-99) 195 mg/dL (70-99) Medications Active Scripts Medications Dose Route/Sig Max Daily Dose Days Date Category Dose Instructions Imodium A-D (Loperamide HCl) 2 Mg Capsule 2 Mg PO PRN PRN 11/08/20 Reported Propranolol Hcl 80 Mg Cap.sa.24h 80 Mg PO DAILY 09/03/20 Reported Lisinopril 20 Mg Tablet 20 Mg PO DAILY 06/22/20 Reported Lasix (Furosemide) 40 Mg Tablet 40 Mg PO DAILY 06/22/20 Reported Metformin Hcl 1,000 Mg Tablet 1,000 Mg PO BIDWMEALS 06/22/20 Reported Toujeo Solostar (Insulin Glargine,Hum.rec.anlog) 300 Unit/1 Ml Insuln.pen 30 Unit SQ DAILY 06/22/20 Reported Novolog Flexpen (Insulin Aspart) 100 Unit/1 Ml Insuln.pen 25 Unit SQ TIDAC 01/07/14 Reported uses sliding scale based on Dexacom Duloxetine Hcl 30 Mg Capsule.dr 30 Mg PO DAILY 01/07/14 Reported Impression . IMPRESSION: 1. Acute hypoxic respiratory failure secondary to COVID-19 pneumonia. 2. No evidence of pulmonary embolism. 3. Abnormal CT chest with bilateral ground glass infiltrates, suggestive of COVID-19 pneumonia. 4. The patient with history of cirrhosis, status post TIPS procedure, which recently failed and has been requiring paracentesis regularly. 5. No significant tobacco history. 6. Markedly elevated D-dimer. We will need to follow closely. This could be secondary to multifactorial etiologies. 7. Leukopenia, now improving. Likely due to viral infection. Plan . RECOMMENDATIONS: Continue supplemental oxygen, currently on 100% BiPAP, trial high flow N/C or NRB Markedly elevated D-dimer, will obtain CTA of chest, treatment dose Lovenox Patient has completed full course of remdesivir Follow GI recommendations Continue dexamethasone for a full 10-day course with slow taper Physical therapy/Occupational Therapy DVT/GI prophylaxis Patient is a DO NOT RESUSCITATE Discussed with RN Poor prognosis LORRI VELASCO MD Nov 15, 2020 08:57
[2020-11-15] MEDS ORDERED: DEXAMETHASONE SOD PHOS 4 MG/ML VIAL IVP SCH (09:00)
[2020-11-15 09:11] LABS: ALBUMIN 2.2 g/dL (3.4-5.0); ALBUMIN/GLOBULIN RATIO 0.5 (1.0-1.7); CALCIUM 8.9 mg/dL (8.5-10.1); CREATININE 0.9 mg/dL (0.7-1.3); GFR 82.3; POTASSIUM 4.6 mmol/L (3.5-5.1); TOTAL BILIRUBIN 2.3 mg/dL (0.2-1.0); TOTAL PROTEIN 6.5 g/dL (6.4-8.2)
--- NOTE | 2020-11-15 09:59 | PDOC ---
Date of Service: DATE: 11/15/20 TIME: 09:57 Objective: Objective: D/w nurse - sats 95 w/ BiPAP, 74 without. Reviewed chart - Hospice discussion? Vital Signs: Vital Signs Date Time Temp Pulse Resp B/P (MAP) Pulse Ox O2 Delivery O2 Flow Rate FiO2 11/15/20 07:00 97.2 63 24 156/74 (101) 98 BiPAP/CPAP 97.2 11/14/20 19:31 15.0 Labs: Laboratory Tests Test 11/14/20 19:17 11/15/20 07:10 Glucose (Fingerstick) 234 mg/dL (70-99) 195 mg/dL (70-99) PE: GEN: NAD LUNGS: BiPAP off currently HEART: RRR ABD: round, some distention, ascites NEURO/PSYCH: A & O x 3 A/P: COVID-19 infection, resp failure Cirrhosis w/ occluded TIPS, pancytopenia, ascites - no paracentesis til COVID cleared per IR -- Continue support. Justicifation of Admission Dx: Justifications for Admission: Justification of Admission Dx: Comment: DAV LUNDY Nov 15, 2020 09:59
[2020-11-15 11:45] VITALS: BP 132/60
--- NOTE | 2020-11-15 12:16 | PDOC ---
PROGRESS NOTES Date of Service: DATE: 11/15/20 TIME: 12:16 Chief Complaint Chief Complaint impression Acute respiratory failure with Hypoxia - related to COVID 19 pneumonia, will also treat for likely gram negative pneumonia as well given his cirrhosis and risk factors.. Steroids and remdesivir ordered. Wean O2 as tolerated COVID-19 - with pneumonia, have d/w patient risks of remdesivir in liver disease, he wishes to have treatment, WORSENING HYPOXIA Cirrhosis - with ascites. S/p TIPS for variceal bleeding in 2013. GI following. Will continue diuretics and monitor. EGD and colonoscopy w/ Dr. Hunter in 06/2020 - path w/ collagenous colitis. Hyperammonemia - likely related to cirrhosis Elevated troponin - likely demand ischemia, will trend Anemia- likely of chronic disease. will trend Leukopenia - likely related to liver disease and covid 19, will monitor HTN HLD DM -on Toujeo and sliding scale, will convert to Lantus and increase sliding scale while he is on dexamethasone. Prostate cancer - s/p radiation therapy, in remission OA - stable Gout - not in flare currently Pancytopenia, elevated bili and AST Cirrhosis, h/o variceal bleeding and ascites, TIPS occluded collagenous colitis - takes Imodium PRN at home SEVERE PROTEIN-CALORIC MALNUTRITION PLAN FEN - ADA diet PPX - lovenox, will watch platelets DNR OF 11-12 D/W DR KRISTA Bueno - inpatient telemetry monitoring in COVID 19 isolation unit paracentesis today 11-12 CANCELLED no paracentesis until COVID infection cleared. 11-13 POOR INTAKE, D/W RN, will consult hospice, DNR// Pulmonary status worsening. 11-14 hospice consult for goals of care //D-dimer may be liver disease. CPM 38 MIN pt exam, chart review, > 50% of time spent with exam, chart review, pt care coordination History of Present Illness History of Present Illness Mr Orourke is a 75-year-old male w/ PMHx prostate ca (s/p radx 2014), depression, DM2, Cirrhosis who presents to [place] ED with report of shortness of breath that occurred upon waking day of admission when getting up to go to the restroom. Patient was recently diagnosed with COVID-19 on 11/02/2020. Has cirrhosis with regular paracentesis, last paracentesis was approximately 1 week ago at [facility]. Patient reports his abdomen does not feel overly distended and does not think he needs paracentesis at this time. Reports subjective fever and chills. Denies trauma. Very short of breath. H/o cirrhosis reportedly from fatty liver and alcohol. H/o variceal bleeding and ascites/paracentesis in 2013. S/p TIPS then - no issues w/ bleeding or ascites since then until 08/2020 - TIPS thrombosed (see US here 09/17, also reports MRI by urologist in showed non-functioning TIPS). Paracentesis x 4 since then, last 7.4L on 11/01. Labs at [facility] with WBC 3.4, Hb 10.8, platelets 77, NA 136, K3.9, BUN 20, CR 1, glucose 137, magnesium 1.6, bilirubin 2.2, AST 60, ALT 45, INR 1.4, troponin 0 0.066, BNP 2592, albumin 2.6, ammonia 62, lactic acid 2.3, D-dimer 7.41 CTPA with no pulmonary embolism, bilateral diffuse groundglass opacities, cirrhosis with TIPS moderate ascites. EKG appears NSR at 88 bpm, some baseline artifact noted primarily to aVL, NO ST elevation, LAFB, QRS 86ms, QT/QTc 396/483ms Patient was found to be hypoxic upon EMS arrival. Improved with supplemental O2. Patient transferred to [place] for further care due to lack of GI resources at [place]. Seen bedside with O2 saturations 91% on 3 L nasal cannula O2. Patient notes that he feels terrible. He is requested Covid treatment advised remdesivir and liver disease has not been well studied. He wishes to move forward with treatment. 11/09: Patient afebrile, breathing on 2 L nasal cannula. Remdesivir day 2/5. WBC 1.6 yesterday, WBC 1.3 today. This could be seen in viral infections or hypersplenism secondary to cirrhosis. Continuetomonitor. Continue Rocephin, doxy, steroids, and supportive care. 11/10: Afebrile, breathing 2 L nasal cannula. WBC slightly improved. Liver enzymes are not significantly elevated, will continue to monitor. Continue treatment with remdesivir, steroids, antibiotics. 11/11: Patient breathing on 6 L nasal cannula. Afebrile. LFTs good. Continue remdesivir, steroids, antibiotics. 11-12 INC HYPOXIA ON NRB 15 LITERS NC , NOW DNR DR VELASCO CONSULTED Pancytopenia, elevated bili and AST (better) Cirrhosis, h/o variceal bleeding and ascites, TIPS occluded collagenous colitis - takes Imodium PRN at home 1= HOSPICE intake discussed, poor prognosis, D/W CASE MGT 11-14 hospice consult for goals of care today Vitals Vitals Vital Signs Date Time Temp Pulse Resp B/P (MAP) Pulse Ox O2 Delivery O2 Flow Rate FiO2 11/15/20 11:45 97.0 66 24 132/60 (84) 95 BiPAP/CPAP 97.0 11/14/20 19:31 15.0 Physical Exam General: Alert, Oriented X3, Cooperative, mild distress Heart: Regular rate Lungs: Crackles Abdomen: Normal bowel sounds, Soft, Other (Fluid wave) Extremities: No clubbing, No cyanosis, No tenderness/swelling Skin: No rashes, No breakdown, No significant lesion Labs LABS Laboratory Tests Test 11/14/20 19:17 11/15/20 07:10 11/15/20 08:10 11/15/20 11:21 Glucose (Fingerstick) 234 mg/dL (70-99) 195 mg/dL (70-99) 216 mg/dL (70-99) White Blood Count 3.6 x10^3/uL (4.0-11.0) Red Blood Count 3.51 x10^6/uL (4.30-5.70) Hemoglobin 11.1 g/dL (13.0-17.5) Hematocrit 33.5 % (39.0-53.0) Mean Corpuscular Volume 95 fL (79-100) Mean Corpuscular Hemoglobin 32 pg (25-35) Mean Corpuscular Hemoglobin Concent 33 g/dL (31-37) Red Cell Distribution Width 15.2 % (11.5-14.5) Platelet Count 57 x10^3/uL (140-400) Neutrophils (%) (Auto) 84 % (31-73) Lymphocytes (%) (Auto) 3 % (24-48) Monocytes (%) (Auto) 13 % (0-9) Eosinophils (%) (Auto) 0 % (0-3) Basophils (%) (Auto) 0 % (0-3) Neutrophils # (Auto) 3.0 x10^3/uL (1.8-7.7) Lymphocytes # (Auto) 0.1 x10^3/uL (1.0-4.8) Monocytes # (Auto) 0.5 x10^3/uL (0.0-1.1) Eosinophils # (Auto) 0.0 x10^3/uL (0.0-0.7) Basophils # (Auto) 0.0 x10^3/uL (0.0-0.2) Sodium Level 143 mmol/L (136-145) Potassium Level 4.6 mmol/L (3.5-5.1) Chloride Level 104 mmol/L (98-107) Carbon Dioxide Level 34 mmol/L (21-32) Anion Gap 5 (6-14) Blood Urea Nitrogen 36 mg/dL (8-26) Creatinine 0.9 mg/dL (0.7-1.3) Estimated GFR (Cockcroft-Gault) 82.3 BUN/Creatinine Ratio 40 (6-20) Glucose Level 187 mg/dL (70-99) Calcium Level 8.9 mg/dL (8.5-10.1) Total Bilirubin 2.3 mg/dL (0.2-1.0) Aspartate Amino Transf (AST/SGOT) 36 U/L (15-37) Alanine Aminotransferase (ALT/SGPT) 30 U/L (16-63) Alkaline Phosphatase 117 U/L (46-116) Total Protein 6.5 g/dL (6.4-8.2) Albumin 2.2 g/dL (3.4-5.0) Albumin/Globulin Ratio 0.5 (1.0-1.7) Comment Review of Relevant I have reviewed the following items amador (where applicable) has been applied. Labs Laboratory Tests Test 11/14/20 08:00 11/14/20 19:17 11/15/20 07:10 11/15/20 08:10 White Blood Count 3.8 x10^3/uL (4.0-11.0) 3.6 x10^3/uL (4.0-11.0) Red Blood Count 3.54 x10^6/uL (4.30-5.70) 3.51 x10^6/uL (4.30-5.70) Hemoglobin 11.2 g/dL (13.0-17.5) 11.1 g/dL (13.0-17.5) Hematocrit 33.9 % (39.0-53.0) 33.5 % (39.0-53.0) Mean Corpuscular Volume 96 fL (79-100) 95 fL (79-100) Mean Corpuscular Hemoglobin 32 pg (25-35) 32 pg (25-35) Mean Corpuscular Hemoglobin Concent 33 g/dL (31-37) 33 g/dL (31-37) Red Cell Distribution Width 15.2 % (11.5-14.5) 15.2 % (11.5-14.5) Platelet Count 56 x10^3/uL (140-400) 57 x10^3/uL (140-400) Neutrophils (%) (Auto) 85 % (31-73) 84 % (31-73) Lymphocytes (%) (Auto) 3 % (24-48) 3 % (24-48) Monocytes (%) (Auto) 12 % (0-9) 13 % (0-9) Eosinophils (%) (Auto) 0 % (0-3) 0 % (0-3) Basophils (%) (Auto) 0 % (0-3) 0 % (0-3) Neutrophils # (Auto) 3.2 x10^3/uL (1.8-7.7) 3.0 x10^3/uL (1.8-7.7) Lymphocytes # (Auto) 0.1 x10^3/uL (1.0-4.8) 0.1 x10^3/uL (1.0-4.8) Monocytes # (Auto) 0.4 x10^3/uL (0.0-1.1) 0.5 x10^3/uL (0.0-1.1) Eosinophils # (Auto) 0.0 x10^3/uL (0.0-0.7) 0.0 x10^3/uL (0.0-0.7) Basophils # (Auto) 0.0 x10^3/uL (0.0-0.2) 0.0 x10^3/uL (0.0-0.2) Glucose (Fingerstick) 234 mg/dL (70-99) 195 mg/dL (70-99) Sodium Level 143 mmol/L (136-145) Potassium Level 4.6 mmol/L (3.5-5.1) Chloride Level 104 mmol/L (98-107) Carbon Dioxide Level 34 mmol/L (21-32) Anion Gap 5 (6-14) Blood Urea Nitrogen 36 mg/dL (8-26) Creatinine 0.9 mg/dL (0.7-1.3) Estimated GFR (Cockcroft-Gault) 82.3 BUN/Creatinine Ratio 40 (6-20) Glucose Level 187 mg/dL (70-99) Calcium Level 8.9 mg/dL (8.5-10.1) Total Bilirubin 2.3 mg/dL (0.2-1.0) Aspartate Amino Transf (AST/SGOT) 36 U/L (15-37) Alanine Aminotransferase (ALT/SGPT) 30 U/L (16-63) Alkaline Phosphatase 117 U/L (46-116) Total Protein 6.5 g/dL (6.4-8.2) Albumin 2.2 g/dL (3.4-5.0) Albumin/Globulin Ratio 0.5 (1.0-1.7) Test 11/15/20 11:21 Glucose (Fingerstick) 216 mg/dL (70-99) Laboratory Tests Test 11/14/20 19:17 11/15/20 07:10 11/15/20 08:10 11/15/20 11:21 Glucose (Fingerstick) 234 mg/dL (70-99) 195 mg/dL (70-99) 216 mg/dL (70-99) White Blood Count 3.6 x10^3/uL (4.0-11.0) Red Blood Count 3.51 x10^6/uL (4.30-5.70) Hemoglobin 11.1 g/dL (13.0-17.5) Hematocrit 33.5 % (39.0-53.0) Mean Corpuscular Volume 95 fL (79-100) Mean Corpuscular Hemoglobin 32 pg (25-35) Mean Corpuscular Hemoglobin Concent 33 g/dL (31-37) Red Cell Distribution Width 15.2 % (11.5-14.5) Platelet Count 57 x10^3/uL (140-400) Neutrophils (%) (Auto) 84 % (31-73) Lymphocytes (%) (Auto) 3 % (24-48) Monocytes (%) (Auto) 13 % (0-9) Eosinophils (%) (Auto) 0 % (0-3) Basophils (%) (Auto) 0 % (0-3) Neutrophils # (Auto) 3.0 x10^3/uL (1.8-7.7) Lymphocytes # (Auto) 0.1 x10^3/uL (1.0-4.8) Monocytes # (Auto) 0.5 x10^3/uL (0.0-1.1) Eosinophils # (Auto) 0.0 x10^3/uL (0.0-0.7) Basophils # (Auto) 0.0 x10^3/uL (0.0-0.2) Sodium Level 143 mmol/L (136-145) Potassium Level 4.6 mmol/L (3.5-5.1) Chloride Level 104 mmol/L (98-107) Carbon Dioxide Level 34 mmol/L (21-32) Anion Gap 5 (6-14) Blood Urea Nitrogen 36 mg/dL (8-26) Creatinine 0.9 mg/dL (0.7-1.3) Estimated GFR (Cockcroft-Gault) 82.3 BUN/Creatinine Ratio 40 (6-20) Glucose Level 187 mg/dL (70-99) Calcium Level 8.9 mg/dL (8.5-10.1) Total Bilirubin 2.3 mg/dL (0.2-1.0) Aspartate Amino Transf (AST/SGOT) 36 U/L (15-37) Alanine Aminotransferase (ALT/SGPT) 30 U/L (16-63) Alkaline Phosphatase 117 U/L (46-116) Total Protein 6.5 g/dL (6.4-8.2) Albumin 2.2 g/dL (3.4-5.0) Albumin/Globulin Ratio 0.5 (1.0-1.7) Medications Current Medications Furosemide (Lasix) 40 mg DAILY PO Last administered on 11/15/20at 08:01; Start 11/09/20 at 09:00 Lactulose (Lactulose) 20 gm DAILY PO ; Start 11/09/20 at 09:00; Stop 11/09/20 at 10:20; Status DC Lactulose (Lactulose) 20 gm PRN DAILY PRN PO CONSTIPATION; Start 11/08/20 at 12:15 Dexamethasone Sodium Phosphate (Decadron) 6 mg DAILY IVP Last administered on 11/15/20at 07:59; Start 11/09/20 at 09:00; Stop 11/15/20 at 08:58; Status DC Dexamethasone Sodium Phosphate (Decadron) 6 mg 1X ONCE IVP Last administered on 11/08/20at 13:10; Start 11/08/20 at 12:30; Stop 11/08/20 at 12:35; Status DC Ceftriaxone Sodium (Rocephin) 1 gm Q24H IVP Last administered on 11/12/20at 13:00; Start 11/08/20 at 13:00; Stop 11/12/20 at 13:01; Status DC Doxycycline Hyclate 100 mg/ Dextrose 100 ml @ 50 mls/hr Q12HR IV Last administered on 11/13/20at 09:00; Start 11/08/20 at 21:00; Stop 11/13/20 at 20:59; Status DC Ondansetron HCl (Zofran) 4 mg PRN Q6HRS PRN IVP NAUSEA/VOMITING Last administered on 11/09/20at 20:13; Start 11/08/20 at 12:45 Al Hydroxide/Mg Hydroxide (Mylanta Plus Xs) 30 ml PRN Q3HRS PRN PO HEARTBURN / GAS; Start 11/08/20 at 12:45 Calcium Carbonate/ Glycine (Tums) 500 mg PRN Q3HRS PRN PO UPSET STOMACH; Start 11/08/20 at 12:45 Acetaminophen (Tylenol) 650 mg PRN Q6HRS PRN PO Headaches, Temp > 101.5F; Start 11/08/20 at 12:45 Bisacodyl (Dulcolax Supp) 10 mg PRN DAILY PRN SC CONSTIPATION; Start 11/08/20 at 12:45 Enoxaparin Sodium (Lovenox 40mg Syringe) 40 mg Q24H SQ Last administered on 11/12/20at 17:24; Start 11/08/20 at 16:00; Stop 11/14/20 at 11:53; Status DC Duloxetine HCl (Cymbalta) 30 mg DAILY PO Last administered on 11/15/20at 08:01; Start 11/09/20 at 09:00 Insulin Human Lispro (HumaLOG) 8 units TIDWMEALS SQ Last administered on 11/15/20at 11:33; Start 11/08/20 at 17:00 Insulin Glargine (Lantus Syringe) 30 unit QHS SQ Last administered on 11/14/20at 21:37; Start 11/08/20 at 21:00 Insulin Human Lispro (HumaLOG) 0-9 UNITS TIDWMEALS SQ Last administered on 11/15/20at 11:33; Start 11/08/20 at 17:00 Dextrose (Dextrose 50%-Water Syringe) 12.5 gm PRN Q15MIN PRN IV SEE COMMENTS; Start 11/08/20 at 14:15 Remdesivir 200 mg/ Sodium Chloride 210 ml @ 210 mls/hr 1X ONCE IV Last administered on 11/08/20at 15:51; Start 11/08/20 at 15:00; Stop 11/08/20 at 15:59; Status DC Remdesivir 100 mg/ Sodium Chloride 230 ml @ 460 mls/hr Q24H IV Last administered on 11/12/20at 17:24; Start 11/09/20 at 15:00; Stop 11/12/20 at 15:29; Status DC Zinc Sulfate (Orazinc) 220 mg DAILY PO Last administered on 11/15/20at 08:00; Start 11/08/20 at 14:45 Thiamine Mononitrate (Vitamin B-1) 100 mg DAILY PO Last administered on 11/15/20at 08:00; Start 11/08/20 at 14:45 Guaifenesin (Robitussin Dm) 10 ml PRN Q6HRS PRN PO COUGH; Start 11/08/20 at 14:45 Propranolol HCl (Inderal La) 80 mg DAILY PO Last administered on 11/13/20at 08:56; Start 11/08/20 at 14:45 Albuterol Sulfate (Ventolin Hfa) 2 puff PRN Q4HRS PRN INH SHORTNESS OF BREATH Last administered on 11/12/20at 08:18; Start 11/08/20 at 15:15 Insulin Human Lispro (HumaLOG) 13 units 1X ONCE SQ Last administered on 11/08/20at 21:51; Start 11/08/20 at 21:45; Stop 11/08/20 at 21:53; Status DC Famotidine (Pepcid) 20 mg QHS PO Last administered on 11/14/20at 21:29; Start 11/09/20 at 21:00 Loperamide HCl (Imodium) 2 mg PRN Q15MIN PRN PO DIARRHEA Last administered on 11/10/20at 22:34; Start 11/10/20 at 21:45 Hydralazine HCl (Apresoline Inj) 10 mg PRN Q2HRS PRN IVP ELEVATED BP, SEE COMMENTS Last administered on 11/12/20at 20:31; Start 11/11/20 at 00:15 Lorazepam (Ativan) 0.25 mg 1X ONCE PO Last administered on 11/12/20at 20:27; Start 11/12/20 at 20:15; Stop 11/12/20 at 20:16; Status DC Lorazepam (Ativan) 0.25 mg PRN Q6HRS PRN PO ANXIETY / AGITATION Last administered on 11/13/20at 21:06; Start 11/12/20 at 23:45 Enoxaparin Sodium (Lovenox Per Pharmacy Treatment Dosing) 1 each PRN DAILY PRN MC SEE COMMENTS; Start 11/14/20 at 12:00 Enoxaparin Sodium (Lovenox 100mg Syringe) 100 mg Q12HR SQ Last administered on 11/15/20at 08:00; Start 11/14/20 at 12:00 Dexamethasone Sodium Phosphate (Decadron) 4 mg DAILY IVP ; Start 11/15/20 at 09:00 Active Scripts Active Reported Imodium A-D (Loperamide HCl) 2 Mg Capsule 2 Mg PO PRN PRN Propranolol Hcl 80 Mg Cap.sa.24h 80 Mg PO DAILY Lisinopril 20 Mg Tablet 20 Mg PO DAILY Lasix (Furosemide) 40 Mg Tablet 40 Mg PO DAILY Metformin Hcl 1,000 Mg Tablet 1,000 Mg PO BIDWMEALS Tounisha Solostar (Insulin Glargine,Hum.rec.anlog) 300 Unit/1 Ml Insuln.pen 30 Unit SQ DAILY Novolog Flexpen (Insulin Aspart) 100 Unit/1 Ml Insuln.pen 25 Unit SQ TIDAC uses sliding scale based on Dexacom Duloxetine Hcl 30 Mg Capsule.dr 30 Mg PO DAILY Vitals/I & O Vital Sign - Last 24 Hours 11/14/20 11/14/20 11/14/20 11/14/20 15:04 15:17 19:00 19:31 Temp 97.0 97.2 97.0 97.2 Pulse 56 70 Resp 24 29 B/P (MAP) 188/87 (120) 113/68 (83) Pulse Ox 97 96 96 O2 Delivery BiPAP/CPAP BiPAP/CPAP BiPAP/CPAP O2 Flow Rate 15.0 11/14/20 11/14/20 11/14/20 11/15/20 20:00 21:05 23:16 00:00 Temp 97.2 97.2 Pulse 69 Resp 27 B/P (MAP) 130/63 (85) Pulse Ox 97 100 100 O2 Delivery Bi-pap BiPAP/CPAP BiPAP/CPAP BiPAP/CPAP 11/15/20 11/15/20 11/15/20 11/15/20 03:34 04:25 07:00 07:00 Temp 97.3 97.2 97.3 97.2 Pulse 61 63 Resp 25 24 B/P (MAP) 130/62 (84) 156/74 (101) Pulse Ox 96 97 96 98 O2 Delivery BiPAP/CPAP BiPAP/CPAP BiPAP/CPAP BiPAP/CPAP 11/15/20 11/15/20 11:15 11:45 Temp 97.0 97.0 Pulse 66 Resp 24 B/P (MAP) 132/60 (84) Pulse Ox 96 95 O2 Delivery BiPAP/CPAP BiPAP/CPAP Intake and Output 11/14/20 11/14/20 11/15/20 15:00 23:00 07:00 Intake Total 100 ml 200 ml 0 ml Output Total 1 ml Balance 100 ml 200 ml -1 ml Nutrition Consultation Dietary Evaluation: Recommendations by RD: Dietary education by RD, Increase Calorie Intake, Protein supplementation Comments: REC continue cardiac ( low Na ) diet , ADA offer snacks/supplements from unit prn will send Glucerna supplements tid Expected Outcomes/Goals: to meet >75% est nutr needs- not met, goal ongoing Malnutrition Findings: Food and Nutrition Intake (Sev: <50% est energy req 5days Weight Status: Overweight Fluid Accumulation (Severe): Severe Justicifation of Admission Dx: Justifications for Admission: Justification of Admission Dx: Comment: RENNY ARCINIEGA MD Nov 15, 2020 12:16
[2020-11-15 15:01] VITALS: BP 146/71
[2020-11-15 19:00] VITALS: BP 122/69
[2020-11-15] MEDS: LORazepam 0.5 MG TABLET PO PRN (22:32)
[2020-11-15] MEDS: FAMOTIDINE 20 MG TABLET. PO SCH (22:33)
[2020-11-15 23:00] VITALS: BP 128/63
[2020-11-15] MEDS: INSULIN GLARGINE SYRINGE. SQ SCH (23:07)
[2020-11-16 03:00] VITALS: BP 120/64
[2020-11-16 07:00] VITALS: BP 149/72
[2020-11-16] MEDS: INSULIN LISPRO 300 UNITS/3 ML VIAL. SQ SCH ×6 (08:00→17:16)
[2020-11-16 08:31] VITALS: BP 149/72
--- NOTE | 2020-11-16 09:02 | PDOC ---
PULMONARY PROGRESS NOTES DATE: 11/16/20 TIME: 09:00 Subjective Patient is now on 80% BiPAP Afebrile Vitals Vital Signs Date Time Temp Pulse Resp B/P (MAP) Pulse Ox O2 Delivery O2 Flow Rate FiO2 11/16/20 08:31 95.3 71 20 149/72 (97) 100 BiPAP/CPAP 95.3 11/15/20 22:30 15.0 Comments Patient is seen during ID- pandemic, visual exam performed Regular rate and rhythm BIPAP no resp. distress no edema or rash Lungs: Crackles Labs Laboratory Tests Test 11/14/20 16:08 11/14/20 19:17 11/15/20 07:10 11/15/20 08:10 Glucose (Fingerstick) 205 mg/dL (70-99) 234 mg/dL (70-99) 195 mg/dL (70-99) White Blood Count 3.6 x10^3/uL (4.0-11.0) Red Blood Count 3.51 x10^6/uL (4.30-5.70) Hemoglobin 11.1 g/dL (13.0-17.5) Hematocrit 33.5 % (39.0-53.0) Mean Corpuscular Volume 95 fL (79-100) Mean Corpuscular Hemoglobin 32 pg (25-35) Mean Corpuscular Hemoglobin Concent 33 g/dL (31-37) Red Cell Distribution Width 15.2 % (11.5-14.5) Platelet Count 57 x10^3/uL (140-400) Neutrophils (%) (Auto) 84 % (31-73) Lymphocytes (%) (Auto) 3 % (24-48) Monocytes (%) (Auto) 13 % (0-9) Eosinophils (%) (Auto) 0 % (0-3) Basophils (%) (Auto) 0 % (0-3) Neutrophils # (Auto) 3.0 x10^3/uL (1.8-7.7) Lymphocytes # (Auto) 0.1 x10^3/uL (1.0-4.8) Monocytes # (Auto) 0.5 x10^3/uL (0.0-1.1) Eosinophils # (Auto) 0.0 x10^3/uL (0.0-0.7) Basophils # (Auto) 0.0 x10^3/uL (0.0-0.2) Sodium Level 143 mmol/L (136-145) Potassium Level 4.6 mmol/L (3.5-5.1) Chloride Level 104 mmol/L (98-107) Carbon Dioxide Level 34 mmol/L (21-32) Anion Gap 5 (6-14) Blood Urea Nitrogen 36 mg/dL (8-26) Creatinine 0.9 mg/dL (0.7-1.3) Estimated GFR (Cockcroft-Gault) 82.3 BUN/Creatinine Ratio 40 (6-20) Glucose Level 187 mg/dL (70-99) Calcium Level 8.9 mg/dL (8.5-10.1) Total Bilirubin 2.3 mg/dL (0.2-1.0) Aspartate Amino Transf (AST/SGOT) 36 U/L (15-37) Alanine Aminotransferase (ALT/SGPT) 30 U/L (16-63) Alkaline Phosphatase 117 U/L (46-116) Total Protein 6.5 g/dL (6.4-8.2) Albumin 2.2 g/dL (3.4-5.0) Albumin/Globulin Ratio 0.5 (1.0-1.7) Test 11/15/20 11:21 11/15/20 16:21 11/15/20 20:07 11/16/20 07:23 Glucose (Fingerstick) 216 mg/dL (70-99) 134 mg/dL (70-99) 229 mg/dL (70-99) 224 mg/dL (70-99) Laboratory Tests Test 11/15/20 11:21 11/15/20 16:21 11/15/20 20:07 11/16/20 07:23 Glucose (Fingerstick) 216 mg/dL (70-99) 134 mg/dL (70-99) 229 mg/dL (70-99) 224 mg/dL (70-99) Medications Active Scripts Medications Dose Route/Sig Max Daily Dose Days Date Category Dose Instructions Imodium A-D (Loperamide HCl) 2 Mg Capsule 2 Mg PO PRN PRN 11/08/20 Reported Propranolol Hcl 80 Mg Cap.sa.24h 80 Mg PO DAILY 09/03/20 Reported Lisinopril 20 Mg Tablet 20 Mg PO DAILY 06/22/20 Reported Lasix (Furosemide) 40 Mg Tablet 40 Mg PO DAILY 06/22/20 Reported Metformin Hcl 1,000 Mg Tablet 1,000 Mg PO BIDWMEALS 06/22/20 Reported Tounisha Solostar (Insulin Glargine,Hum.rec.anlog) 300 Unit/1 Ml Insuln.pen 30 Unit SQ DAILY 06/22/20 Reported Novolog Flexpen (Insulin Aspart) 100 Unit/1 Ml Insuln.pen 25 Unit SQ TIDAC 01/07/14 Reported uses sliding scale based on Dexacom Duloxetine Hcl 30 Mg Capsule.dr 30 Mg PO DAILY 01/07/14 Reported Impression . IMPRESSION: Acute hypoxic respiratory failure secondary to COVID-[address] chest with bilateral ground glass infiltrates, suggestive of COVID-19 pneumonia. The patient with history of cirrhosis, status post TIPS procedure, which recently failed and has been requiring paracentesis regularly. No significant tobacco history. Markedly elevated D-dimer. We will need to follow closely. This could be secondary to multifactorial etiologies. Leukopenia, now improving. Likely due to viral infection. Plan . RECOMMENDATIONS: Continue supplemental oxygen, currently on 03/04 at 80% BiPAP, reduce FiO2 to 75% Markedly elevated D-dimer, will obtain CTA of chest, treatment dose Lovenox Patient has completed full course of remdesivir Follow GI recommendations DC dexamethasone as patient is completed 10-day course Physical therapy/Occupational Therapy DVT/GI prophylaxis Patient is a DO NOT RESUSCITATE Discussed with RN Poor prognosis JACKELYN LONGO MD Nov 16, 2020 09:01
[2020-11-16] MEDS: DULoxetine HCL 30 MG CAPSULE.DR PO SCH (09:10)
[2020-11-16] MEDS: THIAMINE 100 MG TABLET. PO SCH (09:10)
[2020-11-16] MEDS: ZINC SULFATE 220 MG CAPSULE. PO SCH (09:11)
[2020-11-16] MEDS: FUROSEMIDE 40 MG TABLET. PO SCH (09:11)
[2020-11-16] MEDS: PROPRANOLOL ER 80 MG CAP.ER.24H. PO SCH (09:11)
--- NOTE | 2020-11-16 09:59 | PDOC ---
Date of Service: DATE: 11/16/20 TIME: 09:57 Objective: Objective: D/w nurse and reviewed chart - plans to DC home w/ hospice. Vital Signs: Vital Signs Date Time Temp Pulse Resp B/P (MAP) Pulse Ox O2 Delivery O2 Flow Rate FiO2 11/16/20 09:11 71 149/72 11/16/20 08:31 95.3 20 100 BiPAP/CPAP 95.3 11/15/20 22:30 15.0 Labs: Laboratory Tests Test 11/15/20 11:21 11/15/20 16:21 11/15/20 20:07 11/16/20 07:23 Glucose (Fingerstick) 216 mg/dL 134 mg/dL 229 mg/dL 224 mg/dL PE: GEN: in COVID isolation, visual exam done LUNGS: BiPAP NEURO/PSYCH: sleeping A/P: COVID-19 infection, resp failure, cirrhosis -- Plans for Hospice as above - GI will sign off. Justicifation of Admission Dx: Justifications for Admission: Justification of Admission Dx: Comment: DAV LUNDY Nov 16, 2020 09:59
--- NOTE | 2020-11-16 10:03 | PDOC ---
PROGRESS NOTES Date of Service: DATE: 11/16/20 TIME: 10:02 Chief Complaint Chief Complaint impression Acute respiratory failure with Hypoxia - related to COVID 19 pneumonia, will also treat for likely gram negative pneumonia as well given his cirrhosis and risk factors.. Steroids and remdesivir ordered. Wean O2 as tolerated, BIPAP SUP[PORT COVID-19 - with pneumonia, have d/w patient risks of remdesivir in liver disease, he wishes to have treatment, WORSENING HYPOXIA Cirrhosis - with ascites. S/p TIPS for variceal bleeding in 2013. GI following. Will continue diuretics and monitor. EGD and colonoscopy w/ Dr. Hunetr in 06/2020 - path w/ collagenous colitis. Hyperammonemia - likely related to cirrhosis Elevated troponin - likely demand ischemia, will trend Anemia- likely of chronic disease. will trend Leukopenia - likely related to liver disease and covid 19, will monitor HTN HLD DM -on Toujeo and sliding scale, will convert to Lantus and increase sliding scale while he is on dexamethasone. Prostate cancer - s/p radiation therapy, in remission OA - stable Gout - not in flare currently Pancytopenia, elevated bili and AST Cirrhosis, h/o variceal bleeding and ascites, TIPS occluded collagenous colitis - takes Imodium PRN at home SEVERE PROTEIN-CALORIC MALNUTRITION PLAN FEN - ADA diet PPX - lovenox, will watch platelets DNR OF 11-12 D/W DR VELASCO Dispo - inpatient telemetry monitoring in COVID 19 isolation unit paracentesis today 11-12 CANCELLED no paracentesis until COVID infection cleared. 11-13 POOR INTAKE, D/W RN, will consult hospice, DNR// Pulmonary status worsening. 11-14 hospice consult for goals of care //D-dimer may be liver disease. CPM 11-16 DISCHARGE WITH HOME HOSPICE, [facility],, D/W DR SHANKS BY PHONE Continue supplemental oxygen, currently on 03/04 at 80% BiPAP, reduce FiO2 to 75% Markedly elevated D-dimer, will obtain CTA of chest, treatment dose Lovenox 38 MIN pt exam, chart review, > 50% of time spent with exam, chart review, pt care coordination History of Present Illness History of Present Illness Mr Orourke is a 75-year-old male w/ PMHx prostate ca (s/p radx 2014), depression, DM2, Cirrhosis who presents to [facility] ED with report of shortness of breath that occurred upon waking day of admission when getting up to go to the restroom. Patient was recently diagnosed with COVID-19 on 11/02/2020. Has cirrhosis with regular paracentesis, last paracentesis was approximately 1 week ago at [facility]. Patient reports his abdomen does not feel overly distended and does not think he needs paracentesis at this time. Reports subjective fever and chills. Denies trauma. Very short of breath. H/o cirrhosis reportedly from fatty liver and alcohol. H/o variceal bleeding and ascites/paracentesis in 2013. S/p TIPS then - no issues w/ bleeding or ascites since then until 08/2020 - TIPS thrombosed (see US here 09/17, also reports MRI by urologist in showed non-functioning TIPS). Paracentesis x 4 since then, last 7.4L on 11/01. Labs at [facility] with WBC 3.4, Hb 10.8, platelets 77, NA 136, K3.9, BUN 20, CR 1, glucose 137, magnesium 1.6, bilirubin 2.2, AST 60, ALT 45, INR 1.4, troponin 0 0.066, BNP 2592, albumin 2.6, ammonia 62, lactic acid 2.3, D-dimer 7.41 CTPA with no pulmonary embolism, bilateral diffuse groundglass opacities, cirrhosis with TIPS moderate ascites. EKG appears NSR at 88 bpm, some baseline artifact noted primarily to aVL, NO ST elevation, LAFB, QRS 86ms, QT/QTc 396/483ms Patient was found to be hypoxic upon EMS arrival. Improved with supplemental O2. Patient transferred to [place] for further care due to lack of GI resources at [facility]. Seen bedside with O2 saturations 91% on 3 L nasal cannula O2. Patient notes that he feels terrible. He is requested Covid treatment advised remdesivir and liver disease has not been well studied. He wishes to move forward with treatment. 11/09: Patient afebrile, breathing on 2 L nasal cannula. Remdesivir day 11/23. WBC 1.6 yesterday, WBC 1.3 today. This could be seen in viral infections or hypersplenism secondary to cirrhosis. Continuetomonitor. Continue Rocephin, doxy, steroids, and supportive care. 11/10: Afebrile, breathing 2 L nasal cannula. WBC slightly improved. Liver enzymes are not significantly elevated, will continue to monitor. Continue treatment with remdesivir, steroids, antibiotics. 11/11: Patient breathing on 6 L nasal cannula. Afebrile. LFTs good. Continue remdesivir, steroids, antibiotics. 11-12 INC HYPOXIA ON NRB 15 LITERS NC , NOW DNR DR VELASCO CONSULTED [place] ncytopenia, elevated bili and AST (better) Cirrhosis, h/o variceal bleeding and ascites, TIPS occluded collagenous colitis - takes Imodium PRN at home 1= HOSPICE intake discussed, poor prognosis, D/W CASE MGT 11-14 hospice consult for goals of care today 11-16 CTA CHEST TODAY, ELEVATED D DIMER, HOME WITH [facility] TOMORROW IF ACCEPTED, D/W BY PHONE Vitals Vitals Vital Signs Date Time Temp Pulse Resp B/P (MAP) Pulse Ox O2 Delivery O2 Flow Rate FiO2 11/16/20 09:11 71 149/72 11/16/20 08:31 95.3 20 100 BiPAP/CPAP 95.3 11/16/20 08:00 15.0 Physical Exam General: Alert, Oriented X3, Cooperative, mild distress Heart: Regular rate Lungs: Crackles Abdomen: Normal bowel sounds, Soft, Other (Fluid wave) Extremities: No clubbing, No cyanosis, No tenderness/swelling Skin: No rashes, No breakdown, No significant lesion Labs LABS Laboratory Tests Test 11/15/20 11:21 11/15/20 16:21 11/15/20 20:07 11/16/20 07:23 Glucose (Fingerstick) 216 mg/dL (70-99) 134 mg/dL (70-99) 229 mg/dL (70-99) 224 mg/dL (70-99) Comment Review of Relevant I have reviewed the following items amador (where applicable) has been applied. Labs Laboratory Tests Test 11/14/20 16:08 11/14/20 19:17 11/15/20 07:10 11/15/20 08:10 Glucose (Fingerstick) 205 mg/dL (70-99) 234 mg/dL (70-99) 195 mg/dL (70-99) White Blood Count 3.6 x10^3/uL (4.0-11.0) Red Blood Count 3.51 x10^6/uL (4.30-5.70) Hemoglobin 11.1 g/dL (13.0-17.5) Hematocrit 33.5 % (39.0-53.0) Mean Corpuscular Volume 95 fL (79-100) Mean Corpuscular Hemoglobin 32 pg (25-35) Mean Corpuscular Hemoglobin Concent 33 g/dL (31-37) Red Cell Distribution Width 15.2 % (11.5-14.5) Platelet Count 57 x10^3/uL (140-400) Neutrophils (%) (Auto) 84 % (31-73) Lymphocytes (%) (Auto) 3 % (24-48) Monocytes (%) (Auto) 13 % (0-9) Eosinophils (%) (Auto) 0 % (0-3) Basophils (%) (Auto) 0 % (0-3) Neutrophils # (Auto) 3.0 x10^3/uL (1.8-7.7) Lymphocytes # (Auto) 0.1 x10^3/uL (1.0-4.8) Monocytes # (Auto) 0.5 x10^3/uL (0.0-1.1) Eosinophils # (Auto) 0.0 x10^3/uL (0.0-0.7) Basophils # (Auto) 0.0 x10^3/uL (0.0-0.2) Sodium Level 143 mmol/L (136-145) Potassium Level 4.6 mmol/L (3.5-5.1) Chloride Level 104 mmol/L (98-107) Carbon Dioxide Level 34 mmol/L (21-32) Anion Gap 5 (6-14) Blood Urea Nitrogen 36 mg/dL (8-26) Creatinine 0.9 mg/dL (0.7-1.3) Estimated GFR (Cockcroft-Gault) 82.3 BUN/Creatinine Ratio 40 (6-20) Glucose Level 187 mg/dL (70-99) Calcium Level 8.9 mg/dL (8.5-10.1) Total Bilirubin 2.3 mg/dL (0.2-1.0) Aspartate Amino Transf (AST/SGOT) 36 U/L (15-37) Alanine Aminotransferase (ALT/SGPT) 30 U/L (16-63) Alkaline Phosphatase 117 U/L (46-116) Total Protein 6.5 g/dL (6.4-8.2) Albumin 2.2 g/dL (3.4-5.0) Albumin/Globulin Ratio 0.5 (1.0-1.7) Test 11/15/20 11:21 11/15/20 16:21 11/15/20 20:07 11/16/20 07:23 Glucose (Fingerstick) 216 mg/dL (70-99) 134 mg/dL (70-99) 229 mg/dL (70-99) 224 mg/dL (70-99) Laboratory Tests Test 11/15/20 11:21 11/15/20 16:21 11/15/20 20:07 11/16/20 07:23 Glucose (Fingerstick) 216 mg/dL (70-99) 134 mg/dL (70-99) 229 mg/dL (70-99) 224 mg/dL (70-99) Medications Current Medications Furosemide (Lasix) 40 mg DAILY PO Last administered on 11/16/20at 09:11; Start 11/09/20 at 09:00 Lactulose (Lactulose) 20 gm DAILY PO ; Start 11/09/20 at 09:00; Stop 11/09/20 at 10:20; Status DC Lactulose (Lactulose) 20 gm PRN DAILY PRN PO CONSTIPATION; Start 11/08/20 at 12:15 Dexamethasone Sodium Phosphate (Decadron) 6 mg DAILY IVP Last administered on 11/15/20at 07:59; Start 11/09/20 at 09:00; Stop 11/15/20 at 08:58; Status DC Dexamethasone Sodium Phosphate (Decadron) 6 mg 1X ONCE IVP Last administered on 11/08/20at 13:10; Start 11/08/20 at 12:30; Stop 11/08/20 at 12:35; Status DC Ceftriaxone Sodium (Rocephin) 1 gm Q24H IVP Last administered on 11/12/20at 13:00; Start 11/08/20 at 13:00; Stop 11/12/20 at 13:01; Status DC Doxycycline Hyclate 100 mg/ Dextrose 100 ml @ 50 mls/hr Q12HR IV Last administered on 11/13/20at 09:00; Start 11/08/20 at 21:00; Stop 11/13/20 at 20:59; Status DC Ondansetron HCl (Zofran) 4 mg PRN Q6HRS PRN IVP NAUSEA/VOMITING Last administered on 11/09/20at 20:13; Start 11/08/20 at 12:45 Al Hydroxide/Mg Hydroxide (Mylanta Plus Xs) 30 ml PRN Q3HRS PRN PO HEARTBURN / GAS; Start 11/08/20 at 12:45 Calcium Carbonate/ Glycine (Tums) 500 mg PRN Q3HRS PRN PO UPSET STOMACH; Start 11/08/20 at 12:45 Acetaminophen (Tylenol) 650 mg PRN Q6HRS PRN PO Headaches, Temp > 101.5F; Start 11/08/20 at 12:45 Bisacodyl (Dulcolax Supp) 10 mg PRN DAILY PRN GA CONSTIPATION; Start 11/08/20 at 12:45 Enoxaparin Sodium (Lovenox 40mg Syringe) 40 mg Q24H SQ Last administered on 11/12/20at 17:24; Start 11/08/20 at 16:00; Stop 11/14/20 at 11:53; Status DC Duloxetine HCl (Cymbalta) 30 mg DAILY PO Last administered on 11/16/20at 09:10; Start 11/09/20 at 09:00 Insulin Human Lispro (HumaLOG) 8 units TIDWMEALS SQ Last administered on 11/16/20at 09:12; Start 11/08/20 at 17:00 Insulin Glargine (Lantus Syringe) 30 unit QHS SQ Last administered on 11/15/20at 23:07; Start 11/08/20 at 21:00 Insulin Human Lispro (HumaLOG) 0-9 UNITS TIDWMEALS SQ Last administered on 11/15/20at 11:33; Start 11/08/20 at 17:00 Dextrose (Dextrose 50%-Water Syringe) 12.5 gm PRN Q15MIN PRN IV SEE COMMENTS; Start 11/08/20 at 14:15 Remdesivir 200 mg/ Sodium Chloride 210 ml @ 210 mls/hr 1X ONCE IV Last administered on 11/08/20at 15:51; Start 11/08/20 at 15:00; Stop 11/08/20 at 15:59; Status DC Remdesivir 100 mg/ Sodium Chloride 230 ml @ 460 mls/hr Q24H IV Last administered on 11/12/20at 17:24; Start 11/09/20 at 15:00; Stop 11/12/20 at 15:29; Status DC Zinc Sulfate (Orazinc) 220 mg DAILY PO Last administered on 11/16/20at 09:11; Start 11/08/20 at 14:45 Thiamine Mononitrate (Vitamin B-1) 100 mg DAILY PO Last administered on 11/16/20at 09:10; Start 11/08/20 at 14:45 Guaifenesin (Robitussin Dm) 10 ml PRN Q6HRS PRN PO COUGH; Start 11/08/20 at 14:45 Propranolol HCl (Inderal La) 80 mg DAILY PO Last administered on 11/16/20at 09:11; Start 11/08/20 at 14:45 Albuterol Sulfate (Ventolin Hfa) 2 puff PRN Q4HRS PRN INH SHORTNESS OF BREATH Last administered on 11/12/20at 08:18; Start 11/08/20 at 15:15 Insulin Human Lispro (HumaLOG) 13 units 1X ONCE SQ Last administered on 11/08/20at 21:51; Start 11/08/20 at 21:45; Stop 11/08/20 at 21:53; Status DC Famotidine (Pepcid) 20 mg QHS PO Last administered on 11/15/20at 22:33; Start 11/09/20 at 21:00 Loperamide HCl (Imodium) 2 mg PRN Q15MIN PRN PO DIARRHEA Last administered on 11/10/20at 22:34; Start 11/10/20 at 21:45 Hydralazine HCl (Apresoline Inj) 10 mg PRN Q2HRS PRN IVP ELEVATED BP, SEE COMMENTS Last administered on 11/12/20at 20:31; Start 11/11/20 at 00:15 Lorazepam (Ativan) 0.25 mg 1X ONCE PO Last administered on 1/25/21at 20:27; Start 11/12/20 at 20:15; Stop 11/12/20 at 20:16; Status DC Lorazepam (Ativan) 0.25 mg PRN Q6HRS PRN PO ANXIETY / AGITATION Last administered on 11/15/20at 22:32; Start 11/12/20 at 23:45 Enoxaparin Sodium (Lovenox Per Pharmacy Treatment Dosing) 1 each PRN DAILY PRN MC SEE COMMENTS; Start 11/14/20 at 12:00 Enoxaparin Sodium (Lovenox 100mg Syringe) 100 mg Q12HR SQ Last administered on 11/16/20at 09:11; Start 11/14/20 at 12:00 Dexamethasone Sodium Phosphate (Decadron) 4 mg DAILY IVP ; Start 11/15/20 at 09:00; Stop 11/16/20 at 09:00; Status DC Active Scripts Active Reported Imodium A-D (Loperamide HCl) 2 Mg Capsule 2 Mg PO PRN PRN Propranolol Hcl 80 Mg Cap.sa.24h 80 Mg PO DAILY Lisinopril 20 Mg Tablet 20 Mg PO DAILY Lasix (Furosemide) 40 Mg Tablet 40 Mg PO DAILY Metformin Hcl 1,000 Mg Tablet 1,000 Mg PO BIDWMEALS Toujeo Solostar (Insulin Glargine,Hum.rec.anlog) 300 Unit/1 Ml Insuln.pen 30 Unit SQ DAILY Novolog Flexpen (Insulin Aspart) 100 Unit/1 Ml Insuln.pen 25 Unit SQ TIDAC uses sliding scale based on Dexacom Duloxetine Hcl 30 Mg Capsule.dr 30 Mg PO DAILY Vitals/I & O Vital Sign - Last 24 Hours 11/15/20 11/15/20 11/15/20 11/15/20 11:15 11:45 15:01 15:13 Temp 97.0 97.8 97.0 97.8 Pulse 66 67 Resp 24 22 B/P (MAP) 132/60 (84) 146/71 (96) Pulse Ox 96 95 96 100 O2 Delivery BiPAP/CPAP BiPAP/CPAP BiPAP/CPAP BiPAP/CPAP 11/15/20 11/15/20 11/15/20 11/15/20 19:00 21:01 22:30 22:30 Temp 96.3 96.3 Pulse 64 Resp 26 B/P (MAP) 122/69 (86) Pulse Ox 95 97 O2 Delivery BiPAP/CPAP BiPAP/CPAP Bi-pap O2 Flow Rate 15.0 15.0 11/15/20 11/16/20 11/16/20 11/16/20 23:00 00:12 00:54 03:00 Temp 96.4 96.0 96.4 96.0 Pulse 67 68 82 Resp 21 22 B/P (MAP) 128/63 (84) 120/64 (82) Pulse Ox 100 97 98 99 O2 Delivery BiPAP/CPAP BiPAP/CPAP BiPAP/CPAP BiPAP/CPAP 11/16/20 11/16/20 11/16/20 11/16/20 04:36 07:00 08:00 08:00 Temp 95.3 95.3 Pulse 71 Resp 20 B/P (MAP) 149/72 (97) Pulse Ox 97 100 O2 Delivery BiPAP/CPAP BiPAP/CPAP Bi-pap O2 Flow Rate 15.0 15.0 11/16/20 11/16/20 11/16/20 08:25 08:31 09:11 Temp 95.3 95.3 Pulse 71 71 Resp 20 B/P (MAP) 149/72 (97) 149/72 Pulse Ox 98 100 O2 Delivery BiPAP/CPAP BiPAP/CPAP Intake and Output 11/15/20 11/15/20 11/16/20 15:00 23:00 07:00 Intake Total 240 ml 320 ml 500 ml Balance 240 ml 320 ml 500 ml Nutrition Consultation Dietary Evaluation: Recommendations by RD: Dietary education by RD Comments: REC continue cardiac ( low Na ) diet , ADA offer snacks/supplements from unit prn will send Glucerna supplements tid Expected Outcomes/Goals: home on hospice Malnutrition Findings: Food and Nutrition Intake (Sev: <50% est energy req 5days Weight Status: Overweight Fluid Accumulation (Severe): Severe Justicifation of Admission Dx: Justifications for Admission: Justification of Admission Dx: Comment: RENNY ARCINIEGA MD Nov 16, 2020 10:03
[2020-11-16 11:00] VITALS: BP 122/63
[2020-11-16 15:00] VITALS: BP 111/65
--- NOTE | 2020-11-16 15:45 | PDOC3 ---
Discharge Summary Date of Admission: Nov 08, 2020 Date of Discharge: Nov 16, 2020 Follow-Up: 1-2 days Admitting Diagnosis comment: DISCHARGE HOSPITAL SUMMARY DATE OF ADMIT 11-08-20 DATE OF D/C 11-16-20 COMPLICATIONS NONE CONSULTS PULMONARY D/C CONDITION, GUARDED PROGNOSIS, POOR, D/C TO HOME HOSPICE WITH BIPAP SUPPORT Chief Complaint DISCHARGE DX Acute respiratory failure with Hypoxia - related to COVID 19 pneumonia, will also treat for likely gram negative pneumonia as well given his cirrhosis and risk factors.. Steroids and remdesivir ordered. Wean O2 as tolerated, BIPAP SUP[PORT COVID-19 - with pneumonia, have d/w patient risks of remdesivir in liver disease, he wishes to have treatment, WORSENING HYPOXIA Cirrhosis - with ascites. S/p TIPS for variceal bleeding in 2013. GI following. Will continue diuretics and monitor. EGD and colonoscopy w/ Dr. Hunter in 06/2020 - path w/ collagenous colitis. Hyperammonemia - likely related to cirrhosis Elevated troponin - likely demand ischemia, will trend Anemia- likely of chronic disease. will trend Leukopenia - likely related to liver disease and covid 19, will monitor HTN HLD DM -on Toujeo and sliding scale, will convert to Lantus and increase sliding scale while he is on dexamethasone. Prostate cancer - s/p radiation therapy, in remission OA - stable Gout - not in flare currently Pancytopenia, elevated bili and AST Cirrhosis, h/o variceal bleeding and ascites, TIPS occluded collagenous colitis - takes Imodium PRN at home SEVERE PROTEIN-CALORIC MALNUTRITION PLAN FEN - ADA diet PPX - lovenox, will watch platelets DNR OF 11-12 D/W DR KRISTA Bueno - inpatient telemetry monitoring in COVID 19 isolation unit paracentesis today 11-12 CANCELLED no paracentesis until COVID infection cleared. 11-13 POOR INTAKE, D/W RN, will consult hospice, DNR// Pulmonary status worsening. 11-14 hospice consult for goals of care //D-dimer may be liver disease. CPM 11-16 DISCHARGE WITH HOME HOSPICE, [facility],, D/W DR SHANKS BY PHONE Continue supplemental oxygen, currently on 03/04 at 80% BiPAP, reduce FiO2 to 75% Markedly elevated D-dimer, will obtain CTA of chest, treatment dose Lovenox 38 MIN pt exam, chart review D/C PLANNING , > 50% of time spent with exam, chart review, pt care coordination History of Present Illness History of Present Illness Mr Orourke is a 75-year-old male w/ PMHx prostate ca (s/p radx 2014), depression, DM2, Cirrhosis who presents to [place] ED with report of shortness of breath that occurred upon waking day of admission when getting up to go to the restroom. Patient was recently diagnosed with COVID-19 on 11/02/2020. Has cirrhosis with regular paracentesis, last paracentesis was approximately [address] [facility]. Patient reports his abdomen does not feel overly distended and does not think he needs paracentesis at this time. Reports subjective fever and chills. Denies trauma. Very short of breath. H/o cirrhosis reportedly from fatty liver and alcohol. H/o variceal bleeding and ascites/paracentesis in 2013. S/p TIPS then - no issues w/ bleeding or ascites since then until 08/2020 - TIPS thrombosed (see US here 09/17, also reports MRI by urologist in showed non-functioning TIPS). Paracentesis x 4 since then, last 7.4L on 11/01. Labs at [facility] with WBC 3.4, Hb 10.8, platelets 77, NA 136, K3.9, BUN 20, CR 1, glucose 137, magnesium 1.6, bilirubin 2.2, AST 60, ALT 45, INR 1.4, troponin 0 0.066, BNP 2592, albumin 2.6, ammonia 62, lactic acid 2.3, D-dimer 7.41 CTPA with no pulmonary embolism, bilateral diffuse groundglass opacities, cirrhosis with TIPS moderate ascites. EKG appears NSR at 88 bpm, some baseline artifact noted primarily to aVL, NO ST elevation, LAFB, QRS 86ms, QT/QTc 396/483ms Patient was found to be hypoxic upon EMS arrival. Improved with supplemental O2. Patient transferred to [place] for further care due to lack of GI resources at [place]. Seen bedside with O2 saturations 91% on 3 L nasal cannula O2. Patient notes that he feels terrible. He is requested Covid treatment advised remdesivir and liver disease has not been well studied. He wishes to move forward with treatment. 11/09: Patient afebrile, breathing on 2 L nasal cannula. Remdesivir day 11/23. WBC 1.6 yesterday, WBC 1.3 today. This could be seen in viral infections or hypersplenism secondary to cirrhosis. Continuetomonitor. Continue Rocephin, doxy, steroids, and supportive care. 11/10: Afebrile, breathing 2 L nasal cannula. WBC slightly improved. Liver enzymes are not significantly elevated, will continue to monitor. Continue treatment with remdesivir, steroids, antibiotics. 11/11: Patient breathing on 6 L nasal cannula. Afebrile. LFTs good. Continue remdesivir, steroids, antibiotics. 11-12 INC HYPOXIA ON NRB 15 LITERS NC , NOW DNR DR VELASCO CONSULTED Pancytopenia, elevated bili and AST (better) Cirrhosis, h/o variceal bleeding and ascites, TIPS occluded collagenous colitis - takes Imodium PRN at home 1=26 HOSPICE intake discussed, poor prognosis, D/W CASE MGT 11-14 hospice consult for goals of care today 11-16 CTA CHEST TODAY, ELEVATED D DIMER, HOME WITH [facility] TOMORROW IF ACCEPTED, D/W BY PHONE Vitals Vitals Vital Signs Date Time Temp Pulse Resp B/P (MAP) Pulse Ox O2 Delivery O2 Flow Rate FiO2 11/16/20 09:11 71 149/72 11/16/20 08:31 95.3 20 100 BiPAP/CPAP 95.3 11/16/20 08:00 15.0 Physical Exam General: Alert, Oriented X3, Cooperative, mild distress Heart: Regular rate Lungs: Crackles Abdomen: Normal bowel sounds, Soft, Other (Fluid wave) Extremities: No clubbing, No cyanosis, No tenderness/swelling Skin: No rashes, No breakdown, No significant lesion Brief Hospital Course Mr. Orourke is a 75 old [sex] who presented with [COVID 19 PNEUMONIA ] CONDITION AT DISCHARGE: Comment (GUARDED) Discharge Medications Current Medications Furosemide (Lasix) 40 mg DAILY PO Last administered on 11/16/20at 09:11; Start 11/09/20 at 09:00 Lactulose (Lactulose) 20 gm DAILY PO ; Start 11/09/20 at 09:00; Stop 11/09/20 at 10:20; Status DC Lactulose (Lactulose) 20 gm PRN DAILY PRN PO CONSTIPATION; Start 11/08/20 at 12:15 Dexamethasone Sodium Phosphate (Decadron) 6 mg DAILY IVP Last administered on 11/15/20at 07:59; Start 11/09/20 at 09:00; Stop 11/15/20 at 08:58; Status DC Dexamethasone Sodium Phosphate (Decadron) 6 mg 1X ONCE IVP Last administered on 11/08/20at 13:10; Start 11/08/20 at 12:30; Stop 11/08/20 at 12:35; Status DC Ceftriaxone Sodium (Rocephin) 1 gm Q24H IVP Last administered on 11/12/20at 13:00; Start 11/08/20 at 13:00; Stop 11/12/20 at 13:01; Status DC Doxycycline Hyclate 100 mg/ Dextrose 100 ml @ 50 mls/hr Q12HR IV Last administered on 11/13/20at 09:00; Start 11/08/20 at 21:00; Stop 11/13/20 at 20:59; Status DC Ondansetron HCl (Zofran) 4 mg PRN Q6HRS PRN IVP NAUSEA/VOMITING Last administered on 11/09/20at 20:13; Start 11/08/20 at 12:45 Al Hydroxide/Mg Hydroxide (Mylanta Plus Xs) 30 ml PRN Q3HRS PRN PO HEARTBURN / GAS; Start 11/08/20 at 12:45 Calcium Carbonate/ Glycine (Tums) 500 mg PRN Q3HRS PRN PO UPSET STOMACH; Start 11/08/20 at 12:45 Acetaminophen (Tylenol) 650 mg PRN Q6HRS PRN PO Headaches, Temp > 101.5F; Start 11/08/20 at 12:45 Bisacodyl (Dulcolax Supp) 10 mg PRN DAILY PRN OR CONSTIPATION; Start 11/08/20 at 12:45 Enoxaparin Sodium (Lovenox 40mg Syringe) 40 mg Q24H SQ Last administered on 11/12/20at 17:24; Start 11/08/20 at 16:00; Stop 11/14/20 at 11:53; Status DC Duloxetine HCl (Cymbalta) 30 mg DAILY PO Last administered on 11/16/20at 09:10; Start 11/09/20 at 09:00 Insulin Human Lispro (HumaLOG) 8 units TIDWMEALS SQ Last administered on 11/16/20at 11:59; Start 11/08/20 at 17:00 Insulin Glargine (Lantus Syringe) 30 unit QHS SQ Last administered on 11/15/20at 23:07; Start 11/08/20 at 21:00 Insulin Human Lispro (HumaLOG) 0-9 UNITS TIDWMEALS SQ Last administered on 11/16at 12:00; Start 11/08/20 at 17:00 Dextrose (Dextrose 50%-Water Syringe) 12.5 gm PRN Q15MIN PRN IV SEE COMMENTS; Start 11/08/20 at 14:15 Remdesivir 200 mg/ Sodium Chloride 210 ml @ 210 mls/hr 1X ONCE IV Last administered on 11/08/20at 15:51; Start 11/08/20 at 15:00; Stop 11/08/20 at 15:59; Status DC Remdesivir 100 mg/ Sodium Chloride 230 ml @ 460 mls/hr Q24H IV Last adminis tered on 11/12/20at 17:24; Start 11/09/20 at 15:00; Stop 11/12/20 at 15:29; Status DC Zinc Sulfate (Orazinc) 220 mg DAILY PO Last administered on 11/16/20at 09:11; Start 11/08/20 at 14:45 Thiamine Mononitrate (Vitamin B-1) 100 mg DAILY PO Last administered on 11/16/20at 09:10; Start 11/08/20 at 14:45 Guaifenesin (Robitussin Dm) 10 ml PRN Q6HRS PRN PO COUGH; Start 11/08/20 at 14:45 Propranolol HCl (Inderal La) 80 mg DAILY PO Last administered on 11/16/20at 09:11; Start 11/08/20 at 14:45 Albuterol Sulfate (Ventolin Hfa) 2 puff PRN Q4HRS PRN INH SHORTNESS OF BREATH Last administered on 11/12/20at 08:18; Start 11/08/20 at 15:15 Insulin Human Lispro (HumaLOG) 13 units 1X ONCE SQ Last administered on 11/08/20at 21:51; Start 11/08/20 at 21:45; Stop 11/08/20 at 21:53; Status DC Famotidine (Pepcid) 20 mg QHS PO Last administered on 11/15/20at 22:33; Start 11/09/20 at 21:00 Loperamide HCl (Imodium) 2 mg PRN Q15MIN PRN PO DIARRHEA Last administered on 11/10/20at 22:34; Start 11/10/20 at 21:45 Hydralazine HCl (Apresoline Inj) 10 mg PRN Q2HRS PRN IVP ELEVATED BP, SEE COMMENTS Last administered on 11/12/20at 20:31; Start 11/11/20 at 00:15 Lorazepam (Ativan) 0.25 mg 1X ONCE PO Last administered on 11/12/20at 20:27; Start 11/12/20 at 20:15; Stop 11/12/20 at 20:16; Status DC Lorazepam (Ativan) 0.25 mg PRN Q6HRS PRN PO ANXIETY / AGITATION Last administered on 11/15/20at 22:32; Start 11/12/20 at 23:45 Enoxaparin Sodium (Lovenox Per Pharmacy Treatment Dosing) 1 each PRN DAILY PRN MC SEE COMMENTS; Start 11/14/20 at 12:00 Enoxaparin Sodium (Lovenox 100mg Syringe) 100 mg Q12HR SQ Last administered on 11/16/20at 09:11; Start 11/14/20 at 12:00 Dexamethasone Sodium Phosphate (Decadron) 4 mg DAILY IVP ; Start 11/15/20 at 09:00; Stop 11/16/20 at 09:00; Status DC Active Scripts Active Reported Imodium A-D (Loperamide HCl) 2 Mg Capsule 2 Mg PO PRN PRN Propranolol Hcl 80 Mg Cap.sa.24h 80 Mg PO DAILY Lisinopril 20 Mg Tablet 20 Mg PO DAILY Lasix (Furosemide) 40 Mg Tablet 40 Mg PO DAILY Metformin Hcl 1,000 Mg Tablet 1,000 Mg PO BIDWMEALS Toujeo Solostar (Insulin Glargine,Hum.rec.anlog) 300 Unit/1 Ml Insuln.pen 30 Unit SQ DAILY Novolog Flexpen (Insulin Aspart) 100 Unit/1 Ml Insuln.pen 25 Unit SQ TIDAC uses sliding scale based on Dexacom Duloxetine Hcl 30 Mg Capsule.dr 30 Mg PO DAILY Vital Signs Vital Signs Date Time Temp Pulse Resp B/P (MAP) Pulse Ox O2 Delivery O2 Flow Rate FiO2 11/16/20 15:00 97.0 61 21 111/65 (80) 95 BiPAP/CPAP 97.0 11/16/20 08:00 15.0 Labs Laboratory Tests Test 11/14/20 16:08 11/14/20 19:17 11/15/20 07:10 11/15/20 08:10 Glucose (Fingerstick) 205 mg/dL (70-99) 234 mg/dL (70-99) 195 mg/dL (70-99) White Blood Count 3.6 x10^3/uL (4.0-11.0) Red Blood Count 3.51 x10^6/uL (4.30-5.70) Hemoglobin 11.1 g/dL (13.0-17.5) Hematocrit 33.5 % (39.0-53.0) Mean Corpuscular Volume 95 fL (79-100) Mean Corpuscular Hemoglobin 32 pg (25-35) Mean Corpuscular Hemoglobin Concent 33 g/dL (31-37) Red Cell Distribution Width 15.2 % (11.5-14.5) Platelet Count 57 x10^3/uL (140-400) Neutrophils (%) (Auto) 84 % (31-73) Lymphocytes (%) (Auto) 3 % (24-48) Monocytes (%) (Auto) 13 % (0-9) Eosinophils (%) (Auto) 0 % (0-3) Basophils (%) (Auto) 0 % (0-3) Neutrophils # (Auto) 3.0 x10^3/uL (1.8-7.7) Lymphocytes # (Auto) 0.1 x10^3/uL (1.0-4.8) Monocytes # (Auto) 0.5 x10^3/uL (0.0-1.1) Eosinophils # (Auto) 0.0 x10^3/uL (0.0-0.7) Basophils # (Auto) 0.0 x10^3/uL (0.0-0.2) Sodium Level 143 mmol/L (136-145) Potassium Level 4.6 mmol/L (3.5-5.1) Chloride Level 104 mmol/L (98-107) Carbon Dioxide Level 34 mmol/L (21-32) Anion Gap 5 (6-14) Blood Urea Nitrogen 36 mg/dL (8-26) Creatinine 0.9 mg/dL (0.7-1.3) Estimated GFR (Cockcroft-Gault) 82.3 BUN/Creatinine Ratio 40 (6-20) Glucose Level 187 mg/dL (70-99) Calcium Level 8.9 mg/dL (8.5-10.1) Total Bilirubin 2.3 mg/dL (0.2-1.0) Aspartate Amino Transf (AST/SGOT) 36 U/L (15-37) Alanine Aminotransferase (ALT/SGPT) 30 U/L (16-63) Alkaline Phosphatase 117 U/L (46-116) Total Protein 6.5 g/dL (6.4-8.2) Albumin 2.2 g/dL (3.4-5.0) Albumin/Globulin Ratio 0.5 (1.0-1.7) Test 11/15/20 11:21 11/15/20 16:21 11/15/20 20:07 11/16/20 07:23 Glucose (Fingerstick) 216 mg/dL (70-99) 134 mg/dL (70-99) 229 mg/dL (70-99) 224 mg/dL (70-99) Test 11/16/20 11:33 Glucose (Fingerstick) 221 mg/dL (70-99) Laboratory Tests Test 11/15/20 16:21 11/15/20 20:07 11/16/20 07:23 11/16/20 11:33 Glucose (Fingerstick) 134 mg/dL (70-99) 229 mg/dL (70-99) 224 mg/dL (70-99) 221 mg/dL (70-99) Allergies Allergies Coded Allergies Type Severity Reaction Last Updated Verified No Known Drug Allergies 06/22/20 No Disposition/Orders: D/C to Home w/ Hospice Justicifation of Admission Dx: Justifications for Admission: Justification of Admission Dx: Comment: RENNY ARCINIEGA MD Nov 16, 2020 15:45
[2020-11-16] MEDS ORDERED: LORA0.5T96 PO (15:50)
--- NOTE | 2020-11-16 15:52 | SNU/HH DC ---
DISCHARGE ORDERS DISCHARGE INFORMATION: CONDITION ON DISCHARGE: Guarded CODE STATUS: Code Status: DNR/DNI ALF: SNF STAY <30 DAYS: No HOSPICE: HOSPICE: Yes HOSPICE EVAL & TREAT: Yes LTAC: ADMIT TO LTAC: No POST DISCHARGE ORDERS: ACTIVITY ORDERS: Resume previous activity WEIGHT BEARING STATUS: No restrictions DIET AFTER DISCHARGE: Regular WOUND/INCISION CARE: Keep wound/cast CDI CHECKS AFTER DISCHARGE: CHECKS AFTER DISCHARGE: Check blood press - daily, Weigh Yourself Daily FOLLOW-UP: PHYSICIAN FOLLOW-UP: DR SHANKS, HOSPICE TODAY TREATMENT/EQUIPMENT ORDERS: ADAPTIVE EQUIPMENT NEEDED: Front wheeled walker RESPIRATORY EQUIPMENT NEEDED: Oxygen, Nebulizer, BiPAP Physical Therapy For: Evalulation/Treatment Occupational Therapy For: Evaluation/Treatment Speech Language Pathology For: Evaluation/Treatment DISCHARGE MEDICATIONS: Home Meds Reported Medications Loperamide HCl (Imodium A-D) 2 Mg Capsule, 2 MG PO PRN PRN for DIARRHEA, CAP 11/08/20 Propranolol Hcl (PROPRANOLOL HCL) 80 Mg Cap.sa.24h, 80 MG PO DAILY for , CAP.SR 09/03/20 Lisinopril (LISINOPRIL) 20 Mg Tablet, 20 MG PO DAILY for FOR HYPERTENSION, #30 TAB 0 Refills 06/22/20 Furosemide (LASIX) 40 Mg Tablet, 40 MG PO DAILY for chf, TAB 06/22/20 Metformin Hcl (METFORMIN HCL) 1,000 Mg Tablet, 1000 MG PO BIDWMEALS for iddm, TAB 06/22/20 Insulin Glargine,Hum.rec.anlog (Toujeo Solostar) 300 Unit/1 Ml Insuln.pen, 30 UNIT SQ DAILY for iddm, EACH 06/22/20 Insulin Aspart (NOVOLOG FLEXPEN) 100 Unit/1 Ml Insuln.pen, 25 UNIT SQ TIDAC for iddm uses sliding scale based on Dexacom 01/07/14 Duloxetine Hcl (DULOXETINE HCL) 30 Mg Capsule., 30 MG PO DAILY 01/07/14 RENNY ARCINIEGA MD Nov 16, 2020 15:52
[2020-11-16 19:00] VITALS: BP 106/62
--- NOTE | 2020-11-16 21:36 | NUR ---
Patient discharged to home with hospice at 1999 via EMS on 15L NRB. Bipap equipment and oxygen tanks for home use sent with pt. notified of pt's departure.
== END 2020-11-16 20:00 | disposition hospice, home (50) | DRG 177 ==
LOC: 6 SOUTH 09:05
PROVIDERS: ADMIT Family Medicine; ATTEND Family Medicine
PROC: XW033E5 Introduction of Remdesivir Anti-infective into Peripheral Vein, Percutaneous Approach, New Technology Group 5 (ICD-10-PCS; principal; 2020-11-13)
PROC: 5A09457 Assistance with Respiratory Ventilation, 24-96 Consecutive Hours, Continuous Positive Airway Pressure (ICD-10-PCS; 2020-11-13)
DX: U07.1 COVID-19 (principal); J12.82 Pneumonia due to coronavirus disease 2019; J96.01 Acute respiratory failure with hypoxia; E43 Unspecified severe protein-calorie malnutrition; D61.818 Other pancytopenia; I24.8 Other forms of acute ischemic heart disease; R18.8 Other ascites; T82.898A Other specified complication of vascular prosthetic devices, implants and grafts, initial encounter; K74.60 Unspecified cirrhosis of liver; I10 Essential (primary) hypertension; E11.9 Type 2 diabetes mellitus without complications; E78.5 Hyperlipidemia, unspecified; M10.9 Gout, unspecified; M19.90 Unspecified osteoarthritis, unspecified site; D63.8 Anemia in other chronic diseases classified elsewhere; Z66 Do not resuscitate; F32.9 Major depressive disorder, single episode, unspecified; K76.0 Fatty (change of) liver, not elsewhere classified; Z82.49 Family history of ischemic heart disease and other diseases of the circulatory system; Z85.46 Personal history of malignant neoplasm of prostate; Z92.3 Personal history of irradiation; Z96.653 Presence of artificial knee joint, bilateral; Z68.28 Body mass index [BMI] 28.0-28.9, adult; Z90.49 Acquired absence of other specified parts of digestive tract; Y83.8 Other surgical procedures as the cause of abnormal reaction of the patient, or of later complication, without mention of misadventure at the time of the procedure; K52.831 Collagenous colitis; Z78.9 Other specified health status; B96.89 Other specified bacterial agents as the cause of diseases classified elsewhere
CPT/HCPCS: 36415; 36600; 71045; 80048; 80053; 80076; 82140; 82550; 82728; 82805; 82962; 83615; 83735; 83880; 85007; 85025; 85379; 85610; 85730; 94660; J0360; J0696; J1100; J1650; J1815; J2405; J3490; J7050; J7060; G0378; J7030